=== PATIENT | female | born 1960 | race Caucasian/White ===

== ENCOUNTER → 2022-02-14 13:27 | Outpatient (BNVA) | payer MEDICARE, SELFPAY | PROVIDERS: Family Provider Family Medicine; PCP Family Medicine; Visit Provider Obstetrics & Gynecology | DX: R32 Unspecified urinary incontinence (principal); R10.2 Pelvic and perineal pain | CPT/HCPCS: 81000 ==

== ENCOUNTER 2022-03-07 10:48 | Outpatient (CLI) | payer MEDICARE, SELFPAY ==
--- NOTE | 2022-03-07 11:00 | US_ITS ---
WS: [id number] TRANSABDOMINAL PELVIC AND TRANSVAGINAL PELVIC ULTRASOUND HISTORY: R10.2 - Pelvic and perineal pain COMPARISON: None available. Status post hysterectomy. Uterus is not identified. No midline mass. Right ovary: 2.1 cm x 2.4 cm x 1.1 cm. Small caliber ovary. No solid mass. Normal appearance of the o vary and normal vascularity. Left ovary: Not identified. No adnexal mass. No free fluid. US/US pelvic with transvaginal IMPRESSION: 1. No abnormality identified. 2. Status post hysterectomy. 3. LEFT ovary is not identified.
== END 2022-03-07 10:49 | disposition home or self-care (01) ==
LOC: RAD 10:49
PROVIDERS: Family Provider Family Medicine; PCP Family Medicine; Visit Provider Obstetrics & Gynecology
DX: R10.2 Pelvic and perineal pain (principal); Z90.710 Acquired absence of both cervix and uterus
CPT/HCPCS: 76830; 76856

== ENCOUNTER 2022-06-09 12:49 | Outpatient (CLI) | payer MEDICARE, SELFPAY ==
--- NOTE | 2022-06-09 13:01 | MM_ITS ---
WS: [id number] BILATERAL 3D TOMOSYNTHESIS DIGITAL SCREENING MAMMOGRAPHY WITH CAD CLINICAL INFORMATION: SCREENING HISTORY: Screening mammogram. No current complaints. COMPARISON: May 14, 2020 TECHNIQUE: Bilateral CC and MLO views. FINDINGS: The breasts are composed of heterogeneous fibroglandular density tissue, which can limit the detectio n of small underlying mass lesions. No suspicious mass, asymmetry, calcifications, or architectural d istortion. No evidence of malignancy. A few incidental lucent centered and punctate calcifications. V ascular calcification. MM/[place] [id number] IMPRESSION: BI-RADS: 2-Benign FOLLOW UP: 1 Year Follow-up Recommend return to annual screening mammography.
== END 2022-06-09 12:50 | disposition home or self-care (01) ==
LOC: RAD 12:50
PROVIDERS: PCP Nurse Practitioner Family; Visit Provider Nurse Practitioner Family
DX: Z12.31 Encounter for screening mammogram for malignant neoplasm of breast (principal)
CPT/HCPCS: 77063; 77067

== ENCOUNTER 2023-01-24 14:36 | Oncology outpatient (recurring) (ONCR) | payer MEDICARE, SELFPAY ==
[2023-01-24 16:23] LABS: Basophils % 0.7 %; Eosinophils # 0.1 10^3/uL (0.0-0.8); Eosinophils % 1.7 %; Hematocrit 37.6 % (37.0-47.0); Hemoglobin 12.4 g/dL (11.5-15.3); Lymphocytes # 1.5 10^3/uL (0.8-4.8); Lymphocytes % 27.7 %; Mean Corpuscular Hemoglobin 31.7 pg (28.0-34.0); Mean Corpuscular Volume 96.2 fl (81-99); Mean Platelet Volume 10.9 fL (7.4-10.4); Monocytes # 0.4 10^3/uL (0.2-0.9); Monocytes % 7.9 %; Neutrophils # 3.31 10^3/uL (1.8-7.7); Neutrophils % 61.8 %; Nucleated Red Blood Cells % 0 %; Platelet Count 222 10^3/cmm (130-400); Red Blood Count 3.91 10^6/uL (4.1-5.3); Red Cell Distribution Width 12.6 % (12.1-15.1); White Blood Count 5.4 10^3/uL (4.0-10.0)
[2023-01-24 16:55] LABS: HIV 1 & 2 Antibody Non-Reactive (Non-Reactiv); HIV 1 & 2 Antigen Non-Reactive (Non-Reactiv)
[2023-01-24 17:04] LABS: Hepatitis A Antibody IgM Non-Reactive (Nonreactive); Hepatitis B Core AB, Total Non-Reactive (Nonreactive); Hepatitis B Surface AB 3.5 (11.5-1000); Hepatitis B Surface Antigen Non-Reactive (Nonreactive); Hepatitis C Virus Antibody Non-Reactive (Nonreactive)
[2023-01-25 13:25] LABS: EBV Early Antigen AB IGG <9.00 U/mL; EBV IGM TEST <36.00 U/mL; EBV Nuclear AG <18.00 U/mL
== END 2023-02-02 23:59 | disposition home or self-care (01) ==
PROVIDERS: PCP Nurse Practitioner Family; Visit Provider Internal Medicine Medical Oncology
DX: D69.6 Thrombocytopenia, unspecified (principal); D70.9 Neutropenia, unspecified
CPT/HCPCS: 36415; 85025; 86663; 86664; 86665; 86705; 86706; 86709; 86803; 87340; 87806; 99204

== ENCOUNTER 2023-03-08 12:03 | Oncology outpatient (recurring) (ONCR) | payer MEDICARE, SELFPAY ==
[2023-03-08 12:45] VITALS: BP 131/88; PULSE 97; TEMP 37.3; O2SAT 96
[2023-03-08 13:14] LABS: Basophils % 0.8 %; Eosinophils # 0.1 10^3/uL (0.0-0.8); Eosinophils % 2.8 %; Hematocrit 38.4 % (37.0-47.0); Hemoglobin 12.6 g/dL (11.5-15.3); Lymphocytes # 1.4 10^3/uL (0.8-4.8); Lymphocytes % 55.8 %; Mean Corpuscular HGB Conc 32.8 g/dL (30.0-36.0); Mean Corpuscular Hemoglobin 32.5 pg (28.0-34.0); Mean Platelet Volume 10.4 fL (7.4-10.4); Monocytes # 0.4 10^3/uL (0.2-0.9); Monocytes % 14.9 %; Neutrophils % 25.3 %; Nucleated Red Blood Cells % 0 %; Platelet Count 185 10^3/cmm (130-400); Red Blood Count 3.88 10^6/uL (4.1-5.3); Red Cell Distribution Width 12.8 % (12.1-15.1); White Blood Count 2.5 10^3/uL (4.0-10.0)
[2023-03-08 13:16] LABS: Neutrophils # 0.63 10^3/uL (1.8-7.7)
== END 2023-04-05 23:59 | disposition home or self-care (01) ==
LOC: ONCMED 12:05
PROVIDERS: PCP Nurse Practitioner Family; Visit Provider Internal Medicine Medical Oncology
DX: D70.9 Neutropenia, unspecified (principal); B27.90 Infectious mononucleosis, unspecified without complication; M79.7 Fibromyalgia
CPT/HCPCS: 36415; 85025; 99213

== ENCOUNTER 2023-10-02 17:57 | Inpatient (IN) | payer MEDICARE, SELFPAY ==
--- NOTE | 2023-10-02 18:03 | XRR_ITS ---
PROCEDURE INFORMATION: Exam: XR Chest Exam date and time: 10/02/2023 6:20 PM Age: 63 years old Clinical indication: Other: Weakness TECHNIQUE: Imaging protocol: Radiologic exam of the chest. Views: 1 view. COMPARISON: No relevant prior studies available. FINDINGS: Lungs: Unremarkable. No consolidation or mass. Pleural spaces: Unremarkable. No pleural effusion. No pneumothorax. Heart/Mediastinum: Moderate cardiomegaly is noted. Bones/joints: Unremarkable. XR/XR chest 1V portable [id number] IMPRESSION: Stable cardiomegaly
--- NOTE | 2023-10-02 18:04 | ECG_ITS ---
[facility] Test Date: 2023-10-02 Pat Name: Shirley Gilmore Department: Room: Gender: Female Nurse Discharge: : 1960 Requested By: Jim Boles Order Number: [id number] Corinne MD: Onel Carbone M.D. Measurements Intervals [place] Rate: 49 P: 46 IA: 153 QRS: 1 QRSD: 99 T: -19 QT: 515 QTc: 469 Interpretive Statements SINUS BRADYCARDIA VOLTAGE CRITERIA FOR LVH [MEETS CRITERIA IN ONE OF: R(aVL), S(V1), R(V5), R(V5/V6)+S(V1)] ST DEVIATION AND MODERATE T-WAVE ABNORMALITY, CONSIDER ANTERIOR ISCHEMIA [-0.1+ mV T-WAVE IN V3/V4] Compared to ECG 09/29/2016 01:01:39 Left ventricular hypertrophy now present Possible ischemia now present T-wave abnormality still present Electronically Signed On 10-03-2023 9:13:36 FITNESS SPECIALIST by Onel Carbone M.D. [email or web address]
[2023-10-02 18:05] VITALS: BP 168/85; PULSE 47; RESP 16; TEMP 36.9; O2SAT 96; BMI 33.0
[2023-10-02 18:19] LABS: Glucose Point of Care 109 mg/dL (70-110)
--- NOTE | 2023-10-02 18:26 | CTR_ITS ---
PROCEDURE INFORMATION: Exam: CT Head Without Contrast Exam date and time: 10/02/2023 7:06 PM Age: 63 years old Clinical indication: Altered mental status/memory loss; Additional info: AMS TECHNIQUE: Imaging protocol: Computed tomography of the head without contrast. Radiation optimization: All CT scans at this facility use at least one of these dose optimization techniques: automated exposure control; mA and/or kV adjustment per patient size (includes targeted exams where dose is matched to clinical indication); or iterative reconstruction. COMPARISON: No relevant prior studies available. RADIATION DOSE METRICS: Total DLP (mGy-cm): 1081 FINDINGS: Brain: Normal. No hemorrhage. Unremarkable white matter. No mass effect or acute infarct. Cerebral ventricles: No ventriculomegaly. No midline shift. Paranasal sinuses: Visualized sinuses are unremarkable. No fluid levels. Mastoid air cells: Visualized mastoid air cells are well aerated. Bones/joints: Unremarkable. No acute fracture. Soft tissues: Unremarkable. CT/CT head wo con* [id number] IMPRESSION: No acute intracranial abnormality.
[2023-10-02 18:32] LABS: Basophils % 0.1 %; Eosinophils % 0.1 %; Hematocrit 38.2 % (36-47); Lymphocytes # 1.1 10^3/uL (0.8-4.8); Lymphocytes % 13.9 %; Mean Corpuscular Hemoglobin 31.5 pg (27-33); Mean Corpuscular Volume 95.5 fl (85-98); Mean Platelet Volume 12.2 fL (7.4-10.4); Monocytes # 0.6 10^3/uL (0.2-0.9); Monocytes % 7.1 %; Neutrophils # 6.41 10^3/uL (1.8-7.7); Neutrophils % 78.1 %; Nucleated Red Blood Cells % 0 %; Platelet Count 165 10^3/cmm (157-399); Red Cell Distribution Width 13.6 % (12.1-15.1); White Blood Count 8.21 10^3/uL (3.29-11.43)
--- NOTE | 2023-10-02 18:38 | ED_ITS ---
HPI - Weakness 2 General: Chief complaint: Weakness Stated complaint: npo since sunday larry with ams? Time Seen by Provider: 10/02/23 18:20 Source: EMS Mode of arrival: EMS Limitations: altered mental status History of Present Illness: 63-year-old female here with family stat es that starting Sunday patient has been having increasing weakness. He states that she is not really able able to walk she has not been speaking either she has had diarrhea. No fever. Here patient is following my commands but she is not speaking to me or answering any my questions family states this happened a month ago and it resolved on its own but states that she is continue to worsen with this episode the last 2 days Review of Systems 2 General: Reports: ROS unobtainable due to mental status PFSH ED 2 PFSH: Medical History Epilepsy HTN (hypertension) Recurrent herpes labialis Surgical History H/O tubal ligation H/O rotator cuff surgery left H/O section x1 S/P tonsillectomy H/O: hysterectomy H/O left wrist surgery H/O carpal tunnel repair right hand H/O breast surgery left breast cysts removed Previous back surgery x2 Family History Family/Other Diabetes maternal and paternal aunt and uncle Hyperlipidemia maternal aunt and uncle Hypertension maternal and paternal side Stroke paternal aunt Denies family history of Colon cancer Ovarian cancer Clotting disorder Heart disease Breast cancer Anesthesia complication Bleeding disorder Uterine cancer Thyroid disease Social History Smoking and tobacco/nicotine status: former use of tobacco/nicotine Quit status (tobacco/nicotine): has quit using Former quit date comment: quit in 2012, smoked x 30 years Physical Exam 2 Const: COMMON NORMALS: negative for patient oriented x3 EXAM LIMITATIONS: a ltered mental status HENMT: COMMON NORMALS: normocephalic and atraumatic HEAD & SCALP: n ormocephalic and atraumatic Eye: COMMON NORMALS: Equal, round and reactive pupils present and EOMs intact bilaterally PUPIL: Yes Equal, round and reactive pupils present Neck/C-Spine: COMMON NORMALS: full ROM and supple Chest: COMMONS NORMALS: normal inspection of the chest and normal palpation of entire chest wall Resp: COMMON NORMALS: normal respiratory effort, No retractions, No use of accessory muscles and clear to auscultation bilaterally AUSCULTATION: clear to auscultation bilaterally Cardio: COMMON NORMALS: regular rate, regular rhythm and No murmurs present (Cardio) RATE: regular rate RHYTHM: regular rhythm GI: COMMON NORMALS: Normal to inspection, nondistended, normoactive bowel sounds present, Soft to palpation, non-tender and no masses PALPATION: Yes Soft to palpation Extremity: COMMON NORMALS: normal to inspection and full ROM Neuro: COMMON NORMALS: negative for patient oriented x3 OTHER: Patient does not speak or answer any questions she will follow commands she will lift her arms and legs but is extremely weak in all extremities did have her smile she has no facial droop she able to close her eyes with no difference. Psych: COMMON NORMALS: mental status grossly normal, Normal thought process present and cooperative THOUGHT PROCESS: Normal thought process present Skin: COMMON NORMALS: no rashes or lesions noted and no wounds GENERAL SKIN EXAM: no rashes or lesions noted Course 2 Vital Signs: Vital signs: Vital Signs Temperature 98.5 F 10/02/23 18:05 Pulse Rate 59 L 10/02/23 20:30 Respiratory Rate 14 10/02/23 20:30 Blood Pressure 173/73 10/02/23 20:30 Pulse Oximetry 92 10/02/23 20:30 Oxygen Delivery Me thod Room Air 10/02/23 19:00 MDM - Weakness Medical Decision Making Patient presents with ultimately status going on for [address] here is normal blood work here is normal she does have a urinary tract infection this could be causing her symptoms will start on IV antibiotics and admit at this time. Medical Records I reviewed the patient's medical records. Lab Data I reviewed the patient's lab results. 10/02/23 18:24 10/02/23 18:24 Radiology Impressions Chest X-Ray 10/02/23 18:03 IMPRESSION: Stable cardiomegaly Head CT 10/02/23 18:26 IMPRESSION: No acute intracranial abnormality. Laboratory Results WBC 8.21 10^3/uL (3.29-11.43) 10/02/23 18: RBC 4.00 10^6/uL (3.85-5.65) 10/02/23 18: Hgb 12.60 g/dL (11.27-16.99) 10/02/23 18: Hct 38.2 % (36-47) 10/02/23 18: MCV 95.5 fl (85-98) 10/02/23 18: MCH 31.5 pg (27-33) 10/02/23 18: MCHC 33.0 g/dL (30-55) 10/02/23 18: RDW 13.6 % (12.1-15.1) 10/02/23: Plt Count 165 10^3/cmm (157-399) 10/02/23: MPV 12.2 fL (7.4-10.4) H 10/02/23 18: Neut % (Auto) 78.1 % 10/02/23 18: Lymph % (Auto) 13.9 % 10/02/23 18: [place] % (Auto) 7.1 % 10/02/23 18: Eos % (Auto) 0.1 % 10/02/23 18: Baso % (Auto) 0.1 % 10/02/23: Neut # (Auto) 6.41 10^3/uL (1.8-7.7) 10/02/23: Lymph # (Auto) 1.1 10^3/uL (0.8-4.8) 10/02/23: [place] # (Auto) 0.6 10^3/uL (0.2-0.9) 10/02/23 18: Eos # (Auto) 0.0 10^3/uL (0.0-0.8) 10/02/23: Baso # (Auto) 0.0 10^3/uL (0.0-0.1) 10/02/23: Nucleated RBC % (auto) 0 % 10/02/23: Nucleated RBCs # 0.0 /100WBC 10/02/23 18: PT 14.00 SECONDS (12.1-14.9) 10/02/23 18: INR 1.05 (0.8-1.2) 10/02/23 18:24 Sodium 145 mmol/L (136-145) 10/02/23 18:24 Potassium 3.4 mmol/L (3.5-5.1) L 10/02/23 18:24 Chloride 111 mmol/L (98-107) H 10/02/23 18:24 Carbon Dioxide 20 mmol/L (22-29) L 10/02/23 18:24 Anion Gap 17.4 (5-19) 10/02/23 18:24 BUN 27 mg/dL (8-23) H 10/02/23 18:24 Creatinine 0.6 mg/dL (0.5-0.9) 10/02/23 18:24 GFR Calculation 101.6 mL/min (90-130) 10/02/23 18:24 Glucose 102 mg/dL (65-115) 10/02/23 18:24 POC Glucose 109 mg/dL (70-110) 10/02/23 18:15 Calculated Osmolality 305 mOsm/kg (285-295) H 10/02/23 18:24 Calcium 9.8 mg/dL (8.5-10.5) 10/02/23 18:24 Total Bilirubin 0.7 mg/dL (0.15-1.2) 10/02/23 18:24 AST 33 U/L (0-32) H 10/02/23 18:24 ALT 39 U/L (0-33) H 10/02/23 18:24 Alkaline Phosphatase 111 U/L (35-105) H 10/02/23 18:24 Ammonia 25 umol/L (11-51) 10/02/23 18:24 Troponin T Baseline 19 ng/L (0-10) H 10/02/23 18:24 Troponin T 120 Minute 19.09 ng/L (0-10) H 10/02/23 20:28 Delta Troponin T 0.09 ABS# (0-10) 10/02/23 20:28 Total Protein 7.2 g/dL (6.6-8.7) 10/02/23 18:24 Albumin 4.5 g/dL (3.5-5.2) 10/02/23 18:24 Globulin 2.7 g/dL (1.3-4.6) 10/02/23 18:24 Lipase 37 U/L (13-60) 10/02/23 18:24 Urine Color Yellow (Yellow) 10/02/23 19:56 Urine Appearance Sl hazy (CLEAR) A 10/02/23 19:56 Urine pH 5 (5-7) 10/02/23 19:56 Ur Specific [place] 1.020 (1.005-1.030) 10/02/23 19:56 Urine Protein 1+ (Negative) H 10/02/23 19:56 Urine Glucose (UA) Norm (Normal) 10/02/23 19:56 Urine Ketones 1+ (Negative) H 10/02/23 19:56 Urine Blood Neg (Negative) 10/02/23 19:56 Urine Nitrate Positive (Negative) H 10/02/23 19:56 Urine Bilirubin Neg (Negative) 10/02/23 19:56 Urine Urobilinogen Norm mg/dL (Negative) 10/02/23 19:56 Ur Leukocyte Esterase 1+ (Negative) H 10/02/23 19:56 Urine RBC 0-4 /hpf (0-2) H 10/02/23 19:56 Urine WBC 40-55 /hpf (0-5) H 10/02/23 19:56 Ur Squamous Epith Cells 0-4 /hpf (0-5) H 10/02/23 19:56 Amorphous Sediment Not Reportable 10/02/23 19:56 Urine Bacteria 2+ /hpf (NONE) H 10/02/23 19:56 Urine Mucus 2+ /hpf 10/02/23 19:56 Urine Opiates Screen Negative ng/mL (Negative) 10/02/23 19:56 Ur Barbiturates Screen Negative ng/mL (Negative) 10/02/23 19:56 Valproic Acid 2.8 ug/mL (50-100) L 10/02/23 18:24 Ur Phencyclidine Scrn Negative ng/mL (Negative) 10/02/23 19:56 Ur Amphetamines Screen Negative ng/mL (Negative) 10/02/23 19:56 U Benzodiazepines Scrn Negative ng/mL (Negative) 10/02/23 19:56 Urine Cocaine Screen Negative ng/mL (Negative) 10/02/23 19:56 U Marijuana (THC) Screen Positive ng/mL (Negative) H 10/02/23 19:56 Ethyl Alcohol < 10 mg/dL (0-10) 10/02/23 18:24 All radiology interpretation(s) finalized by discharge EKG Data EKG 1: I personally reviewed and interpreted this EKG as follows: EKG interpretation date: 10/02/23 EKG interpretation time: 18:28 Interpretation: sinus yodit hr [address] elevation qrs 99 qtc 486 Discharge Plan Discharge Patient Disposition: Admitted As Inpatient Clinical Impression: UTI (urinary tract infection), Altered mental status Condition: Stable Prescriptions: No Action divalproex [Depakote ER] 500 mg tablet extended release 24 hr 500 mg PO BID pregabalin [Lyrica] 200 mg capsule 200 mg PO TID acetaminophen [Tylenol] 325 mg tablet 325 mg PO QID PRN multivitamin Tablet 1 tab PO DAILY biotin 5 mg capsule 5 mg PO DAILY lysine 1,000 mg tablet 1,000 mg PO DAILY magnesium 200 mg tablet 200 mg PO DAILY cholecalciferol (vitamin D3) [Vitamin D3] 10 mcg (400 unit) capsule 10 mcg PO DAILY Referrals: Sia Aguilar [Primary Care Provider] - Coding Level of Care Code ED [employer] 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
[2023-10-02] MEDS: sodium chloride 0.9% 1,000 ML 999 ML IV (18:44)
[2023-10-02 18:47] LABS: INR 1.05 (0.8-1.2)
[2023-10-02 18:55] LABS: Ammonia 25 umol/L (11-51)
[2023-10-02 18:57] LABS: Alanine Aminotransferase 39 U/L (0-33); Albumin Level 4.5 g/dL (3.5-5.2); Alcohol Level < 10 mg/dL (0-10); Alkaline Phosphatase 111 U/L (35-105); Anion Gap 17.4 (5-19); Aspartate Amino Transferase 33 U/L (0-32); Blood Urea Nitrogen 27 mg/dL (8-23); Calcium 9.8 mg/dL (8.5-10.5); Carbon Dioxide 20 mmol/L (22-29); Chloride 111 mmol/L (98-107); Creatinine Clr Calc Pharmacy 93.9348; Globulin 2.7 g/dL (1.3-4.6); Glomerular Filtration Rate 101.6 mL/min (90-130); Glucose 102 mg/dL (65-115); Lipase 37 U/L (13-60); Osmolality Calculated 305 mOsm/kg (285-295); Potassium 3.4 mmol/L (3.5-5.1); Sodium 145 mmol/L (136-145); Total Bilirubin 0.7 mg/dL (0.15-1.2); Total Protein 7.2 g/dL (6.6-8.7)
[2023-10-02 19:00] VITALS: BP 151/80; PULSE 52; O2SAT 97
[2023-10-02 19:44] VITALS: BP 147/80; PULSE 52; RESP 20; O2SAT 93
[2023-10-02 19:57] LABS: Troponin(5th) Baseline 19 ng/L (0-10)
[2023-10-02 20:10] LABS: Glucose Urine UA Norm (Normal); Protein Urine 1+ (Negative); Urine Appearance SL Hazy (CLEAR); Urine Color Yellow (Yellow); pH Urine 5 (5-7)
[2023-10-02 20:11] LABS: Add Urine Microscopic? YES; Amphetamines Screen Urine Negative (Negative); Barbiturates Screen Urine Negative (Negative); Benzodiazepines Screen Urine Negative (Negative); Bilirubin Urine Neg (Negative); Blood Urine Neg (Negative); Cocaine Screen Urine Negative (Negative); Ketones Urine 1+ (Negative); Leukocyte Esterase Urine 1+ (Negative); Nitrate Urine Positive (Negative); Opiate Screen Urine Negative (Negative); PCP Screen Urine Negative (Negative); THC Screen Urine Positive (Negative); Urobilinogen Urine Norm (Negative)
[2023-10-02 20:15] LABS: Add Urine Culture? Yes; Bacteria Urine 2+ /hpf; Mucus Urine 2+ /hpf; RBC Urine 0-4 /hpf (0-2); Squamous Epithelial Cell Urine 0-4 /hpf (0-5); WBC Urine 40-55 /hpf (0-5)
[2023-10-02 20:30] VITALS: BP 173/73; PULSE 59; RESP 14; O2SAT 92
[2023-10-02] MEDS: cefTRIAXone 1,000 MG in sodium chloride 0.9% (plus) 50 ML 100 MG IV (20:34)
[2023-10-02 20:52] LABS: Valproic Acid Level 2.8 ug/mL (50-100)
--- NOTE | 2023-10-02 21:00 | P.HP_ITS ---
Providers/Chief Complaint 2 Primary Care Provider: Sia Aguilar Chief Complaint: npo since sunday diareah with ams? History of Present Illness 63-year-old lady without history of dementia with history of epilepsy, recurrent herpes labialis reportedly on chronic suppression with antiviral, hypertension, has been feeling unwell since Sunday, has had nausea, vomiting, generally weak, blood pressure was low at 1 point at home in the 90s. Poor oral intake, had possibly asked for water at 1 time. Has been communicating less and in the last day or 2 has may be set up reports and otherwise has not been speaking. In ER she does open her eyes, makes eye contact, seems to nod/hum no when asked if she is in pain or discomfort, but does not answer any other questions, with RIS and conversational COVID-19. Family notes she has been feeling cold. She did not have any fever, headache, shortness of breath or cough. He did not notice any rashes apart from moisture damage/irritation to her buttocks from diarrhea. She reportedly had a similar episode a few weeks back but at that time it lasted shorter time, symptoms resolved spontaneously much quicker. She has not missed her medications, has been taking valproic acid for seizures up until Sunday, but with her acute illness has not been able to take any of her medications since then. Her seizures were tonic-clonic, family have not noticed any seizure-like activity. Review of Systems 2 General: Reports: ROS unobtainable due to mental status (Basic ROS obtained from family) Const: Reports: other (Feeling cold. ); Denies: fever(s) ENMT: Denies: throat pain Card: Denies: chest pain or edema (In the past, but not currently. ) Resp: Denies: dyspnea, productive cough or non-productive cough GI: Reports: nausea, vomiting and diarrhea; Denies: abdominal pain, hematemesis, coffee ground emesis, hematochezia or melena Skin/Breast: Denies: rash (Apart from moisture damage on butocks. ) Neuro: Reports: confusion, behavioral changes and difficulty communicating thoughts; Denies: headache(s), numbness in extremities, weakness in extremities or involuntary movements Medications/Allergies Home Medications Medication Instructions Recorded Confirmed Last Taken Type acetaminophen 325 mg tablet 325 mg PO QID PRN 02/14/22 03/08/23 Unknown History (Tylenol) biotin 5 mg capsule 5 mg PO DAILY 02/14/22 03/08/23 Unknown History divalproex 500 mg tablet,extended 500 mg PO BID 02/14/22 03/08/23 Unknown History release 24 hr (Depakote ER) lysine 1,000 mg tablet 1,000 mg PO DAILY 02/14/22 03/08/23 Unknown History multivitamin 1 tab PO DAILY 02/14/22 03/08/23 Unknown History pregabalin 200 mg capsule (Lyrica) 200 mg PO TID 02/14/22 03/08/23 Unknown History cholecalciferol (vitamin D3) 10 10 mcg PO DAILY 01/24/23 03/08/23 Unknown History mcg (400 unit) capsule (Vitamin D3) magnesium 200 mg tablet 200 mg PO DAILY 01/24/23 03/08/23 Unknown History Allergies Allergy/AdvReac Type Severity Reaction Status Date / Time No Known Allergies Allergy Verified 03/08/23 13:26 PFSH Acute 2 PFSH: Medical History Epilepsy HTN (hypertension) Recurrent herpes labialis Surgical History H/O tubal ligation H/O rotator cuff surgery left H/O section x1 S/P tonsillectomy H/O: hysterectomy H/O left wrist surgery H/O carpal tunnel repair right hand H/O breast surgery left breast cysts removed Previous back surgery x2 Family History Family/Other Diabetes maternal and paternal aunt and uncle Hyperlipidemia maternal aunt and uncle Hypertension maternal and paternal side Stroke paternal aunt Denies family history of Colon cancer Ovarian cancer Clotting disorder Heart disease Breast cancer Anesthesia complication Bleeding disorder Uterine cancer Thyroid disease Social History Smoking and tobacco/nicotine status: former use of tobacco/nicotine Quit status (tobacco/nicotine): has quit using Former quit date comment: quit in 2012, smoked x 30 years Vitals/I&O/Wt Last Vital Signs Temp 98.5 F 10/02/23 18:05 Pulse 59 L 10/02/23 20:30 Resp 14 10/02/23 20:30 BP 173/73 10/02/23 20:30 Pulse Ox 92 10/02/23 20:30 O2 Del Method Room Air 10/02/23 19:00 Weight last 48 hrs Weight 79.379 kg Physical Exam 2 Narrative: Accompanied by her and her sister. Const: COMMON NORMALS: negative for patient oriented x3 GENERAL APPEARANCE: not cooperative ORIENTATION/CONSCIOUSNESS: not awake (Wakes up to voice, makes eye contact, hums yes/no answers to 1-2 questions) HENMT: COMMON NORMALS: oropharynx normal Neck/C-Spine: COMMON NORMALS: no JVD Resp: COMMON NORMALS: normal respiratory effort and clear to auscultation bilaterally AUSCULTATION: clear to auscultation bilaterally Cardio: COMMON NORMALS: no JVD, regular rhythm, S1 normal heart sound present, S2 normal heart sound present and No murmurs present (Cardio) RHYTHM: regular rhythm HEART SOUNDS: S1 normal heart sound present and S2 normal heart sound present GI: COMMON NORMALS: Normal to inspection, nondistended, normoactive bowel sounds present, Soft to palpation and non-tender PALPATION: Yes Soft to palpation Extremity: COMMON NORMALS: no joint enlargement and no pedal edema Neuro: COMMON NORMALS: moves all extremities; negative for patient oriented x3 SENSORIUM/ORIENTATION: Yes alert OTHER: He is currently able to track although does not overly follow directions. I do not appreciate facial droop. She does not speak, difficulty finding any dysarthria, appears to have possibly aphasia. Does harm yes or no answers to monitor questions been insistent on going back to sleep, covers herself up with a blanket. Does appear to move all extremities. Skin: COMMON NORMALS: no rashes or lesions noted GENERAL SKIN EXAM: no rashes or lesions noted Data 10/02/23 18:24 10/02/23 18:24 A&P Assessment and plan (1) Acute encephalopathy: History had to be obtained from her family as she is unable to provide. Progressive encephalopathy since Sunday, initial symptoms were nausea vomiting and diarrhea, poor oral intake, generally weak. Etiology not clear. Reviewed vitals, CBC, INR, baseline anterior troponin, lipase, UA, urine drug screen, CT head, chest x-ray, ER note, discussed with ER physician. She does have at least UTI, started on treatment with ceftriaxone. Continue treatment. Urine drug screen positive for only marijuana. No seizure activity. Will check valproic acid level for possible encephalopathy related to medication toxicity. She had a similar episode several weeks back also with nausea vomiting and diarrhea as well as confusion, but seems to have resolved back to them. Discussed with family CVA could not be ruled out at this time but seems less likely. She otherwise does not appear to show focal abnormality apart from possible aphasia, symptoms appear to be more global. Possible acute metabolic encephalopathy secondary to UTI, acute illness with gastroenteritis and dehydration. Does have recurrent herpes labialis and reportedly is post to be on chronic suppression with an antiviral. Discussed consideration of herpes encephalitis. Cannot rule out at current time. Discussed treating with acyclovir empirically for now. Discussed requesting lumbar puncture for tomorrow. Cannot easily obtain MRI with her due to confusion and reports she is quite claustrophobic. In case of rapid improvement tomorrow, consider de-escalation of acyclovir. Monitor for risk of decreased blood counts, acute kidney injury. Additional assessment for gastroenteritis requested with stool studies. Poor oral intake, with nausea and vomiting, clear liquid diet as tolerating for now, otherwise will keep with IV hydration. She also has been feeling quite cold recently, will check TSH. Incidentally noted bradycardia but I do not think it is contributing to her current condition, although will want subsequent follow-up. (2) UTI (urinary tract infection): Ceftriaxone. Follow-up urine culture. (3) Altered mental status: Plan Bradycardia: Incidentally noted bradycardia but I do not think it is contributing to her current condition, although will want subsequent follow-up. Epilepsy: Check valproic acid level. Requesting to confirm home medications. No seizure-like activity. Resume valproic acid once toxicity excluded. Hypokalemia: Requested replacement potassium. Gastroenteritis, possibly viral with noted acute transaminitis, mild alk phos abnormality. Check respiratory viral panel. Will check hepatitis panel. Transaminitis: Possibly related to acute viral gastroenteritis. Hepatitis panel. Valproic acid level. Recurrent herpes labialis: Reportedly he is supposed to be on chronic antibiotic suppression. Requested to confirm home medications, please review and reconcile once available. Attestations 2 Medical Necessity Statement*: Placed in observation for additional assessment management of acute encephalopathy Diagnoses Acute encephalopathy G93.40 UTI (urinary tract infection) N39.0 Altered mental status R41.82
[2023-10-02 21:05] LABS: Troponin 5 2HR 19.09 ng/L (0-10); Troponin 5 2HR Delta 0.09 ABS# (0-10)
[2023-10-02 22:21] VITALS: BP 142/73; PULSE 62; RESP 16; TEMP 37; O2SAT 95
--- NOTE | 2023-10-02 22:21 | PC.NURSE ---
Patient received to floor at 2200 Patient only able to respond with ok or mmmhmmm . Patient cleaned and brief changed due to incontinence. Thick application of barrier cream applied due to redness to groin and elvin area. Noted some blisters and induration to gluteal fold. Patient withdraws from pain. When asked about pain she indicated hurts to skin all over. Unable to ask admission questions at this time. Will continue to monitor.
[2023-10-02 22:42] LABS: Hepatitis B Core IgM Non-Reactive (Nonreactive); Hepatitis B Surface Antigen Non-Reactive (Nonreactive); Hepatitis C Virus Antibody Non-Reactive (Nonreactive)
[2023-10-02] MEDS: lactated ringers 1,000 ML 100 ML IV (22:55)
[2023-10-02] MEDS: heparin 5,000 unit/mL INJ 1 mL 5000 UNIT SUBCUT (22:56)
[2023-10-02] MEDS: lidocaine 1% 5 ML in potassium chloride premix 100 ML 52.5 ML IV (22:56)
[2023-10-02 23:06] LABS: Thyroid Stimulating Hormone 1.82 uIU/mL (0.27-4.20)
[2023-10-02 23:26] LABS: Valproic Acid Level 2.8 ug/mL (50-100)
[2023-10-02 23:29] LABS: Hepatitis A Antibody IgM Non-Reactive (Nonreactive)
[2023-10-03] VITALS: BP 143/63; PULSE 62; RESP 17; TEMP 36.9; O2SAT 94
[2023-10-03 00:44] LABS: Basophils % 0.1 %; Eosinophils % 0.1 %; Hematocrit 32.7 % (36-47); Lymphocytes # 1.2 10^3/uL (0.8-4.8); Lymphocytes % 17.8 %; Mean Corpuscular HGB Conc 34.3 g/dL (30-55); Mean Corpuscular Hemoglobin 32.3 pg (27-33); Mean Corpuscular Volume 94.2 fl (85-98); Mean Platelet Volume 12.2 fL (7.4-10.4); Monocytes # 0.6 10^3/uL (0.2-0.9); Monocytes % 8.9 %; Neutrophils # 4.91 10^3/uL (1.8-7.7); Neutrophils % 72.7 %; Nucleated Red Blood Cells % 0 %; Platelet Count 142 10^3/cmm (157-399); Red Blood Count 3.47 10^6/uL (3.85-5.65); Red Cell Distribution Width 13.6 % (12.1-15.1); White Blood Count 6.76 10^3/uL (3.29-11.43)
[2023-10-03 01:01] LABS: Alanine Aminotransferase 33 U/L (0-33); Albumin Level 4.1 g/dL (3.5-5.2); Alkaline Phosphatase 97 U/L (35-105); Anion Gap 17.3 (5-19); Aspartate Amino Transferase 27 U/L (0-32); Blood Urea Nitrogen 25 mg/dL (8-23); Carbon Dioxide 19 mmol/L (22-29); Chloride 112 mmol/L (98-107); Creatinine Clr Calc Pharmacy 115.1242; Globulin 2.3 g/dL (1.3-4.6); Glomerular Filtration Rate 125.4 mL/min (90-130); Glucose 105 mg/dL (65-115); Osmolality Calculated 305 mOsm/kg (285-295); Potassium 3.3 mmol/L (3.5-5.1); Sodium 145 mmol/L (136-145); Total Bilirubin 0.5 mg/dL (0.15-1.2); Total Protein 6.4 g/dL (6.6-8.7)
[2023-10-03 01:06] LABS: Troponin 5 6HR 23.82 ng/L (0-10); Troponin 5 6HR Delta 4.82 ng/L (0-12)
[2023-10-03 01:08] LABS: Adenovirus Not Detected (NOT DETECT); Chlamydia Pneumoniae Not Detected (NOT DETECT); Coronavirus 229E,HKU1,NL63,OC4 Not Detected (NOT DETECT); Human Metapneumovirus Not Detected (NOT DETECT); Human Rhinovirus/Enterovirus Not Detected (NOT DETECT); Influenza A Not Detected (NOT DETECT); Influenza A H1 Not Detected (NOT DETECT); Influenza A H1-2009 Not Detected (NOT DETECT); Influenza A H3 Not Detected (NOT DETECT); Influenza B Not Detected (NOT DETECT); Mycoplasma Pneumoniae Not Detected (NOT DETECT); Parainfluenza Virus Type 1 Not Detected (NOT DETECT); Parainfluenza Virus Type 2 Not Detected (NOT DETECT); Parainfluenza Virus Type 3 Not Detected (NOT DETECT); Parainfluenza Virus Type 4 Not Detected (NOT DETECT); Respiratory Syncytial Virus A Not Detected (NOT DETECT); Respiratory Syncytial Virus B Not Detected (NOT DETECT); SARS-COV-2 Not Detected (NOT DETECT)
[2023-10-03 01:28] LABS: Calcium 8.8 mg/dL (8.5-10.5)
--- NOTE | 2023-10-03 02:24 | USCV_ITS ---
Shirley Gilmore Age: 63 Gender: F : 1960 Exam Date: 10/03/2023 21:14 Ordering Phys: Lan Ring MD Technologist: INGRIS Exam Location: [facility] [place] Indication: aphasia. Patient is still unable to verbalize much, confusion, disoriented. Risk Factors: aphasia. Patient is still unable to verbalize much, confusion, disoriented. Previous Vascular Surgery: unknown Right Brachial BP: 167 / 92 Left Brachial BP: / Right Left Velocity (cm/s) Spectral Plaque Velocity (cm/s) Spectral Plaque Syst/Diast Broadening Syst/Diast Broadening 55.20/ 8.80 Min None Prox CCA 72.20 / 12.30 Min None 66.20/ 15.40 None None Mid CCA 61.40 / 17.90 None None 64.50/ 16.30 Min None Distal CCA 58.30 / 14.00 Min None 46.60/ 13.20 Min Homo Prox ICA 42.70 / 11.20 Min Homo 41.90/ 11.70 Min Homo Mid ICA 53.90 / 19.20 Min Hetro 38.10/ 12.40 Min Homo Distal ICA 47.20 / 19.30 Min Homo 89.30 Min Homo ECA 75.40 None Homo 0.70 ICA/CCA 0.75 Antegrade Vertebral Antegrade 28.70/ 7.80 cm/s 46.60/ 16.30 cm/s Tri Subclavian Tri 55.20 75.40 FINDINGS Comparison: none available. No significant elevation of systolic or diastolic velocities. Waveforms are normal. No significant amount of calcified plaque or intimal thickening identified. CONCLUSIONS Normal carotid doppler ultrasound. Dr. Marilee Yu DO (Electronically Signed) Final Date: 04 October 2023 07:41 S
[2023-10-03 04:00] VITALS: BP 149/80; PULSE 54; RESP 17; TEMP 36.6; O2SAT 95
[2023-10-03] MEDS: acyclovir 800 MG in sodium chloride 0.9% (100 ml) 100 ML 110 MG IV (06:31)
--- NOTE | 2023-10-03 06:49 | PC.NURSE ---
patient continues to have persistent watery, loose stool. Patient elvin area if red and excoriated. patient does not like to be cleaned due to severe pain to elvin region.
[2023-10-03 07:43] VITALS: BP 152/65; PULSE 64; RESP 16; O2SAT 93
--- NOTE | 2023-10-03 08:02 | PC.PHAR ---
PT UNABLE TO VERIFY MEDS- MEDICATIONS VERIFIED USING EXTERNAL MED LIST LAST FILLED AND CALLED [facility]- REMOVED DIVALPROEX 500MG LAST FILLED JANUARY 2023 30DS
[2023-10-03] MEDS: lactated ringers 1,000 ML 100 ML IV ×2 (08:23→19:49)
[2023-10-03 09:09] LABS: Magnesium 1.9 mg/dL (1.7-2.3)
[2023-10-03] MEDS: LORazepam 2 mg/mL INJ 10 mL MDV 1 MG IVP ×2 (09:48→16:39)
--- NOTE | 2023-10-03 09:50 | P.PN_ITS ---
Subjective 2 Subjective: History and physical was reviewed. Patient interviewed. She does not give me any verbal responses but can follow some simple directions. Exam responses are inconsistent at times with her being able to do some things, but not others. Medications: Reviewed: Yes Vitals/I&O/Wt Last Vital Signs Temp 97.8 F 10/03/23 04:00 Pulse 64 10/03/23 07:43 Resp 16 10/03/23 07:43 BP 152/65 10/03/23 07:43 Pulse Ox 93 10/03/23 07:43 O2 Del Method Room Air 10/03/23 04:00 10/02/23 10/03/23 10/03/23 22:59 06:59 14:59 Intake Total 50 / 50 1105 / 1155 1182.667 / 1182.667 Balance 50 / 50 1105 / 1155 1182.667 / 1182.667 Weight last 48 hrs Weight 82.214 kg Weight 82.599 kg Weight 79.379 kg Physical Exam 2 Narrative: General exam no distress, moves all extremities Neck supple Cardiovascular regular rate and rhythm Lungs clear Abdomen soft Extremities no cyanosis clubbing or edema Data 10/03/23 00:41 10/03/23 00:41 Micro: Microbiology 10/02/23 23:36 Stool Lactoferrin - Final Stool Occult Blood (FIT) - Final A&P Assessment and plan (1) Acute encephalopathy: Cannot obtain significant history from patient Could be consistent with acute infectious encephalopathy from UTI Was initiated on acyclovir for possibility of herpes encephalitis, and an LP has been ordered. This is probably of lower likelihood There is also a possibility of functional disorder. Her responses are variable. Urine drug screen is positive for marijuana Family indicates she may not have been taking any of her medication lately. They also relate that she had a similar episode of this lasting 3 days of which she stayed in bed, and this spontaneously resolved. This happened about a month ago. They relate she has some stress, but no more than usual. Medicine list has been reconciled. Family believes she is on Depakote, but this is not on her medicine list currently. Will have to look at this again, and consider restarting medication that is appropriate when she is able to take p.o. Secondary to concern of functional disorder for her encephalopathy will give 1 mg of Ativan IV Continue hydration Close follow-up with clinical exams. At this time not a good candidate for MRI, CT admitting physicians commentary. Hold heparin dose today to facilitate LP (2) UTI (urinary tract infection): Continue ceftriaxone, await culture (3) Altered mental status: See above Plan Bradycardia, stable Questionable history of seizure disorder. No evidence of seizure-like activity here Hypokalemia, replete potassium. Check magnesium. Possible gastroenteritis. 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 No antiviral is on home medicine list. Attestations 2 Medical Necessity Statement*: Needs continued hospital stay secondary to persistent encephalopathy. Changed to regular admission. Diagnoses Acute encephalopathy G93.40 UTI (urinary tract infection) N39.0 Altered mental status R41.82 Time Spent (min) 24
--- NOTE | 2023-10-03 10:25 | PC.NURSE ---
ok to hold liquid potassium until pt is more alert, per Dr. Martines
[2023-10-03] MEDS: acetaminophen 325 mg Tablet 650 MG PO (11:29)
[2023-10-03 12:00] VITALS: BP 156/61; PULSE 57; RESP 17; TEMP 36.7; O2SAT 93
[2023-10-03 16:00] VITALS: BP 149/65; PULSE 62; RESP 17; TEMP 36.9; O2SAT 92
[2023-10-03] MEDS: valproic acid inj 500 MG in sodium chloride 0.9% 50 ML 55 MG IV (16:29)
[2023-10-03 20:00] VITALS: BP 167/92; PULSE 54; RESP 26; TEMP 36.9; O2SAT 94
--- NOTE | 2023-10-03 20:51 | PC.NURSE ---
This nurse mentioned Pregabalin was to be administered tonight and the pt stated she already took it right before this nurse arrived on shift. The and other visitor at bedside agreed for this to be factual. During change of shift report dayshift nurse stated she finally took it for her not long before this nurses arrival. The time of administration is thought to be between [address] Jones was notified and orders were to hold the dose tonight and re time it for 0900 tomorrow morning.
[2023-10-03] MEDS: cefTRIAXone 1,000 MG in sodium chloride 0.9% (plus) 50 ML 100 MG IV (21:28)
[2023-10-04 00:40] VITALS: BP 157/78; PULSE 48; RESP 15; TEMP 37; O2SAT 97
[2023-10-04] MEDS: heparin 5,000 unit/mL INJ 1 mL 5000 UNIT SUBCUT (03:09)
[2023-10-04 04:00] VITALS: BP 159/89; PULSE 50; RESP 18; TEMP 36.8; O2SAT 94
--- NOTE | 2023-10-04 04:31 | PC.NURSE ---
Everytime the pt has a bowel movement, urine is voided in with the potential specimen. This nurse called lab if the urine would allow the ordered c-diff test to still be ran. Lab let this nurse know that nay urine contaminates the specimen not allowing it to be ran. C-diff test is still pending at this due to this reason.
[2023-10-04 04:53] VITALS: BMI 33.8
[2023-10-04 05:16] LABS: Basophils % 0.5 %; Eosinophils % 0.7 %; Hematocrit 36.4 % (36-47); Lymphocytes # 1.4 10^3/uL (0.8-4.8); Mean Corpuscular HGB Conc 33.2 g/dL (30-55); Mean Corpuscular Hemoglobin 31.4 pg (27-33); Mean Corpuscular Volume 94.5 fl (85-98); Mean Platelet Volume 12.1 fL (7.4-10.4); Monocytes # 0.5 10^3/uL (0.2-0.9); Monocytes % 8.3 %; Neutrophils # 3.72 10^3/uL (1.8-7.7); Neutrophils % 64.5 %; Nucleated Red Blood Cells % 0 %; Platelet Count 154 10^3/cmm (157-399); Red Blood Count 3.85 10^6/uL (3.85-5.65); White Blood Count 5.77 10^3/uL (3.29-11.43)
[2023-10-04 05:52] LABS: Alanine Aminotransferase 47 U/L (0-33); Albumin Level 4.1 g/dL (3.5-5.2); Alkaline Phosphatase 104 U/L (35-105); Anion Gap 17.1 (5-19); Aspartate Amino Transferase 47 U/L (0-32); Blood Urea Nitrogen 17 mg/dL (8-23); Carbon Dioxide 20 mmol/L (22-29); Chloride 112 mmol/L (98-107); Creatinine Clr Calc Pharmacy 114.1177; Globulin 2.5 g/dL (1.3-4.6); Glomerular Filtration Rate 125.4 mL/min (90-130); Glucose 86 mg/dL (65-115); Osmolality Calculated 303 mOsm/kg (285-295); Potassium 3.1 mmol/L (3.5-5.1); Sodium 146 mmol/L (136-145); Total Bilirubin 0.5 mg/dL (0.15-1.2); Total Protein 6.6 g/dL (6.6-8.7)
[2023-10-04 06:00] VITALS: BMI 34.7
[2023-10-04] MEDS: lactated ringers 1,000 ML 100 ML IV (07:08)
[2023-10-04] MEDS: potassium chloride ER 20 mEq Tablet 40 MEQ PO (07:10)
[2023-10-04 08:00] VITALS: BP 165/89; PULSE 53; RESP 18; TEMP 36.7; O2SAT 94
--- NOTE | 2023-10-04 08:10 | P.PN_ITS ---
Subjective 2 Subjective: Patient resting in bed this morning on room air eating breakfast. Patient is noted to be alert and oriented x 4 but cannot recall yesterday's events. Mrs. Gilmore denies shortness of breath, chest pain, and states that she feels overall back to her self. Medications: Reviewed: Yes Vitals/I&O/Wt Last Vital Signs Temp 98.3 F 10/04/23 04:00 Pulse 50 L 10/04/23 04:00 Resp 18 10/04/23 04:00 BP 159/89 10/04/23 04:00 Pulse Ox 94 10/04/23 04:00 O2 Del Method Room Air 10/04/23 04:00 10/03/23 10/04/23 10/04/23 22:59 06:59 14:59 Intake Total 1400 / 2632.667 911.667 / 911.667 Output Total 400 / 400 Balance 1400 / 2632.667 -400 / 2232.667 911.667 / 911.667 Weight last 48 hrs Weight 179 lb 2 oz Weight 181 lb 4 oz Weight 182 lb 1.6 oz Weight 175 lb Physical Exam 2 Narrative: General exam no distress, moves all extremities Neck supple Cardiovascular regular rate and rhythm Lungs clear throughout Abdomen soft, nontender. Extremities no cyanosis clubbing or edema Data 10/04/23 04:45 10/04/23 04:45 Coding Level of Care Code Acute Code for Chg Fwd
[2023-10-04] MEDS: pregabalin 50 mg Capsule 100 MG PO (09:30)
[2023-10-04] MEDS: divalproex ER 500 mg Tablet (24H) PO (09:30)
--- NOTE | 2023-10-04 10:12 | P.DS_ITS ---
Discharge Providers Date of Admission: 10/03/23 09:59 Date of Discharge: October 04, 2023 Attending Provider at Admission: Lan Ring Attending Provider at Discharge: Guy Martines MD Primary Care Provider: Sia Aguilar Diagnoses at Discharge Discharge Diagnosis (1) Acute encephalopathy: Status: Acute (2) UTI (urinary tract infection): Status: Acute (3) Altered mental status: Status: Acute Reason for Visit Reason for Visit: npo since sunday larry with ams? Hospital Course Hospital Course Shirley is a 63-year-old white female with history of possible seizure disorder who presented with some nausea and vomiting, loose stool, and not responding normally. There was some concern whether she was able to take her medicines during her illness. She had stopped responding, and stop giving verbal, and wanting to lay around in bed. This has happened to her 1 month prior, lasting 3 days and then spontaneously resolving. Differential was understandably quite broad on admission. Depakote levels were obtained which were not elevated. CT demonstrated no obvious abnormality, and exam was not consistent with CVA. A UTI was noted so metabolic encephalopathy from this could not be completely ruled out. There were plans for lumbar puncture, and there were even possible concerns about herpetic encephalitis. When I evaluated the patient after admission her exam findings were inconsistent at times. I suspected she might have a functional/conversion disorder. I gave her Ativan 1 mg IV and very quickly she became more conversational, had no focal deficits, and steadily improved. The following day she was back to her baseline, ambulating and talking normally. Lumbar puncture, acyclovir has been discontinued/stopped the day before. I did also give her a infusion of Depacon the day prior to discharge, following the Ativan, as she had not had this for several days and may have been used to treat underlying seizure disorder and/or mental health difficulties. On day of discharge she was quite conversational, had no deficits, and wanted to go home. I discussed with her the possibility of neurologic conditions such as seizure disorder, as well as the potential for conversion disorder. She acknowledged she has been under quite a bit of stress lately as well. She was willing to follow-up with neurology as well as behavioral health. She is to continue her Depakote 500 mg twice daily which she reports she was taking prior to coming to the hospital. I did lower her dose of Lyrica slightly, done secondary to lethargy on admission. She was given opportunity ask questions, and agreed with the plan. She will follow-up with her primary as well. Physical Exam Narrative: General exam no distress Neck is supple Cardiovascular regular rate and rhythm without murmur Lungs clear Abdomen is soft Extremities no cyanosis clubbing edema Neuro no focal deficits Discharge Data Studies Completed and Pending Completed Studies During Hospitalization Category Date Time Status CT head wo con* [id number] Stat Cat Scan 10/02/23 18:26 Completed XR chest 1V portable [id number] Stat Exams 10/02/23 18:03 Completed CV carotid duplex BI* [id number] Routine Ultrasound 10/03/23 02:24 Completed Pending at discharge Category Date Time Status C.Diff PCR (Lab) Routine Lab 10/02/23 18:33 Ordered Complete Blood Count w/Auto AM LABS Lab 10/05/23 04:00 Ordered Comprehensive Metabolic Panel AM LABS Lab 10/05/23 04:00 Ordered Cyto Order Verification Routine Lab 10/02/23 22:21 Ordered OVA and Parasites, Conc and PE Routine Lab 10/02/23 18:33 Ordered Salmonella / Shigella / Campy Routine Lab 10/02/23 18:33 Ordered Urine Culture Stat Lab 10/02/23 19:56 Results Radiology Impressions Chest X-Ray 10/02/23 18:03 IMPRESSION: Stable cardiomegaly Head CT 10/02/23 18:26 IMPRESSION: No acute intracranial abnormality. Laboratory Results WBC 5.77 10^3/uL (3.29-11.43) 10/04/23 04:45 RBC 3.85 10^6/uL (3.85-5.65) 10/04/23 04:45 Hgb 12.10 g/dL (11.27-16.99) 10/04/23 04:45 Hct 36.4 % (36-47) 10/04/23 04:45 MCV 94.5 fl (85-98) 10/04/23 04:45 MCH 31.4 pg (27-33) 10/04/23 04:45 MCHC 33.2 g/dL (30-55) 10/04/23 04:45 RDW 13.0 % (12.1-15.1) 10/04/23 04:45 Plt Count 154 10^3/cmm (157-399) L 10/04/23 04:45 MPV 12.1 fL (7.4-10.4) H 10/04/23 04:45 Neut % (Auto) 64.5 % 10/04/23 04:45 Lymph % (Auto) 25.0 % 10/04/23 04:45 [place] % (Auto) 8.3 % 10/04/23 04:45 Eos % (Auto) 0.7 % 10/04/23 04:45 Baso % (Auto) 0.5 % 10/04/23 04:45 Neut # (Auto) 3.72 10^3/uL (1.8-7.7) 10/04/23 04:45 Lymph # (Auto) 1.4 10^3/uL (0.8-4.8) 10/04/23 04:45 [place] # (Auto) 0.5 10^3/uL (0.2-0.9) 10/04/23 04:45 Eos # (Auto) 0.0 10^3/uL (0.0-0.8) 10/04/23 04:45 Baso # (Auto) 0.0 10^3/uL (0.0-0.1) 10/04/23 04:45 Nucleated RBC % (auto) 0 % 10/04/23 04:45 Nucleated RBCs # 0.0 /100WBC 10/04/23 04:45 PT 14.00 SECONDS (12.1-14.9) 10/02/23 18:24 INR 1.05 (0.8-1.2) 10/02/23 18:24 Sodium 146 mmol/L (136-145) H 10/04/23 04:45 Potassium 3.1 mmol/L (3.5-5.1) L 10/04/23 04:45 Chloride 112 mmol/L (98-107) H 10/04/23 04:45 Carbon Dioxide 20 mmol/L (22-29) L 10/04/23 04:45 Anion Gap 17.1 (5-19) 10/04/23 04:45 BUN 17 mg/dL (8-23) 10/04/23 04:45 Creatinine 0.5 mg/dL (0.5-0.9) 10/04/23 04:45 GFR Calculation 125.4 mL/min (90-130) 10/04/23 04:45 Glucose 86 mg/dL (65-115) 10/04/23 04:45 POC Glucose 109 mg/dL (70-110) 10/02/23 18:15 Calculated Osmolality 303 mOsm/kg (285-295) H 10/04/23 04:45 Calcium 9.0 mg/dL (8.5-10.5) 10/04/23 04:45 Magnesium 1.9 mg/dL (1.7-2.3) 10/03/23 00:44 Total Bilirubin 0.5 mg/dL (0.15-1.2) 10/04/23 04:45 AST 47 U/L (0-32) H 10/04/23 04:45 ALT 47 U/L (0-33) H 10/04/23 04:45 Alkaline Phosphatase 104 U/L (35-105) 10/04/23 04:45 Ammonia 25 umol/L (11-51) 10/02/23 18:24 Troponin T Baseline 19 ng/L (0-10) H 10/02/23 18:24 Troponin T 120 Minute 19.09 ng/L (0-10) H 10/02/23 20:28 Delta Troponin T 0.09 ABS# (0-10) 10/02/23 20:28 Troponin T Hi Sens 6Hr 23.82 ng/L (0-10) H 10/03/23 00:41 Troponin T Hi Sens 6Hr Delta 4.82 ng/L (0-12) 10/03/23 00:41 Total Protein 6.6 g/dL (6.6-8.7) 10/04/23 04:45 Albumin 4.1 g/dL (3.5-5.2) 10/04/23 04:45 Globulin 2.5 g/dL (1.3-4.6) 10/04/23 04:45 Lipase 37 U/L (13-60) 10/02/23 18:24 TSH 1.82 uIU/mL (0.27-4.20) 10/02/23 21:52 Urine Color Yellow (Yellow) 10/02/23 19:56 Urine Appearance Sl hazy (CLEAR) A 10/02/23 19:56 Urine pH 5 (5-7) 10/02/23 19:56 Ur Specific [place] 1.020 (1.005-1.030) 10/02/23 19:56 Urine Protein 1+ (Negative) H 10/02/23 19:56 Urine Glucose (UA) Norm (Normal) 10/02/23 19:56 Urine Ketones 1+ (Negative) H 10/02/23 19:56 Urine Blood Neg (Negative) 10/02/23 19:56 Urine Nitrate Positive (Negative) H 10/02/23 19:56 Urine Bilirubin Neg (Negative) 10/02/23 19:56 Urine Urobilinogen Norm mg/dL (Negative) 10/02/23 19:56 Ur Leukocyte Esterase 1+ (Negative) H 10/02/23 19:56 Urine RBC 0-4 /hpf (0-2) H 10/02/23 19:56 Urine WBC 40-55 /hpf (0-5) H 10/02/23 19:56 Ur Squamous Epith Cells 0-4 /hpf (0-5) H 10/02/23 19:56 Amorphous Sediment Not Reportable 10/02/23 19:56 Urine Bacteria 2+ /hpf (NONE) H 10/02/23 19:56 Urine Mucus 2+ /hpf 10/02/23 19:56 Urine Opiates Screen Negative ng/mL (Negative) 10/02/23 19:56 Ur Barbiturates Screen Negative ng/mL (Negative) 10/02/23 19:56 Valproic Acid 2.8 ug/mL (50-100) L 10/02/23 22:58 Ur Phencyclidine Scrn Negative ng/mL (Negative) 10/02/23 19:56 Ur Amphetamines Screen Negative ng/mL (Negative) 10/02/23 19:56 U Benzodiazepines Scrn Negative ng/mL (Negative) 10/02/23 19:56 Urine Cocaine Screen Negative ng/mL (Negative) 10/02/23 19:56 U Marijuana (THC) Screen Positive ng/mL (Negative) H 10/02/23 19:56 Ethyl Alcohol < 10 mg/dL (0-10) 10/02/23 18:24 Adenovirus (PCR) Not detected (NOT DETECT) 10/02/23 23:20 C. pneumoniae DNA (PCR) Not detected (NOT DETECT) 10/02/23 23:20 Coronavirus 229E (PCR) Not detected (NOT DETECT) 10/02/23 23:20 Hepatitis A IgM Ab Non-reactive (Nonreactive) 10/02/23 21:52 Hep Bs Antigen Non-reactive (Nonreactive) 10/02/23 21:52 Hep B Core IgM Ab Non-reactive (Nonreactive) 10/02/23 21:52 Hepatitis C Antibody Non-reactive (Nonreactive) 10/02/23 21:52 Human Metapneumovir PCR Not detected (NOT DETECT) 10/02/23 23:20 Influenza A (H1) PCR Not detected (NOT DETECT) 10/02/23 23:20 Influ A (H1/09) PCR Not detected (NOT DETECT) 10/02/23 23:20 Influenza A (H3) PCR Not detected (NOT DETECT) 10/02/23 23:20 Influenza Type A (PCR) Not detected (NOT DETECT) 10/02/23 23:20 Influenza Type B (PCR) Not detected (NOT DETECT) 10/02/23 23:20 M. pneumoniae (PCR) Not detected (NOT DETECT) 10/02/23 23:20 Parainfluenza 1 (PCR) Not detected (NOT DETECT) 10/02/23 23:20 Parainfluenza 2 (PCR) Not detected (NOT DETECT) 10/02/23 23:20 Parainfluenza 3 (PCR) Not detected (NOT DETECT) 10/02/23 23:20 Parainfluenza 4 (PCR) Not detected (NOT DETECT) 10/02/23 23:20 RSV Type A (PCR) Not detected (NOT DETECT) 10/02/23 23:20 RSV Type B (PCR) Not detected (NOT DETECT) 10/02/23 23:20 Entero/Rhino (PCR) Not detected (NOT DETECT) 10/02/23 23:20 SARS-CoV-2 (PCR) Not detected (NOT DETECT) 10/02/23 23:20 Vitals Last Vital Signs Temp 98.1 F 10/04/23 08:00 Pulse 53 L 10/04/23 08:00 Resp 18 10/04/23 08:00 BP 165/89 10/04/23 08:00 Pulse Ox 94 10/04/23 08:00 O2 Del Method Room Air 10/04/23 04:00 Discharge Plan Discharge Patient Disposition: Home Condition: Stable Prescriptions: New Lyrica 50 mg Capsule 100 mg PO TID Qty: 180 0RF divalproex 500 mg Tablet Extended Release 24 Hr 500 mg PO BID Qty: 60 0RF cefdinir 300 mg capsule 300 mg PO BID 7 Days Qty: 14 0RF Continued acetaminophen [Tylenol] 325 mg tablet 325 mg PO QID PRN (Reason: Pain) multivitamin Tablet 1 tab PO DAILY biotin 5 mg capsule 5 mg PO DAILY lysine 1,000 mg tablet 1,000 mg PO DAILY magnesium 200 mg tablet 200 mg PO DAILY cholecalciferol (vitamin D3) [Vitamin D3] 10 mcg (400 unit) capsule 10 mcg PO DAILY Discontinued pregabalin [Lyrica] 200 mg capsule 200 mg PO TID Discharge Orders: Discharge Order (Routine); Ordered 10/04/23 Ordered By: Guy Martines Referrals: [facility] (Behavioral Health) [Other] (In order to get an appointment with a counselor, YOU will need to call and set up appointment.) Daniel Barnes MD [Physician] - 2 weeks (History of seizure disorder) Sia Aguilar [Primary Care Provider] - 4-7 days Discharge Diet: Regular Discharge Activity: Increase activity as tolerated Patient Instructions: Opioid Safety Activity Restrictions/Additional Instructions: Take all medicine as prescribed Referral to behavioral health Will go ahead and refer to neurology as well secondary to past history of seizure disorder. Take all medicine as prescribed Return for any concerns Discharge Attestations Time Spent in Discharge Care*: greater than 30 min Quality Metrics Clinical Quality Measures [ No reported AMI, CVA or VTE this stay] Coding Level of Care Code 60915 Total time (in minutes) for Discharge: 35 Diagnoses Acute encephalopathy G93.40 UTI (urinary tract infection) N39.0 Altered mental status R41.82
[2023-10-04 12:00] VITALS: BP 129/63; PULSE 79; RESP 16; TEMP 36.8; O2SAT 92
[2023-10-04 13:10] VITALS: BP 129/63; PULSE 79; RESP 16; TEMP 36.8; O2SAT 92
== END 2023-10-04 13:00 | disposition home or self-care (01) | DRG 689 ==
LOC: ER 21:12 → MEDSURG 22:37
PROVIDERS: Admitting Provider Internal Medicine; Emergency Provider Emergency Medicine; PCP Nurse Practitioner Family; Visit Provider Internal Medicine
DX: N39.0 Urinary tract infection, site not specified (principal); G93.41 Metabolic encephalopathy; R00.1 Bradycardia, unspecified; E87.6 Hypokalemia; A08.4 Viral intestinal infection, unspecified; F44.89 Other dissociative and conversion disorders; F12.90 Cannabis use, unspecified, uncomplicated; I10 Essential (primary) hypertension; Z87.891 Personal history of nicotine dependence; G40.909 Epilepsy, unspecified, not intractable, without status epilepticus; B00.1 Herpesviral vesicular dermatitis; Z79.2 Long term (current) use of antibiotics
CPT/HCPCS: 36415; 36416; 70450; 71045; 80053; 80074; 80164; 80306; 80307; 81001; 82140; 82274; 82962; 83630; 83690; 83735; 84443; 84484; 85025; 85610; 87077; 87086; 87186; 87486; 87581; 87633; 93005; 93880; 96365; 96372; 97116; 97161; 99285; G0378; J0133; J0696; J1644; J2060; J3480; J3490; J7030; J7120

== ENCOUNTER → 2023-11-06 13:03 | Outpatient (BNVA) | payer MEDICARE, SELFPAY | PROVIDERS: PCP Nurse Practitioner Family; Visit Provider Orthopaedic Surgery | DX: M54.9 Dorsalgia, unspecified (principal); M43.16 Spondylolisthesis, lumbar region | CPT/HCPCS: 72110; 99204 ==

== ENCOUNTER 2023-12-16 10:29 | Emergency (ER) | payer MEDICARE, SELFPAY ==
[2023-12-16 10:52] VITALS: BP 132/97; PULSE 101; TEMP 36.7; O2SAT 96; BMI 30.2
--- NOTE | 2023-12-16 11:06 | ED_ITS ---
HPI - Back Pain/Injury General: Chief Complaint: Back Pain/Injury Stated Complaint: back pain Time Seen by Provider: 12/16/23 11:01 Source: patient Mode of arrival: ambulatory Limitations: no limitations History of Present Illness: 63-year-old female has a history of home companion abdirahman back pain she had 2 back surgeries in the past she states in 2007 2010. States she has been having increasing pain for months she states she is following with Dr. Rae currently she states she is post to get MRIs she was scheduled for 1 but had a panic attack they rescheduled it. States she had some increasing pain midline that radiates down both her legs she is ambulatory here no bowel or bladder incontinence rates her pain a 6 out of 10 Associated symptoms: Deny abdominal pain, chills, fever(s), nausea or vomiting Review of Systems Const: Denies: fever(s), chills, body aches or change in appetite ENMT: Denies: throat pain or dental pain Card: Denies: chest pain Resp: Denies: dyspnea GI: Denies: abdominal pain, nausea, vomiting or diarrhea Musc: Reports: back pain; Denies: neck pain Skin/Breast: Denies: rash Neuro: Denies: headache(s) PFSH ED PFSH: Medical History Epilepsy HTN (hypertension) Recurrent herpes labialis Surgical History H/O tubal ligation H/O rotator cuff surgery left H/O section x1 S/P tonsillectomy H/O: hysterectomy H/O left wrist surgery H/O carpal tunnel repair right hand H/O breast surgery left breast cysts removed Previous back surgery x2 Family History Family/Other Diabetes maternal and paternal aunt and uncle Hyperlipidemia maternal aunt and uncle Hypertension maternal and paternal side Stroke paternal aunt Denies family history of Colon cancer Ovarian cancer Clotting disorder Heart disease Breast cancer Anesthesia complication Bleeding disorder Uterine cancer Thyroid disease Social History Smoking and tobacco/nicotine status: former use of tobacco/nicotine Quit status (tobacco/nicotine): has quit using Former quit date comment: quit in 2012, smoked x 30 years Physical Exam Const: COMMON NORMALS: no acute distress, patient oriented x3 and healthy appearing HENMT: COMMON NORMALS: normocephalic and atraumatic HEAD & SCALP: normocephalic and atraumatic Eye: COMMON NORMALS: conjunctivae normal CONJUNCTIVA: Yes conjunctivae normal Neck/C-Spine: COMMON NORMALS: supple Chest: COMMONS NORMALS: normal inspection of the chest Resp: COMMON NORMALS: normal respiratory effort Cardio: COMMON NORMALS: regular rate RATE: regular rate Back/Pelvis: OTHER: Slight tenderness over the lower back no saddle anesthesia patient is ambulatory in the room Extremity: COMMON NORMALS: normal to inspection and full ROM Neuro: COMMON NORMALS: patient oriented x3, moves all extremities and no focal motor deficits Psych: COMMON NORMALS: mental status grossly normal, Normal thought process present and cooperative THOUGHT PROCESS: Normal thought process present Skin: COMMON NORMALS: no rashes or lesions noted and no wounds GENERAL SKIN EXAM: no rashes or lesions noted Course Vital Signs: Vital signs: Vital Signs Temperature 98.1 F 12/16/23 10:52 Pulse Rate 101 H 12/16/23 10:52 Blood Pressure 132/97 12/16/23 10:52 Pulse Oximetry 96 12/16/23 10:52 Oxygen Delivery Me thod Room Air 12/16/23 10:52 MDM - Back Pain/Injury Medical Decision Making Patient presents with back pain is chronic in nature did give her Decadron here along with Robaxin and Toradol we will prescribe her Naprosyn Robaxin and prednisone she is to follow-up with Dr. Rae she is return if worsening she understands agrees to plan Medical Records I reviewed the patient's medical records. All radiology interpretation(s) finalized by discharge Discharge Plan Discharge Patient Disposition: Home Clinical Impression: Low back pain Qualifiers: Chronicity: chronic Back pain laterality: bilateral Condition: Stable Prescriptions: New methocarbamol 750 mg tablet 750 mg PO Q6H PRN (Reason: spasms) Qty: 20 0RF prednisone 50 mg tablet 50 mg PO DAILY Qty: 5 0RF Naprosyn 500 mg tablet 500 mg PO BID PRN (Reason: pain) Qty: 20 0RF No Action acetaminophen [Tylenol] 325 mg tablet 325 mg PO QID PRN (Reason: Pain) multivitamin Tablet 1 tab PO DAILY biotin 5 mg capsule 5 mg PO DAILY lysine 1,000 mg tablet 1,000 mg PO DAILY magnesium 200 mg tablet 200 mg PO DAILY cholecalciferol (vitamin D3) [Vitamin D3] 10 mcg (400 unit) capsule 10 mcg PO DAILY diazepam [Valium] 5 mg tablet 5 mg PO BID PRN (Reason: anxiety) Qty: 2 0RF Rx Instructions: 1 tab one hour before procedure, one tab at time of procedure. For anxiety during MRI divalproex 500 mg Tablet Extended Release 24 Hr 500 mg PO BID Qty: 60 0RF Lyrica 50 mg Capsule 100 mg PO TID Qty: 180 0RF Discharge Orders: Discharge ED (Routine); Ordered 12/16/23 Ordered By: Jim Boles Referrals: Sia Aguilar [Primary Care Provider] - Discharge Diet: Advance as tolerated Discharge Activity: Resume usual activity Patient Instructions: Acute Low Back Pain (ED), Back Pain (ED) Coding Level of Care Code ED Esthetician/Skin Therapist for Lobo Michel
[2023-12-16] MEDS: HYDROcodone-acetaminophen 5-325 mg Tablet 1 TAB PO (11:15)
[2023-12-16] MEDS: methocarbamol 750 mg Tablet 1500 MG PO (11:15)
[2023-12-16] MEDS: ketorolac 30 mg/mL INJ IM (11:16)
[2023-12-16] MEDS: dexamethasone 10 mg/mL INJ IM (11:16)
[2023-12-16 11:22] VITALS: BP 134/95; PULSE 98; RESP 16; TEMP 36.7; O2SAT 97
== END 2023-12-16 11:23 | disposition home or self-care (01) ==
PROVIDERS: Emergency Provider Emergency Medicine; PCP Nurse Practitioner Family
DX: G89.29 Other chronic pain (principal); M54.50 Low back pain, unspecified; Z87.891 Personal history of nicotine dependence; I10 Essential (primary) hypertension
CPT/HCPCS: 96372; 99284; J1100; J1885

== ENCOUNTER 2023-12-22 19:41 | Emergency (ER) | payer MEDICARE, SELFPAY ==
[2023-12-22 20:23] VITALS: BP 144/78; PULSE 106; RESP 16; TEMP 36.6; O2SAT 97; BMI 31.1
--- NOTE | 2023-12-22 20:37 | ED_ITS ---
HPI - Dental/Oral General: Chief complaint: Dental/Oral Stated complaint: dental pain Time Seen by Provider: 12/22/23 20:28 History of Present Illness: Patient had a tooth pulled a few days back. She has had worsening pain and swelling. She is concerned she might have dry socket. She has not been in contact with her dentist today. No fevers. Review of Systems Narrative: Constitutional symptoms: Negative except as documented in HPI. Skin symptoms: Negative except as documented in HPI. Eye symptoms: Negative except as documented in HPI. ENMT symptoms: Negative except as documented in HPI. Respiratory symptoms: Negative except as documented in HPI. Cardiovascular symptoms: Negative except as documented in HPI. Gastrointestinal symptoms: Negative except as documented in HPI. Genitourinary symptoms: Negative except as documented in HPI. Musculoskeletal symptoms: Negative except as documented in HPI. Neurologic symptoms: Negative except as documented in HPI. Psychiatric symptoms: Negative except as documented in HPI. Endocrine symptoms: Negative except as documented in HPI. [facility] ED PFSH: Medical History Epilepsy HTN (hypertension) Recurrent herpes labialis Surgical History H/O tubal ligation H/O rotator cuff surgery left H/O section x1 S/P tonsillectomy H/O: hysterectomy H/O left wrist surgery H/O carpal tunnel repair right hand H/O breast surgery left breast cysts removed Previous back surgery x2 Family History Family/Other Diabetes maternal and paternal aunt and uncle Hyperlipidemia maternal aunt and uncle Hypertension maternal and paternal side Stroke paternal aunt Denies family history of Colon cancer Ovarian cancer Clotting disorder Heart disease Breast cancer Anesthesia complication Bleeding disorder Uterine cancer Thyroid disease Social History Smoking and tobacco/nicotine status: former use of tobacco/nicotine Quit status (tobacco/nicotine): has quit using Former quit date comment: quit in 2012, smoked x 30 years Physical Exam Narrative: EXAM NARRATIVE: General: Alert, no acute distress. Skin: warm and dry Head: Normocephalic Neck: Trachea midline Eye: Extraocular movements are intact. Ears, nose, mouth and throat: Oral mucosa moist Respiratory: Respirations are non-labored Musculoskeletal: Normal ROM Neurological: Alert and oriented, No focal neurological deficit observed. Psychiatric: Cooperative, appropriate mood & affect. Course Vital Signs: Vital signs: Vital Signs Temperature 97.9 F 12/22/23 20:23 Pulse Rate 106 H 12/22/23 20:23 Respiratory Rate 16 12/22/23 20:23 Blood Pressure 144/78 12/22/23 20:23 Pulse Oximetry 97 12/22/23 20:23 Oxygen Delivery Me thod Room Air 12/22/23 20:23 MDM - Dental/Oral Medical Decision Making Covering patient with antibiotics and some pain medicine. These were called in. Gave her first dose here. Assessment and plan: Dental infection versus dry socket. - Discharged home - Discussed plan with patient. Answered any questions. - Evaluation and treatment of this problem were appropriate in the emergency setting. No radiology studies performed this visit Discharge Plan Discharge Patient Disposition: Home Clinical Impression: Dental infection, Pain, dental Condition: Stable Prescriptions: New hydrocodone-acetaminophen 5-325 mg tablet 1 tab PO Q6H PRN (Reason: pain) Qty: 20 0RF Miralax 17 gram/dose powder 17 g PO DAILY Qty: 510 0RF Rx Instructions: Take 1 scoop daily while taking pain medications. amoxicillin-pot clavulanate 875-125 mg tablet 1 tab PO BID 10 Days Qty: 20 0RF No Action acetaminophen [Tylenol] 325 mg tablet 325 mg PO QID PRN (Reason: Pain) multivitamin Tablet 1 tab PO DAILY biotin 5 mg capsule 5 mg PO DAILY lysine 1,000 mg tablet 1,000 mg PO DAILY magnesium 200 mg tablet 200 mg PO DAILY cholecalciferol (vitamin D3) [Vitamin D3] 10 mcg (400 unit) capsule 10 mcg PO DAILY diazepam [Valium] 5 mg tablet 5 mg PO BID PRN (Reason: anxiety) Qty: 2 0RF Rx Instructions: 1 tab one hour before procedure, one tab at time of procedure. For anxiety during MRI methocarbamol 750 mg tablet 750 mg PO Q6H PRN (Reason: spasms) Qty: 20 0RF prednisone 50 mg tablet 50 mg PO DAILY Qty: 5 0RF Naprosyn 500 mg tablet 500 mg PO BID PRN (Reason: pain) Qty: 20 0RF divalproex 500 mg Tablet Extended Release 24 Hr 500 mg PO BID Qty: 60 0RF Lyrica 50 mg Capsule 100 mg PO TID Qty: 180 0RF Discharge Orders: Discharge ED (Routine); Ordered 12/22/23 Ordered By: Marah Thomson Referrals: Sia Aguilar [Primary Care Provider] - 4-7 days Discharge Diet: Advance as tolerated Patient Instructions: Dental Abscess (ED), Dry Socket (ED), Pain Management Activity Restrictions/Additional Instructions: Please follow-up with your dentist as soon as possible. Thank you for choosing [facility] for your healthcare needs today. Please realize this is an emergency room and that we are providing you with a medical screening exam and this may not be complete and all inclusive of all the testing and or work up that you may need to determine your ailment or severity of your illness. You have been screened and evaluated and felt safe for discharge. Health conditions do change or evolve sometimes and as such it is important that you follow up with your Primary Doctor to be re checked, 3-5 days is a general good time frame for follow up. You are always welcome to return to the ED for re assessment if your symptoms are worsening or you have new concerns Coding Level of Care Code ED Applications Processor for Lobo Michel
[2023-12-22 20:46] VITALS: BP 138/79; PULSE 96; RESP 16; TEMP 36.6; O2SAT 98
[2023-12-22] MEDS: HYDROcodone-acetaminophen 10-325 mg Tablet 1 TAB PO (20:46)
[2023-12-22] MEDS: clindamycin 150 mg Capsule 600 MG PO (20:46)
== END 2023-12-22 20:47 | disposition home or self-care (01) ==
PROVIDERS: Emergency Provider Emergency Medicine; PCP Nurse Practitioner Family
DX: K08.89 Other specified disorders of teeth and supporting structures (principal); K04.7 Periapical abscess without sinus
CPT/HCPCS: 99283

== ENCOUNTER 2024-02-10 15:20 | Emergency (ER) | payer MEDICARE, SELFPAY ==
[2024-02-10 15:25] VITALS: BP 156/86; PULSE 71; RESP 16; TEMP 37.1; O2SAT 95; BMI 28.3
[2024-02-10 16:09] LABS: Basophils % 0.6 %; Hematocrit 45.7 % (36-47); Lymphocytes # 1.3 10^3/uL (0.8-4.8); Lymphocytes % 23.1 %; Mean Corpuscular HGB Conc 34.1 g/dL (30-55); Mean Corpuscular Volume 93.8 fl (85-98); Mean Platelet Volume 11.9 fL (7.4-10.4); Monocytes # 0.4 10^3/uL (0.2-0.9); Monocytes % 7.2 %; Neutrophils # 3.69 10^3/uL (1.8-7.7); Neutrophils % 68.4 %; Nucleated Red Blood Cells % 0 %; Platelet Count 192 10^3/cmm (157-399); Red Blood Count 4.87 10^6/uL (3.85-5.65); Red Cell Distribution Width 13.8 % (12.1-15.1)
[2024-02-10 16:30] LABS: Alanine Aminotransferase 23 U/L (0-33); Albumin Level 4.8 g/dL (3.5-5.2); Alkaline Phosphatase 122 U/L (35-105); Aspartate Amino Transferase 24 U/L (0-32); Blood Urea Nitrogen 41 mg/dL (8-23); Calcium 10.2 mg/dL (8.5-10.5); Carbon Dioxide 20 mmol/L (22-29); Chloride 106 mmol/L (98-107); Creatinine Clr Calc Pharmacy 104.2608; Globulin 3.3 g/dL (1.3-4.6); Glomerular Filtration Rate 125.4 mL/min (90-130); Glucose 99 mg/dL (65-115); Lipase 32 U/L (13-60); Osmolality Calculated 306 mOsm/kg (285-295); Sodium 143 mmol/L (136-145); Total Bilirubin 0.6 mg/dL (0.15-1.2); Total Protein 8.1 g/dL (6.6-8.7)
[2024-02-10 16:56] LABS: Anion Gap 20.3 (5-19); Potassium 3.3 mmol/L (3.5-5.1)
--- NOTE | 2024-02-10 17:23 | ED_ITS ---
Documented by User: Jim Boles MD 02/10/24 17:26 HPI - Nausea/Vomiting/Diarrhea 2 General: Chief complaint: Nausea/Vomiting/Diarrhea Stated complaint: loss of appetite, fever, diarrhea Time Seen by Provider: 02/10/24 17:17 Source: patient Mode of arrival: ambulatory Limitations: no limitations History of Present Illness: 63-year-old female who states that she h as had nausea vomiting over the last 3 days. Patient sudden changes had multiple episodes and feels like she may have been getting dehydrated. He states that when she gets ill especially has UTI she gets confused and has had some confusion over the last 2 days she is answering my questions she is able to tell me her name and answer some of my questions but is confused to the year. She has had some diffuse abdominal pain she states it is cramping in nature denies any headache denies any fever denies any chest pain Associated nausea: Yes Associated symtoms: Reports altered mental status and nausea; Denies chest pain or headache(s) Review of Systems 2 Const: Denies: fever(s), chills, body aches or change in appetite ENMT: Denies: throat pain or dental pain Card: Denies: chest pain Resp: Denies: dyspnea GI: Reports: abdominal pain, nausea, vomiting and diarrhea Musc: Denies: neck pain or back pain Skin/Breast: Denies: rash Neuro: Reports: confusion; Denies: headache(s) PFSH ED 2 PFSH: Medical History Epilepsy HTN (hypertension) Recurrent herpes labialis Surgical History H/O tubal ligation H/O rotator cuff surgery left H/O section x1 S/P tonsillectomy H/O: hysterectomy H/O left wrist surgery H/O carpal tunnel repair right hand H/O breast surgery left breast cysts removed Previous back surgery x2 Family History Family/Other Diabetes maternal and paternal aunt and uncle Hyperlipidemia maternal aunt and uncle Hypertension maternal and paternal side Stroke paternal aunt Denies family history of Colon cancer Ovarian cancer Clotting disorder Heart disease Breast cancer Anesthesia complication Bleeding disorder Uterine cancer Thyroid disease Social History Smoking and tobacco/nicotine status: former use of tobacco/nicotine Quit status (tobacco/nicotine): has quit using Former quit date comment: quit in 2012, smoked x 30 years Physical Exam 2 Const: COMMON NORMALS: alert; negative for patient oriented x3 EXAM LIMITATIONS: altered mental status O RIENTATION/CONSCIOUSNESS: Yes oriented to person and Yes oriented to place; not oriented to time HENMT: COMMON NORMALS: normocephalic and atraumatic HEAD & SCALP: n ormocephalic and atraumatic Eye: COMMON NORMALS: Equal, round and reactive pupils present and EOMs intact bilaterally PUPIL: Yes Equal, round and reactive pupils present Neck/C-Spine: COMMON NORMALS: full ROM and supple Chest: COMMONS NORMALS: normal inspection of the chest and normal palpation of entire chest wall Resp: COMMON NORMALS: normal respiratory effort, No retractions, No use of accessory muscles and clear to auscultation bilaterally AUSCULTATION: clear to auscultation bilaterally Cardio: COMMON NORMALS: regular rate, regular rhythm and No murmurs present (Cardio) RATE: regular rate RHYTHM: regular rhythm GI: COMMON NORMALS: Normal to inspection, nondistended, normoactive bowel sounds present, Soft to palpation, non-tender and no masses PALPATION: Yes Soft to palpation Extremity: COMMON NORMALS: normal to inspection and full ROM Neuro: COMMON NORMALS: moves all extremities and no focal motor deficits; negative for patient oriented x3 SENSORIUM/ORIENTATION: Yes alert, Yes oriented to person, Yes oriented to place and No oriented to time Psych: COMMON NORMALS: mental status grossly normal, Normal thought process present and cooperative THOUGHT PROCESS: Normal thought process present Skin: COMMON NORMALS: no rashes or lesions noted and no wounds GENERAL SKIN EXAM: no rashes or lesions noted Course 2 Vital Signs: Vital signs: Vital Signs Temperature 98.8 F 02/10/24 15:25 Pulse Rate 48 L 02/10/24 22:34 Respiratory Rate 16 02/10/24 22:34 Blood Pressure 168/80 02/10/24 22:34 Pulse Oximetry 98 02/10/24 22:34 Oxygen Delivery Me thod Room Air 02/10/24 17:31 MDM - Nausea/Vomiting/Diarrhea Lab Data 02/10/24 15:37 02/10/24 15:37 Radiology Impressions Abdomen/Pelvis CT 02/10/24 17:37 IMPRESSION: 1. Mucosal thickening of the descending and rectosigmoid colon consistent with nonspecific colitis. 2. Cardiomegaly. Head CT 02/10/24 17:37 IMPRESSION: 1. No acute intracranial abnormality. Laboratory Results WBC 5.40 10^3/uL (3.29-11.43) 02/10/24 15:37 RBC 4.87 10^6/uL (3.85-5.65) 02/10/24 15:37 Hgb 15.60 g/dL (11.27-16.99) 02/10/24 15:37 Hct 45.7 % (36-47) 02/10/24 15:37 MCV 93.8 fl (85-98) 02/10/24 15:37 MCH 32.0 pg (27-33) 02/10/24 15:37 MCHC 34.1 g/dL (30-55) 02/10/24 15:37 RDW 13.8 % (12.1-15.1) 02/10/24 15:37 Plt Count 192 10^3/cmm (157-399) 02/10/24 15:37 MPV 11.9 fL (7.4-10.4) H 02/10/24 15:37 Neut % (Auto) 68.4 % 02/10/24 15:37 Lymph % (Auto) 23.1 % 02/10/24 15:37 Lawrence % (Auto) 7.2 % 02/10/24 15:37 Eos % (Auto) 0.0 % 02/10/24 15:37 Baso % (Auto) 0.6 % 02/10/24 15:37 Neut # (Auto) 3.69 10^3/uL (1.8-7.7) 02/10/24 15:37 Lymph # (Auto) 1.3 10^3/uL (0.8-4.8) 02/10/24 15:37 Lawrence # (Auto) 0.4 10^3/uL (0.2-0.9) 02/10/24 15:37 Eos # (Auto) 0.0 10^3/uL (0.0-0.8) 02/10/24 15:37 Baso # (Auto) 0.0 10^3/uL (0.0-0.1) 02/10/24 15:37 Nucleated RBC % (auto) 0 % 02/10/24 15:37 Nucleated RBCs # 0.0 /100WBC 02/10/24 15:37 Sodium 143 mmol/L (136-145) 02/10/24 15:37 Potassium 3.3 mmol/L (3.5-5.1) L 02/10/24 15:37 Chloride 106 mmol/L (98-107) 02/10/24 15:37 Carbon Dioxide 20 mmol/L (22-29) L 02/10/24 15:37 Anion Gap 20.3 (5-19) H 02/10/24 15:37 BUN 41 mg/dL (8-23) H 02/10/24 15:37 Creatinine 0.5 mg/dL (0.5-0.9) 02/10/24 15:37 GFR Calculation 125.4 mL/min (90-130) 02/10/24 15:37 Glucose 99 mg/dL (65-115) 02/10/24 15:37 Calculated Osmolality 306 mOsm/kg (285-295) H 02/10/24 15:37 Calcium 10.2 mg/dL (8.5-10.5) 02/10/24 15:37 Total Bilirubin 0.6 mg/dL (0.15-1.2) 02/10/24 15:37 AST 24 U/L (0-32) 02/10/24 15:37 ALT 23 U/L (0-33) 02/10/24 15:37 Alkaline Phosphatase 122 U/L (35-105) H 02/10/24 15:37 Total Protein 8.1 g/dL (6.6-8.7) 02/10/24 15:37 Albumin 4.8 g/dL (3.5-5.2) 02/10/24 15:37 Globulin 3.3 g/dL (1.3-4.6) 02/10/24 15:37 Lipase 32 U/L (13-60) 02/10/24 15:37 Urine Color Yellow (Yellow) 02/10/24 20:44 Urine Appearance Cloudy (CLEAR) A 02/10/24 20:44 Urine pH 5 (5-7) 02/10/24 20:44 Ur Specific [place] 1.015 (1.005-1.030) 02/10/24 20:44 Urine Protein 1+ (Negative) H 02/10/24 20:44 Urine Glucose (UA) Norm (Normal) 02/10/24 20:44 Urine Ketones 1+ (Negative) H 02/10/24 20:44 Urine Blood 2+ (Negative) H 02/10/24 20:44 Urine Nitrate Positive (Negative) A 02/10/24 20:44 Urine Bilirubin 1+ (Negative) H 02/10/24 20:44 Urine Urobilinogen 1 mg/dL (Negative) H 02/10/24 20:44 Ur Leukocyte Esterase 2+ (Negative) H 02/10/24 20:44 Urine RBC 5-10 /hpf (0-2) H 02/10/24 20:44 Urine WBC 15-25 /hpf (0-5) H 02/10/24 20:44 Ur Squamous Epith Cells 0-4 /hpf (0-5) H 02/10/24 20:44 Amorphous Sediment Not Reportable 02/10/24 20:44 Urine Bacteria 3+ /hpf (NONE) H 02/10/24 20:44 Urine Mucus 1+ /hpf 02/10/24 20:44 Valproic Acid 4.9 ug/mL (50-100) L 02/10/24 15:37 Discharge Plan Discharge Patient Disposition: Home Clinical Impression: UTI (urinary tract infection) Condition: Stable Prescriptions: New cefdinir 300 mg capsule 300 mg PO BID Qty: 14 0RF No Action acetaminophen [Tylenol] 325 mg tablet 325 mg PO QID PRN (Reason: Pain) multivitamin Tablet 1 tab PO DAILY biotin 5 mg capsule 5 mg PO DAILY lysine 1,000 mg tablet 1,000 mg PO DAILY magnesium 200 mg tablet 200 mg PO DAILY cholecalciferol (vitamin D3) [Vitamin D3] 10 mcg (400 unit) capsule 10 mcg PO DAILY diazepam [Valium] 5 mg tablet 5 mg PO BID PRN (Reason: anxiety) Qty: 2 0RF Rx Instructions: 1 tab one hour before procedure, one tab at time of procedure. For anxiety during MRI methocarbamol 750 mg tablet 750 mg PO Q6H PRN (Reason: spasms) Qty: 20 0RF prednisone 50 mg tablet 50 mg PO DAILY Qty: 5 0RF Naprosyn 500 mg tablet 500 mg PO BID PRN (Reason: pain) Qty: 20 0RF hydrocodone-acetaminophen 5-325 mg tablet 1 tab PO Q6H PRN (Reason: pain) Qty: 20 0RF Miralax 17 gram/dose powder 17 g PO DAILY Qty: 510 0RF Rx Instructions: Take 1 scoop daily while taking pain medications. divalproex 500 mg Tablet Extended Release 24 Hr 500 mg PO BID Qty: 60 0RF Lyrica 50 mg Capsule 100 mg PO TID Qty: 180 0RF Discharge Orders: Discharge ED (Routine); Ordered 02/10/24 Ordered By: Jimi Patel Referrals: Sia Aguilar [Primary Care Provider] - 1-3 days Patient Instructions: Urinary Tract Infection in Older Adults (ED), Opioid Safety, Pain Management Activity Restrictions/Additional Instructions: Make sure you are staying hydrated with plenty of clear liquids. Antibiotics as directed. Return for fever despite 2-3 more doses of antibiotics, worsening mental status, weakness, other concerning symptoms. Coding Level of Care Code ED Ice Scraper for Chg Fwd Documented by User: Jimi Patel, 02/11/24 00:22 HPI - Nausea/Vomiting/Diarrhea 2 General: Chief complaint: Nausea/Vomiting/Diarrhea Stated complaint: loss of appetite, fever, diarrhea Time Seen by Provider: 02/10/24 17:17 [facility] ED 2 PFSH: Medical History Epilepsy HTN (hypertension) Recurrent herpes labialis Surgical History H/O tubal ligation H/O rotator cuff surgery left H/O section x1 S/P tonsillectomy H/O: hysterectomy H/O left wrist surgery H/O carpal tunnel repair right hand H/O breast surgery left breast cysts removed Previous back surgery x2 Family History Family/Other Diabetes maternal and paternal aunt and uncle Hyperlipidemia maternal aunt and uncle Hypertension maternal and paternal side Stroke paternal aunt Denies family history of Colon cancer Ovarian cancer Clotting disorder Heart disease Breast cancer Anesthesia complication Bleeding disorder Uterine cancer Thyroid disease Social History Smoking and tobacco/nicotine status: former use of tobacco/nicotine Quit status (tobacco/nicotine): has quit using Former quit date comment: quit in 2012, smoked x 30 years Course 2 Vital Signs: Vital signs: Vital Signs Temperature 98.8 F 02/10/24 15:25 Pulse Rate 48 L 02/10/24 22:34 Respiratory Rate 16 02/10/24 22:34 Blood Pressure 168/80 02/10/24 22:34 Pulse Oximetry 98 02/10/24 22:34 Oxygen Delivery Me thod Room Air 02/10/24 17:31 MDM - Nausea/Vomiting/Diarrhea Medical Decision Making 63-year-old female checked out at shift change. She has some mental status changes. She answers some questions appropriately. Actually, following 2 L fluid bolus, she is much more alert, and answers appropriately. She walks without significant assistance in the emergency department now. CBC is normal. BUN is 41, likely representing prerenal azotemia. She has a urinary tract infection. She is given Rocephin for this. CT shows some mild mucosal thickening of the descending colon. notes that she had some diarrhea couple of days ago but none since. She will be placed on cefdinir. With improvement in her symptoms, and laboratory findings above, she will be allowed home on cefdinir. To return for any worsening symptoms. Lab Data 02/10/24 15:37 02/10/24 15:37 Radiology Impressions Abdomen/Pelvis CT 02/10/24 17:37 IMPRESSION: 1. Mucosal thickening of the descending and rectosigmoid colon consistent with nonspecific colitis. 2. Cardiomegaly. Head CT 02/10/24 17:37 IMPRESSION: 1. No acute intracranial abnormality. Laboratory Results WBC 5.40 10^3/uL (3.29-11.43) 02/10/24 15:37 RBC 4.87 10^6/uL (3.85-5.65) 02/10/24 15:37 Hgb 15.60 g/dL (11.27-16.99) 02/10/24 15:37 Hct 45.7 % (36-47) 02/10/24 15:37 MCV 93.8 fl (85-98) 02/10/24 15:37 MCH 32.0 pg (27-33) 02/10/24 15:37 MCHC 34.1 g/dL (30-55) 02/10/24 15:37 RDW 13.8 % (12.1-15.1) 02/10/24 15:37 Plt Count 192 10^3/cmm (157-399) 02/10/24 15:37 MPV 11.9 fL (7.4-10.4) H 02/10/24 15:37 Neut % (Auto) 68.4 % 02/10/24 15:37 Lymph % (Auto) 23.1 % 02/10/24 15:37 [place] % (Auto) 7.2 % 02/10/24 15:37 Eos % (Auto) 0.0 % 02/10/24 15:37 Baso % (Auto) 0.6 % 02/10/24 15:37 Neut # (Auto) 3.69 10^3/uL (1.8-7.7) 02/10/24 15:37 Lymph # (Auto) 1.3 10^3/uL (0.8-4.8) 02/10/24 15:37 Lawrence # (Auto) 0.4 10^3/uL (0.2-0.9) 02/10/24 15:37 Eos # (Auto) 0.0 10^3/uL (0.0-0.8) 02/10/24 15:37 Baso # (Auto) 0.0 10^3/uL (0.0-0.1) 02/10/24 15:37 Nucleated RBC % (auto) 0 % 02/10/24 15:37 Nucleated RBCs # 0.0 /100WBC 02/10/24 15:37 Sodium 143 mmol/L (136-145) 02/10/24 15:37 Potassium 3.3 mmol/L (3.5-5.1) L 02/10/24 15:37 Chloride 106 mmol/L (98-107) 02/10/24 15:37 Carbon Dioxide 20 mmol/L (22-29) L 02/10/24 15:37 Anion Gap 20.3 (5-19) H 02/10/24 15:37 BUN 41 mg/dL (8-23) H 02/10/24 15:37 Creatinine 0.5 mg/dL (0.5-0.9) 02/10/24 15:37 GFR Calculation 125.4 mL/min (90-130) 02/10/24 15:37 Glucose 99 mg/dL (65-115) 02/10/24 15:37 Calculated Osmolality 306 mOsm/kg (285-295) H 02/10/24 15:37 Calcium 10.2 mg/dL (8.5-10.5) 02/10/24 15:37 Total Bilirubin 0.6 mg/dL (0.15-1.2) 02/10/24 15:37 AST 24 U/L (0-32) 02/10/24 15:37 ALT 23 U/L (0-33) 02/10/24 15:37 Alkaline Phosphatase 122 U/L (35-105) H 02/10/24 15:37 Total Protein 8.1 g/dL (6.6-8.7) 02/10/24 15:37 Albumin 4.8 g/dL (3.5-5.2) 02/10/24 15:37 Globulin 3.3 g/dL (1.3-4.6) 02/10/24 15:37 Lipase 32 U/L (13-60) 02/10/24 15:37 Urine Color Yellow (Yellow) 02/10/24 20:44 Urine Appearance Cloudy (CLEAR) A 02/10/24 20:44 Urine pH 5 (5-7) 02/10/24 20:44 Ur Specific [place] 1.015 (1.005-1.030) 02/10/24 20:44 Urine Protein 1+ (Negative) H 02/10/24 20:44 Urine Glucose (UA) Norm (Normal) 02/10/24 20:44 Urine Ketones 1+ (Negative) H 02/10/24 20:44 Urine Blood 2+ (Negative) H 02/10/24 20:44 Urine Nitrate Positive (Negative) A 07/07/24 20:44 Urine Bilirubin 1+ (Negative) H 02/10/24 20:44 Urine Urobilinogen 1 mg/dL (Negative) H 02/10/24 20:44 Ur Leukocyte Esterase 2+ (Negative) H 02/10/24 20:44 Urine RBC 5-10 /hpf (0-2) H 02/10/24 20:44 Urine WBC 15-25 /hpf (0-5) H 02/10/24 20:44 Ur Squamous Epith Cells 0-4 /hpf (0-5) H 02/10/24 20:44 Amorphous Sediment Not Reportable 02/10/24 20:44 Urine Bacteria 3+ /hpf (NONE) H 02/10/24 20:44 Urine Mucus 1+ /hpf 02/10/24 20:44 Valproic Acid 4.9 ug/mL (50-100) L 02/10/24 15:37 All radiology interpretation(s) finalized by discharge Discharge Plan Discharge Patient Disposition: Home Clinical Impression: UTI (urinary tract infection) Condition: Stable Prescriptions: New cefdinir 300 mg capsule 300 mg PO BID Qty: 14 0RF No Action acetaminophen [Tylenol] 325 mg tablet 325 mg PO QID PRN (Reason: Pain) multivitamin Tablet 1 tab PO DAILY biotin 5 mg capsule 5 mg PO DAILY lysine 1,000 mg tablet 1,000 mg PO DAILY magnesium 200 mg tablet 200 mg PO DAILY cholecalciferol (vitamin D3) [Vitamin D3] 10 mcg (400 unit) capsule 10 mcg PO DAILY diazepam [Valium] 5 mg tablet 5 mg PO BID PRN (Reason: anxiety) Qty: 2 0RF Rx Instructions: 1 tab one hour before procedure, one tab at time of procedure. For anxiety during MRI methocarbamol 750 mg tablet 750 mg PO Q6H PRN (Reason: spasms) Qty: 20 0RF prednisone 50 mg tablet 50 mg PO DAILY Qty: 5 0RF Naprosyn 500 mg tablet 500 mg PO BID PRN (Reason: pain) Qty: 20 0RF hydrocodone-acetaminophen 5-325 mg tablet 1 tab PO Q6H PRN (Reason: pain) Qty: 20 0RF Miralax 17 gram/dose powder 17 g PO DAILY Qty: 510 0RF Rx Instructions: Take 1 scoop daily while taking pain medications. divalproex 500 mg Tablet Extended Release 24 Hr 500 mg PO BID Qty: 60 0RF Lyrica 50 mg Capsule 100 mg PO TID Qty: 180 0RF Discharge Orders: Discharge ED (Routine); Ordered 02/10/24 Ordered By: Jimi Patel Referrals: Sia Aguilar [Primary Care Provider] - 1-3 days Patient Instructions: Urinary Tract Infection in Older Adults (ED), Opioid Safety, Pain Management Activity Restrictions/Additional Instructions: Make sure you are staying hydrated with plenty of clear liquids. Antibiotics as directed. Return for fever despite 2-3 more doses of antibiotics, worsening mental status, weakness, other concerning symptoms. Coding Level of Care Code ED Ice Scraper for Lobo Michel
[2024-02-10 17:31] VITALS: BP 177/92; PULSE 57; O2SAT 94
--- NOTE | 2024-02-10 17:37 | CTR_ITS ---
PROCEDURE INFORMATION: Exam: CT Abdomen And Pelvis With Contrast Exam date and time: 02/10/2024 6:17 PM Age: 63 years old Clinical indication: Fever and nausea and vomiting; Prior surgery; Surgery date: 6+ months; Surgery type: Hysterectomy. Lumbar fusion. Csection. Patient HX: N/v/d with fever TECHNIQUE: Imaging protocol: Computed tomography of the abdomen and pelvis with contrast. Radiation optimization: All CT scans at this facility use at least one of these dose optimization techniques: automated exposure control; mA and/or kV adjustment per patient size (includes targeted exams where dose is matched to clinical indication); or iterative reconstruction. Contrast material: OMNI 350; Contrast volume: 100 ml; Contrast route: INTRAVENOUS (IV); COMPARISON: US pelv w/transvag [id number] 03/07/2022 11:03 AM RADIATION DOSE METRICS: Total DLP (mGy-cm): 559.29 FINDINGS: Heart: Cardiomegaly. Liver: Normal. No mass. Gallbladder and biliary ducts: Normal. No calcified stones. No ductal dilation. Pancreas: Normal. No ductal dilation. Spleen: Normal. No splenomegaly. Adrenal glands: Normal. No mass. Kidneys and ureters: There are cysts with benign features in the kidneys the larger of which measures 11 mm in the right kidney. Follow-up is not necessary. Stomach and bowel: There is mucosal thickening of the descending and rectosigmoid colon. Multiple scattered large bowel diverticula with no gross evidence for diverticulitis. Appendix: No evidence of appendicitis. Intraperitoneal space: Unremarkable. No free air. No significant fluid collection. Vasculature: Unremarkable. No abdominal aortic aneurysm. Lymph nodes: Unremarkable. No enlarged lymph nodes. Urinary bladder: Unremarkable as visualized. Reproductive: The uterus is not visualized, consistent with hysterectomy. The uterus is not visualized, consistent with hysterectomy. Bones/joints: There are degenerative and postoperative changes in the lumbar spine. Grade 1 degenerative anterolisthesis of L4 on L5. Soft tissues: There are benign-appearing soft tissue calcifications. Other findings: Motion artifact does moderately limit the sensitivity of this examination. CT/CT abdomen pelvis w con* [id number] IMPRESSION: 1. Mucosal thickening of the descending and rectosigmoid colon consistent with nonspecific colitis. 2. Cardiomegaly.
--- NOTE | 2024-02-10 17:37 | ECG_ITS ---
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 Measurements Intervals [place] Rate: 78 P: 51 CA: 159 QRS: -24 QRSD: 101 T: -26 QT: 377 QTc: 431 Interpretive Statements SINUS RHYTHM WITH MARKED SINUS ARRHYTHMIA BORDERLINE LEFT AXIS DEVIATION [QRS AXIS < -20] LEFT VENTRICULAR HYPERTROPHY AND ST-T CHANGE [VOLTAGE CRITERIA PLUS ST/T ABNORMALITY] Compared to ECG 10/02/2023 18:28:17 ST (T wave) deviation now present Sinus bradycardia no longer present T-wave abnormality no longer present Possible ischemia no longer present Electronically Signed On 02-10-2024 19:18:40 CDT by Onel Carbone M.D. [id number]
--- NOTE | 2024-02-10 17:37 | CTR_ITS ---
PROCEDURE INFORMATION: Exam: CT Head Without Contrast Exam date and time: 02/10/2024 6:13 PM Age: 63 years old Clinical indication: Altered mental status/memory loss; Patient HX: Confusion with lethargy; Additional info: AMS TECHNIQUE: Imaging protocol: Computed tomography of the head without contrast. Radiation optimization: All CT scans at this facility use at least one of these dose optimization techniques: automated exposure control; mA and/or kV adjustment per patient size (includes targeted exams where dose is matched to clinical indication); or iterative reconstruction. COMPARISON: CT head wo con* [id number] 10/02/2023 7:06 PM RADIATION DOSE METRICS: Total DLP (mGy-cm): 1047.03 FINDINGS: Brain: No evidence of intra-axial or extra-axial hemorrhage. No mass effect or midline shift. Morales-white differentiation is maintained. Basilar cisterns are patent. Cerebral ventricles: No hydrocephalus. Paranasal sinuses: The visualized paranasal sinuses are well aerated. Mastoid air cells: The visualized mastoids and middle ears are clear. Bones: Calvarium is intact. No evidence of acute fracture. Soft tissues: No gross soft tissue abnormality. CT/CT head wo con* [id number] IMPRESSION: 1. No acute intracranial abnormality.
[2024-02-10 17:43] LABS: Valproic Acid Level 4.9 ug/mL (50-100)
[2024-02-10] MEDS: ondansetron 2 mg/ML SDV 2 mL 4 MG IVP (18:05)
[2024-02-10] MEDS: sodium chloride 0.9% 1,000 ML 999 ML IV ×2 (18:05→19:08)
[2024-02-10] MEDS: iohexol 350 mg/mL 500 mL Btl (per mL) IV (18:17)
[2024-02-10 20:57] LABS: Specific Gravity, Urine 1.015 (1.005-1.030); Urine Appearance Cloudy (CLEAR); Urine Color Yellow (Yellow); pH Urine 5 (5-7)
[2024-02-10 20:58] LABS: Add Urine Culture? Yes; Add Urine Microscopic? YES; Bacteria Urine 3+ /hpf; Bilirubin Urine 1+ (Negative); Blood Urine 2+ (Negative); Glucose Urine UA Norm (Normal); Ketones Urine 1+ (Negative); Leukocyte Esterase Urine 2+ (Negative); Mucus Urine 1+ /hpf; Nitrate Urine Positive (Negative); Protein Urine 1+ (Negative); Squamous Epithelial Cell Urine 0-4 /hpf (0-5); Urobilinogen Urine 1 mg/dL (Negative); WBC Urine 15-25 /hpf (0-5)
[2024-02-10] MEDS: cefTRIAXone 1,000 mg SDV 1000 MG IVP (21:30)
[2024-02-10 22:34] VITALS: BP 168/80; PULSE 48; RESP 16; O2SAT 98
== END 2024-02-10 22:27 | disposition home or self-care (01) ==
PROVIDERS: Emergency Medicine; Emergency Provider Emergency Medicine; PCP Nurse Practitioner Family
DX: N39.0 Urinary tract infection, site not specified (principal); Z87.891 Personal history of nicotine dependence; I10 Essential (primary) hypertension
CPT/HCPCS: 36415; 70450; 74177; 80053; 80164; 81001; 83690; 85025; 87077; 87086; 87186; 93005; 96361; 96374; 96375; 99285; J0696; J2405; J7030; Q9967

== ENCOUNTER → 2024-04-08 13:25 | Outpatient (BNVA) | payer MEDICARE, SELFPAY | PROVIDERS: PCP Nurse Practitioner Family; Visit Provider Physician Assistant | DX: G56.02 Carpal tunnel syndrome, left upper limb | CPT/HCPCS: 73110; 99214 ==

== ENCOUNTER 2024-05-01 11:55 | Outpatient (CLI) | payer MEDICARE, SELFPAY ==
--- NOTE | 2024-05-01 12:00 | MM_ITS ---
WS: [id number] Bilateral screening 3D tomosynthesis digital mammogram, 05/01/2024 12:00 PM Clinical Data: SCREENING Comparison: 06/09/2022, 05/14/2020, 03/06/2018, 07/24/2014, 05/15/2013. Findings: No spiculated masses or clustered calcifications are seen. There are no secondary signs of carcinoma . The breasts show heterogeneous density. MM/MM scr BI tomosynthesis [id number] Impression: Negative bilateral mammogram unchanged. Recommend annual screening mammograms. BIRADS: 1 - Negative FOLLOW UP: 1 Year Follow-up DENSITY: The breasts are heterogeneously dense, which may obscure small masses. The CAD spot checker was used
== END 2024-05-01 11:56 | disposition home or self-care (01) ==
LOC: MOBLMAM 11:58
PROVIDERS: PCP Nurse Practitioner Family; Visit Provider Nurse Practitioner Family
DX: Z12.31 Encounter for screening mammogram for malignant neoplasm of breast (principal); R92.333 Mammographic heterogeneous density, bilateral breasts
CPT/HCPCS: 77063; 77067

== ENCOUNTER 2024-05-07 05:50 | Day surgery (SDC) | payer MEDICARE, SELFPAY ==
[2024-05-07] VITALS (7 sets, daily range): BP systolic 124–147; BP diastolic 80–96; PULSE 77–94; RESP 16–18; TEMP 36.2–36.7; O2SAT 95–99; BMI 31.1
--- NOTE | 2024-05-07 06:13 | P.ANESASSM_ITS ---
Pre-Anesthetic Assessment Height/Weight: Height 5 ft 1 in Preop Diagnosis: Carpal tunnel Operation Date: 05/07/24 07:00 Proposed Procedures p Carpal Tunnel Release(Left) - Bob Beltrán, Was Beta Zee taken within 24 hours: N/A Was Clonidine taken within 24 hours: N/A Social No alcohol and No tobacco Exam alert, oriented x 3, clear to auscultation bilaterally and regular rate & rhythm Airway Submandibular: within normal limits Cervical ROM: within normal limits Mallampati: Class III Comments: Comments: Edentulous Anesthetic Plan ASA status: 3 Anesthesia: MAC Other: No prior issues with anesthesia NPO since midnight On pregabalin for nerve pain Patient does have a history of seizures, most recent seizure 2 years ago. On da raul AEDs Labs reviewed from February. Patient does have chronic hypokalemia. Previous potassium 3.3 EKG sinus rhythm with a left axis deviation METS greater than 4 Plan for MAC anesthetic with local via surgeon Medications/Allergies Home Medications Medication Instructions Recorded Confirmed Last Taken Type acetaminophen 325 mg tablet 325 mg PO QID PRN Pain 02/14/22 05/06/24 05/05/24 History (Tylenol) biotin 5 mg capsule 5 mg PO DAILY 02/14/22 05/06/24 04/22/24 History multivitamin 1 tab PO DAILY 02/14/22 05/06/24 05/06/24 History cholecalciferol (vitamin D3) 10 10 mcg PO DAILY 01/24/23 05/06/24 Unknown History mcg (400 unit) capsule (Vitamin D3) magnesium 200 mg tablet 200 mg PO DAILY 01/24/23 05/06/24 04/22/24 History divalproex 500 mg tablet,extended 500 mg PO BID #60 tabs 10/04/23 05/06/24 05/07/24 03:00 Rx release 24 hr pregabalin 50 mg capsule (Lyrica) 200 mg PO TID 04/08/24 05/06/24 05/06/24 History cyclobenzaprine 5 mg tablet 5 mg PO DAILY 05/06/24 05/06/24 05/04/24 History Allergies Allergy/AdvReac Type Severity Reaction Status Date / Time No Known Allergies Allergy Verified 04/08/24 13:34 [facility] Anesthesia Medical History Epilepsy HTN (hypertension) Recurrent herpes labialis Surgical History H/O tubal ligation H/O rotator cuff surgery left H/O section x1 S/P tonsillectomy H/O: hysterectomy H/O left wrist surgery H/O carpal tunnel repair right hand H/O breast surgery left breast cysts removed Previous back surgery x2 Family History Family/Other Diabetes maternal and paternal aunt and uncle Hyperlipidemia maternal aunt and uncle Hypertension maternal and paternal side Stroke paternal aunt Denies family history of Colon cancer Ovarian cancer Clotting disorder Heart disease Breast cancer Anesthesia complication Bleeding disorder Uterine cancer Thyroid disease Social History Smoking and tobacco/nicotine status: never used tobacco/nicotine Quit status (tobacco/nicotine): has quit using Former quit date comment: quit in 2012, smoked x 30 years Data Anesthesia Cardiac Studies: No Data to Display
[2024-05-07] MEDS: scopolamine 1.5 Patch 1 PATCH TRANSDERMA (06:29)
[2024-05-07] MEDS: ketorolac 30 mg/mL INJ IVP (06:29)
[2024-05-07] MEDS: sodium chloride 0.9% 1,000 ML 30 ML IV (06:30)
[2024-05-07] MEDS: acetaminophen 1,000 MG/100 ML PIGGYBACK 400 MG IV (06:38)
--- NOTE | 2024-05-07 06:58 | W.PM.OPSUD ---
Surgery/Procedure H&P Update DATE OF PROCEDURE: May 07, 2024 DATE H&P PERFORMED: 04/08/24 H&P UPDATE INFORMATION: I have reviewed H&P completed within last 30 days, I have examined patient prior to procedure and No changes to prior documentation PREOP DIAGNOSIS: Left carpal tunnel syndrome PRIMARY INDICATION FOR PROCEDURE: Left carpal tunnel syndrome PLANNED PROCEDURE: Operation Date: 05/07/24 07:00 Proposed Procedures p Carpal Tunnel Release(Left) - Bob Beltrán DO
[2024-05-07] MEDS: ceFAZolin 2,000 MG in sodium chloride 0.9% (plus) 50 ML 100 MG IV (06:59)
[2024-05-07] MEDS: lidocaine-epi 1% 20 mL INJ 5 ML INJECTION (07:23)
[2024-05-07] MEDS: ROPivacaine 0.5% SDV 30 mL 25 MG INJECTION (07:23)
--- NOTE | 2024-05-07 07:32 | W.PM.BPON ---
Date of Procedure: [May 07, 2024] Surgeon: [Dr. Beltrán DO] Pulmonologist(s): [N/A] Procedure(s) performed: [Left carpal tunnel release] Findings of the procedure(s): [Left carpal tunnel syndrome] Estimated blood loss: [3 mL] Specimen(s) removed: [N/A] Post-operative diagnosis: [Left carpal tunnel syndrome]
--- NOTE | 2024-05-07 07:36 | P.OP_ITS ---
Operative Report Date of procedure: May 07, 2024 Surgeon: Bob Beltrán DO Procedure: Preop Diagnosis: Left Carpal Tunnel Syndrome Post-op diagnosis: Same Procedure done: 1. Left carpal tunnel release Surgeon: Bob Beltrán DO Anesthesia: MAC (Local) Estimated blood loss: 3 mL Tourniquet time 7 minutes IV fluids: See anesthesia record Complications: None Findings: See operative report narrative Condition: stable Disposition: same day Brief History: Patient is a pleasant 63 year-old female with left carpal tunnel syndrome. Patient has been worked up in the outpatient setting findings and physical examination consistent with this. Patient nerve conduction studies consistent with carpal tunnel syndrome. We detailed out patient's risk benefits complication alternatives with surgical and nonsurgical treatment options. Through shared decision making, patient agrees to proceed with surgical intervention of the left carpal tunnel release . Patient understands and agrees with current plan. All questions answered. Patient elects to proceed with surgical intervention. Procedure: Patient seen and evaluated in the preoperative holding area. Consent was reviewed and signed with patient. Correct extremity was marked. Patient was seen evaluated by the anesthesia department once cleared for surgery was brought back to the operative suite. Patient was kept on [facility] in supine position all bony prominences were well-padded patient properly secured to the bed. Left upper extremity was then placed onto an armboard. A nonsterile tourniquet was applied to the left upper arm. Patient underwent anesthesia per the anesthesia department. Patient's left upper extremity was then prepped and draped in standard orthopedic fashion. Final timeout performed. Patient received appropriate preoperative antibiotics. Under sterile aseptic technique patient received local anesthesia over the preplanned carpal tunnel incision site. Esmarch was used to exsanguinate the left upper extremity and tourniquet was insufflated to 250 mmHg. A standard mini open left carpal tunnel incision was made. Starting distally at Frederick's cardinal line in line with the fourth ray extending proximally distal to the wrist crease centered over the carpal tunnel. Sharp scalpel incision was made through skin and subcutaneous tissue. Self-retaining retractor was placed and the palmar fascia was identified. This was then split longitudinally and direct visualization of the transverse carpal ligament was then made. I then utilizing scalpel feathered through the transverse carpal ligament until I entered the floor of the transverse carpal tunnel ligament into the carpal tunnel. Next I switched to dissection scissors and completed my release of the transverse carpal ligament distally with care to protect the recurrent motor branch. I completely released into the palmar fat and until no entrapment was noted distally. Care was made to protect the superficial palmar arch during my distal dissection. Next, nasal speculum placed proximally for retraction of soft tissue on top of the Transverse carpal ligament. Next the contents of the carpal tunnel where protected and and subsequently utilizing dissection scissors under loupe magnification completely released the transverse carpal ligament proximally into the antebrachial fascia. Care was made to protect the palmar cutaneous branch by keeping my scissors curved ulnarly. Once completely released, I then placed my [place] and had appropriate decompression of the carpal tunnel proximally as well as distally. I then inspected the contents of the carpal tunnel which showed an hourglass shape of the median nerve showing its compression. No masses were noted. Tendons appeared healthy. Wound was then thoroughly irrigated. Tourniquet deflated. Hemostasis satisfactory with bipolar electrocautery. I then closed the incision with interrupted nylon stitches. Xeroform 4 x 4's and a bulky soft dressing was applied to the left upper extremity. Patient was then awakened from anesthesia and taken to PACU in stable condition. Patient tolerated procedure without complications. Disposition: Patient taken to PACU in stable condition recovering well. Dressing clean dry and intact. Patient will receive appropriate discharge instructions as well as pain medication postoperatively. Patient to follow-up with me in the office in 2 weeks. They understand they may be weightbearing as tolerated to the left hand. Patient should keep incision clean dry and intact. Patient understands if any questions or concerns may contact the office.
--- NOTE | 2024-05-07 07:47 | P.PCN_ITS ---
PACU note Narrative: Patient is a 63-year-old female who just underwent a left carpal tunnel release. Patient transferred to PACU in stable condition. Pain is well controlled. Dressing on hand is dry and in place. Patient's fingers are warm and well- perfused. Patient can wiggle fingers. normal cap refill under 2 seconds. Patient has normal elbow range of motion. Sensation to hand intact. Exam: awake Disposition: discharged
--- NOTE | 2024-05-07 08:29 | ANE.PACU2 ---
Inpatient post-anesthesia follow up: Airway intact: Yes Vital signs: Temperature 97.1 F Pulse Rate 84 Respiratory Rate 18 Blood Pressure 129/96 Pulse Oximetry 97 Oxygen Delivery Me thod Room Air Oxygen Flow Rate Fraction of Inspir ed Oxygen Hydration adequate: Yes Nausea and vomiting: No Pain level: 1 Mental status: Baseline
== END 2024-05-07 08:29 | disposition home or self-care (01) ==
PROVIDERS: PCP Nurse Practitioner Family; Visit Provider Student in an Organized Health Care Education/Training Program
PROC: (CPT 64721; principal; 2024-05-07 07:00)
DX: G56.02 Carpal tunnel syndrome, left upper limb (principal); I10 Essential (primary) hypertension
CPT/HCPCS: 64721; J0131; J0690; J1100; J1885; J2250; J2405; J2704; J2795; J7030

== ENCOUNTER → 2024-05-22 10:00 | Outpatient (BNVA) | payer MEDICARE, SELFPAY | PROVIDERS: PCP Nurse Practitioner Family; Visit Provider Physician Assistant | DX: R03.0 Elevated blood-pressure reading, without diagnosis of hypertension (principal); Z98.890 Other specified postprocedural states | CPT/HCPCS: 99024 ==

== ENCOUNTER 2025-01-03 12:54 | Inpatient (IN) | payer MEDICARE, SELFPAY ==
[2025-01-03] VITALS (9 sets, daily range): BP systolic 134–164; BP diastolic 76–89; PULSE 52–71; RESP 14–18; TEMP 36.6–36.8; O2SAT 92–99; BMI 32.4
--- NOTE | 2025-01-03 13:04 | XRR_ITS ---
PROCEDURE INFORMATION: Exam: XR Chest Exam date and time: 01/03/2025 1:39 PM Age: 64 years old Clinical indication: Other: AMS weakness TECHNIQUE: Imaging protocol: Radiologic exam of the chest. Views: 1 view. COMPARISON: CR XR chest 1V portable [id number] 10/02/2023 6:20 PM FINDINGS: Lungs: Unremarkable. No consolidation or mass. Pleural spaces: Unremarkable. No pleural effusion. No pneumothorax. Heart/Mediastinum: Mild cardiomegaly is noted. Bones/joints: Unremarkable. XR/XR chest 1V portable [id number] IMPRESSION: Stable cardiomegaly
--- NOTE | 2025-01-03 13:04 | CTR_ITS ---
PROCEDURE INFORMATION: Exam: CT Head Without Contrast Exam date and time: 01/03/2025 1:47 PM Age: 64 years old Clinical indication: Altered mental status/memory loss; Additional info: AMS TECHNIQUE: Imaging protocol: Computed tomography of the head without contrast. Radiation optimization: All CT scans at this facility use at least one of these dose optimization techniques: automated exposure control; mA and/or kV adjustment per patient size (includes targeted exams where dose is matched to clinical indication); or iterative reconstruction. COMPARISON: CT head wo con* [id number] 02/10/2024 6:13 PM RADIATION DOSE METRICS: Total DLP (mGy-cm): 1073.34 FINDINGS: Brain: Normal. No hemorrhage. Unremarkable white matter. No mass effect or acute infarct. Cerebral ventricles: No ventriculomegaly. No midline shift. Paranasal sinuses: Visualized sinuses are unremarkable. No fluid levels. Mastoid air cells: Visualized mastoid air cells are well aerated. Bones: Unremarkable. No acute fracture. Soft tissues: Unremarkable. CT/CT head wo con* [id number] IMPRESSION: No acute intracranial abnormality.
--- NOTE | 2025-01-03 13:05 | ECG_ITS ---
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1960 Requested By: Justin Alba Order Number: [id number] Reading MD: GIANCARLO CASEY Measurements Intervals [place] Rate: 65 P: 46 MD: 157 QRS: -22 QRSD: 107 T: -11 QT: 404 QTc: 422 Interpretive Statements SINUS RHYTHM WITH SINUS ARRHYTHMIA BORDERLINE LEFT AXIS DEVIATION [QRS AXIS < -20] LEFT VENTRICULAR HYPERTROPHY AND ST-T CHANGE [VOLTAGE CRITERIA PLUS ST/T ABNORMALITY] Compared to ECG 02/10/2024 17:43:23 No significant changes Electronically Signed On 01-07-2025 23:01:15 CDT by GIANCARLO CASEY [id number]
--- NOTE | 2025-01-03 13:07 | W.ED.WEAKNES ---
HPI - Weakness General: Chief complaint: Weakness Stated complaint: WEAKNESS Time Seen by Provider: 01/03/25 12:56 History of Present Illness: History is obtained from the patient and from EMS. Limited history from the patient due to her mental status. According EMS the patient's has been in the hospital for 4 days and the patient has not gotten out of bed for the last 4 days. Family had called EMS yesterday and apparently patient had refused transportation but today she had soiled on herself and they felt that she did not have clear orientation sufficient to refuse transportation. The patient states she feels fine. She denies any pain. She denies fall or injury. [facility] PFSH: Medical History Epilepsy HTN (hypertension) Recurrent herpes labialis Surgical History H/O tubal ligation H/O rotator cuff surgery left H/O section x1 S/P tonsillectomy H/O: hysterectomy H/O left wrist surgery H/O carpal tunnel repair right hand H/O breast surgery left breast cysts removed Previous back surgery x2 Family History Family/Other Diabetes maternal and paternal aunt and uncle Hyperlipidemia maternal aunt and uncle Hypertension maternal and paternal side Stroke paternal aunt Denies family history of Colon cancer Ovarian cancer Clotting disorder Heart disease Breast cancer Anesthesia complication Bleeding disorder Uterine cancer Thyroid disease Social History Smoking and tobacco/nicotine status: never used tobacco/nicotine Quit status (tobacco/nicotine): has quit using Former quit date comment: quit in 2012, smoked x 30 years Physical Exam Narrative: EXAM NARRATIVE: Patient is sitting up in bed alert. She is oriented to person and place but not to time. No signs of trauma to her head. She has some older appearing abrasions on her left upper back. No other signs of trauma noted on exam. No vertebral tenderness over her neck or back and her neck is supple. No icterus. Pupils briskly reactive. Full range ocular motion. No evident visual field deficit. Heart regular rhythm. Lung sounds are clear. Abdomen soft nontender with no guarding or rebound. Normal external female genitalia. Extremities warm well-perfused with no calf tenderness or pitting edema. No rash in exposed areas. She moves her arms and legs freely. No drift in her arms or legs. She has grossly intact sensation. Her speech is clear. Course Vital Signs: Vital signs: Vital Signs Temperature 97.8 F 01/03/25 12:55 Pulse Rate 71 01/03/25 16:00 Respiratory Rate 16 01/03/25 16:00 Blood Pressure 153/85 01/03/25 16:00 Pulse Oximetry 99 01/03/25 16:00 Oxygen Delivery Me thod Room Air 01/03/25 16:00 MDM - Weakness Medical Decision Making Patient with findings and history consistent with dementia. She cannot tell me the year or the month. She can answer some questions well but clearly has poor short-term memory. Reportedly her went into the hospital 4 days ago and she has not gotten out of bed in the last 4 days is what family told EMS. Patient denies any known or suspected toxin exposure. History is limited by her mental status however. She denies any pain. She is alert and does not appear in any distress. She does not appear malnourished. She has clear speech and no evident focal motor deficits on exam. Differential is very broad and would include toxin or medication adverse effect, infectious process, stroke, baseline dementia now with her not at home not doing well, among many others. Will send for CT of her head and obtain CBC CMP urinalysis CK and chest x-ray and EKG. I ordered 1 L normal saline IV fluid bolus in case of dehydration with reportedly not getting out of bed for 4 days although the patient does not appear significantly dehydrated and does not appear malnourished or poorly cared for. Patient EKG to my interpretation shows sinus rhythm with rate of [address] segment changes. CT of the head and chest x-ray showed no acute disease process per radiology to explain patient's symptoms. Patient labs show mildly low potassium which will replete with oral potassium. Patient's white count is normal. Urinalysis not convincing for infection. Patient denies any carbon monoxide exposure. The patient's ynjqga-as-rjz is now here. She states the patient takes Depakote for history of seizures. This is not listed on her medication list available currently. The zltzxx-ct-zeg does not think she has been taking her medications. It is possible the patient has had seizures and had some postictal phase. Patient here however does not appear postictal she is not sedate. She is very confused still however and the blvieq-ea-iev states this is not normal for her and she normally drives her to his appointments and takes care of the and does not have dementia or memory problems normally. Patient still cannot tell me what year it is or what month it is. Toxidrome, occult stroke, or other cause still considered. Will order Depakote level. Patient clearly unable to care for herself at home. I consulted with hospitalist for admission and they will admit and continue patient's evaluation and care. Lab Data 01/03/25 13:22 01/03/25 13:22 Radiology Impressions Chest X-Ray 01/03/25 13:04 IMPRESSION: Stable cardiomegaly Head CT 01/03/25 13:04 IMPRESSION: No acute intracranial abnormality. Laboratory Results WBC 5.34 10^3/uL (3.29-11.43) 01/03/25 13:22 RBC 4.63 10^6/uL (3.85-5.65) 01/03/25 13:22 Hgb 14.80 g/dL (11.27-16.99) 01/03/25 13:22 Hct 44.2 % (36-47) 01/03/25 13:22 MCV 95.5 fl (85-98) 01/03/25 13:22 MCH 32.0 pg (27-33) 01/03/25 13:22 MCHC 33.5 g/dL (30-55) 01/03/25 13:22 RDW 13.2 % (12.1-15.1) 01/03/25 13:22 Plt Count 213 10^3/cmm (157-399) 01/03/25 13:22 MPV 11.5 fL (7.4-10.4) H 01/03/25 13:22 Neut % (Auto) 78.0 % 01/03/25 13:22 Lymph % (Auto) 15.4 % 01/03/25 13:22 [place] % (Auto) 5.8 % 01/03/25 13:22 Eos % (Auto) 0.0 % 01/03/25 13:22 Baso % (Auto) 0.4 % 01/03/25 13:22 Neut # (Auto) 4.17 10^3/uL (1.8-7.7) 01/03/25 13:22 Lymph # (Auto) 0.8 10^3/uL (0.8-4.8) 01/03/25 13:22 [place] # (Auto) 0.3 10^3/uL (0.2-0.9) 01/03/25 13:22 Eos # (Auto) 0.0 10^3/uL (0.0-0.8) 01/03/25 13:22 Baso # (Auto) 0.0 10^3/uL (0.0-0.1) 01/03/25 13:22 Nucleated RBC % (auto) 0 % 01/03/25 13:22 Nucleated RBCs # 0.0 /100WBC 01/03/25 13:22 Sodium 144 mmol/L (136-145) 01/03/25 13:22 Potassium 3.1 mmol/L (3.5-5.1) L 01/03/25 13:22 Chloride 107 mmol/L (98-107) 01/03/25 13:22 Carbon Dioxide 19 mmol/L (22-29) L 01/03/25 13:22 Anion Gap 21.1 (5-19) H 01/03/25 13:22 BUN 38 mg/dL (8-23) H 01/03/25 13:22 Creatinine 0.6 mg/dL (0.5-0.9) 01/03/25 13:22 GFR Calculation 101.3 mL/min (90-130) 01/03/25 13:22 Glucose 91 mg/dL (65-115) 01/03/25 13:22 Calculated Osmolality 307 mOsm/kg (285-295) H 01/03/25 13:22 Calcium 10.1 mg/dL (8.5-10.5) 01/03/25 13:22 Total Bilirubin 0.5 mg/dL (0.15-1.2) 01/03/25 13:22 AST 21 U/L (0-32) 01/03/25 13:22 ALT 26 U/L (0-33) 01/03/25 13:22 Alkaline Phosphatase 138 U/L (35-105) H 01/03/25 13:22 Total Protein 8.1 g/dL (6.6-8.7) 01/03/25 13:22 Albumin 4.6 g/dL (3.5-5.2) 01/03/25 13:22 Globulin 3.5 g/dL (1.3-4.6) 01/03/25 13:22 TSH 0.45 uIU/mL (0.27-4.20) 01/03/25 13:22 Urine Color Yellow (Yellow) 01/03/25 14:59 Urine Appearance Clear (CLEAR) 01/03/25 14:59 Urine pH TNP 01/03/25 14:59 Ur Specific [place] Not Reportable 01/03/25 14:59 Urine Protein Not Reportable 01/03/25 14:59 Urine Glucose (UA) Not Reportable 01/03/25 14:59 Urine Ketones Not Reportable 01/03/25 14:59 Urine Blood Not Reportable 01/03/25 14:59 Urine Nitrate Not Reportable 01/03/25 14:59 Urine Bilirubin Not Reportable 01/03/25 14:59 Urine Urobilinogen Not Reportable 01/03/25 14:59 Ur Leukocyte Esterase Not Reportable 01/03/25 14:59 Urine RBC 0-4 /hpf (0-2) H 01/03/25 14:59 Urine WBC 5-10 /hpf (0-5) H 01/03/25 14:59 Ur Squamous Epith Cells 0-4 /hpf (0-5) H 01/03/25 14:59 Amorphous Sediment Not Reportable 01/03/25 14:59 Urine Bacteria Trace /hpf (NONE) 01/03/25 14:59 All radiology interpretation(s) finalized by discharge Discharge Plan Discharge Patient Disposition: Placed in Observation Clinical Impression: Acute alteration in mental status Coding Level of Care Code ED Payroll Processor for Chg Fwd Related Data Home Medications ?Medication ?Instructions ?Recorded ?Confirmed acetaminophen 325 mg tablet 650 mg PO QID PRN Pain 02/14/22 01/03/25 (Tylenol) biotin 5 mg capsule 5 mg PO DAILY 02/14/22 01/03/25 multivitamin 1 tab PO DAILY 02/14/22 01/03/25 cholecalciferol (vitamin D3) 10 10 mcg PO DAILY 01/24/23 01/03/25 mcg (400 unit) capsule (Vitamin D3) magnesium 200 mg tablet 200 mg PO DAILY 01/24/23 01/03/25 cyclobenzaprine 5 mg tablet 5 mg PO DAILY 05/06/24 01/03/25 pregabalin 200 mg capsule 200 mg PO TID 01/03/25 01/03/25 Allergies Allergy/AdvReac Type Severity Reaction Status Date / Time tramadol Allergy Severe seizures Uncoded 05/22/24 10:09
[2025-01-03 13:30] LABS: Basophils % 0.4 %; Hematocrit 44.2 % (36-47); Lymphocytes # 0.8 10^3/uL (0.8-4.8); Lymphocytes % 15.4 %; Mean Corpuscular HGB Conc 33.5 g/dL (30-55); Mean Corpuscular Volume 95.5 fl (85-98); Mean Platelet Volume 11.5 fL (7.4-10.4); Monocytes # 0.3 10^3/uL (0.2-0.9); Monocytes % 5.8 %; Neutrophils # 4.17 10^3/uL (1.8-7.7); Nucleated Red Blood Cells % 0 %; Platelet Count 213 10^3/cmm (157-399); Red Blood Count 4.63 10^6/uL (3.85-5.65); Red Cell Distribution Width 13.2 % (12.1-15.1); White Blood Count 5.34 10^3/uL (3.29-11.43)
[2025-01-03 13:54] LABS: Alanine Aminotransferase 26 U/L (0-33); Albumin Level 4.6 g/dL (3.5-5.2); Alkaline Phosphatase 138 U/L (35-105); Anion Gap 21.1 (5-19); Aspartate Amino Transferase 21 U/L (0-32); Blood Urea Nitrogen 38 mg/dL (8-23); Calcium 10.1 mg/dL (8.5-10.5); Carbon Dioxide 19 mmol/L (22-29); Chloride 107 mmol/L (98-107); Globulin 3.5 g/dL (1.3-4.6); Glomerular Filtration Rate 101.3 mL/min (90-130); Glucose 91 mg/dL (65-115); Osmolality Calculated 307 mOsm/kg (285-295); Potassium 3.1 mmol/L (3.5-5.1); Sodium 144 mmol/L (136-145); Thyroid Stimulating Hormone 0.45 uIU/mL (0.27-4.20); Total Bilirubin 0.5 mg/dL (0.15-1.2); Total Protein 8.1 g/dL (6.6-8.7)
[2025-01-03] MEDS: sodium chloride 0.9% 1,000 ML 999 ML IV (13:59)
[2025-01-03 15:02] LABS: Add Urine Microscopic? NO
[2025-01-03 15:11] LABS: Bacteria Urine TRACE /hpf; Charge for UA Resulting for Rev; RBC Urine 0-4 /hpf (0-2); Squamous Epithelial Cell Urine 0-4 /hpf (0-5); UA Manual Slide Review YES; Urine Appearance Clear (CLEAR); Urine Color Yellow (Yellow)
[2025-01-03] MEDS: potassium chloride oral liq 20 mEq/15 mL UDC 40 MEQ PO (15:29)
[2025-01-03 16:43] LABS: Valproic Acid Level 23.1 ug/mL (50-100)
[2025-01-03 17:14] LABS: Ammonia 25 umol/L (11-51)
[2025-01-03 17:21] LABS: Alcohol Level < 10 mg/dL (0-10)
[2025-01-03 18:04] LABS: Lactic Sepsis W/Reflex 1.1 mmol/L (0.5-2.2)
[2025-01-03] MEDS: ondansetron 2 mg/ML SDV 2 mL 4 MG IVP (18:06)
[2025-01-03 18:10] LABS: Procalcitonin 0.04 ng/mL (0-0.5)
--- NOTE | 2025-01-03 18:32 | ECG_ITS ---
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1960 Requested By: Justin Alba Order Number: [id number] Reading MD: GIANCARLO CASEY Measurements Intervals [place] Rate: 48 P: 23 CA: 158 QRS: -24 QRSD: 105 T: -33 QT: 473 QTc: 426 Interpretive Statements SINUS BRADYCARDIA BORDERLINE LEFT AXIS DEVIATION [QRS AXIS < -20] LEFT VENTRICULAR HYPERTROPHY AND ST-T CHANGE [VOLTAGE CRITERIA PLUS ST/T ABNORMALITY] Compared to ECG 01/03/2025 13:05:52 Sinus rhythm no longer present Sinus arrhythmia no longer present ST (T wave) deviation still present Electronically Signed On 01-07-2025 23:01:32 CDT by GIANCARLO CASEY [email or web address]
--- NOTE | 2025-01-03 18:35 | PM.HP ---
Providers/Chief Complaint Admitting Physician: Rossy Holguin MD Primary Care Provider: Sia Aguilar Chief Complaint: WEAKNESS History of Present Illness Shirley Gilmore is a 64 year old female with past medical history of seizure disorder on Depakote, fibromyalgia on high-dose Lyrica who is a primary caregiver of her . Patient's was admitted to the hospital and is being treated at outside hospital for ureteric stent. Patient has been living at her house by herself for last 4 days. Was brought into the ER today by her [id number] because of altered mental status, lethargy, somnolence. As per [id number] patient has not moved out of her bed for the last 4 days and was very tired appearing and confused hence she brought her to the ER. In the ER she was received IV fluid bolus after which patient is more awake and alert. On examination patient is awake and alert x 3, not sure why she is in the hospital, tired appearing, lethargic. She denies any discomfort, difficulty in breathing, chest pain, dysuria, diarrhea, fever, sick contacts. She complains of nausea and vomiting. States she has not had around 2 or 3 episodes in the last 3 days with last vomiting in the ER when she was given oral potassium. She is not sure if she has been taking her medications regularly. She denies having any seizure. Denies any breakthrough seizures in the past. States she only uses Lyrica for her pain for fibromyalgia and does not use any other opiates or [id number] medications. She is not able to tell the dose of her medications. States she takes Lyrica twice daily. Review of Systems General: Reports: 10 or more systems reviewed and unremarkable except in HPI and below Const: Denies: fever(s), chills, body aches, change in appetite, change in weight, malaise, night sweats, diaphoresis, change in sleep pattern, daytime sleepiness or snoring Eyes: Denies: change in vision, blurry vision, photophobia, eye discomfort or eye discharge ENMT: Denies: throat pain, enlarged tonsils, hoarseness, mouth pain, oral sores, dry mouth, tinnitus, nasal congestion or post nasal drip Card: Denies: chest pain, palpitations, irregular heart rhythm, edema, swelling of feet/ankles, lightheadedness, syncope, pre-syncope, dyspnea on exertion, orthopnea, leg pain with exertion or acrocyanosis Resp: Denies: dyspnea, productive cough, non-productive cough, wheezing, stridor, pain on inspiration, change in phlegm color, hemoptysis or chest congestion GI: Denies: abdominal pain, nausea, vomiting, hematemesis, coffee ground emesis, dysphagia, heartburn, diarrhea, constipation, bloating, GI cramping, change in bowel habits, pain on defecation, hematochezia or melena : Denies: flank pain, dysuria, urinary frequency, urinary urgency, urinary hesitancy, nocturia or hematuria Musc: Denies: neck pain, back pain, extremity pain, joint pain, joint swelling, joint redness, joint stiffness or limited range of motion Neuro: Denies: headache(s), numbness in extremities, weakness in extremities, sensory changes, lack of coordination, difficulty walking, frequent falls, dizziness, vertigo, confusion, Slurred speech present, difficulty communicating thoughts or seizure-like activity Psych: Denies: anxiety, depression, mood swings, panic attacks, hopelessness or irritability Endo: Denies: polyuria, polydipsia, tired all the time, cold intolerance, excessive sweating, flushing or heat intolerance Thuan/Lymph: Denies: easy bruising or easy bleeding All/Imm: Denies: tongue swelling, facial swelling or acute wheezing Medications/Allergies Home Medications ?Medication ?Instructions ?Recorded ?Confirmed ?Last Taken ?Type acetaminophen 325 mg tablet 650 mg PO QID PRN Pain 02/14/22 01/03/25 05/05/24 History (Tylenol) biotin 5 mg capsule 5 mg PO DAILY 02/14/22 01/03/25 04/22/24 History multivitamin 1 tab PO DAILY 02/14/22 01/03/25 05/06/24 History cholecalciferol (vitamin D3) 10 10 mcg PO DAILY 01/24/23 01/03/25 Unknown History mcg (400 unit) capsule (Vitamin D3) magnesium 200 mg tablet 200 mg PO DAILY 01/24/23 01/03/25 04/22/24 History cyclobenzaprine 5 mg tablet 5 mg PO DAILY 05/06/24 01/03/25 05/04/24 History pregabalin 200 mg capsule 200 mg PO TID 01/03/25 01/03/25 Unknown History Allergies Allergy/AdvReac Type Severity Reaction Status Date / Time tramadol Allergy Severe seizures Uncoded 05/22/24 10:09 PFSH Acute PFSH: Medical History (Updated 01/03/25 @ 19:58 by Cuco Goodwin MD) Epilepsy HTN (hypertension) Recurrent herpes labialis Surgical History (Updated 05/22/24 @ 10:49 by CAROL Allen) H/O tubal ligation H/O rotator cuff surgery left H/O section x1 S/P tonsillectomy H/O: hysterectomy H/O left wrist surgery H/O carpal tunnel repair right hand H/O breast surgery left breast cysts removed Previous back surgery x2 Family History Family/Other Diabetes maternal and paternal aunt and uncle Hyperlipidemia maternal aunt and uncle Hypertension maternal and paternal side Stroke paternal aunt Denies family history of Colon cancer Ovarian cancer Clotting disorder Heart disease Breast cancer Anesthesia complication Bleeding disorder Uterine cancer Thyroid disease Social History Smoking and tobacco/nicotine status: never used tobacco/nicotine Quit status (tobacco/nicotine): has quit using Former quit date comment: quit in 2012, smoked x 30 years Vitals/I&O/Wt Last Vital Signs Temp 97.8 F 01/03/25 12:55 Pulse 52 L 01/03/25 17:35 Resp 16 01/03/25 17:35 BP 153/76 01/03/25 17:35 Pulse Ox 96 01/03/25 17:35 O2 Del Method Room Air 01/03/25 17:35 01/03/25 01/03/25 01/03/25 06:59 14:59 22:59 Intake Total 1000 / 1000 Balance 1000 / 1000 Physical Exam Narrative: General: No acute distress, alert oriented to time, self, being in the hospital, date of but not sure why she is in the hospital, tired appearing, lethargic HEENT: PERRLA, pupils bilaterally equal and reactive Chest: Normal vesicular breath sounds, no added sounds, equal good air entry bilaterally CVS: S1-S2 regular, no murmurs, no tachycardia, no gallops, no rubs Abdomen: Soft, nontender, no organomegaly, bowel sounds present Neuro: No focal deficits, no facial deformity, AO x3, power 5/5 in all limbs Data 01/03/25 13:22 01/03/25 13:22 A&P Assessment and plan (1) Acute alteration in mental status: Unknown etiology. Infectious cause less likely as patient does not have any symptom, no leukocytosis, UA negative for UTI, on room air. Chest x-ray negative for consolidation. CT head negative for stroke. Cannot rule out breakthrough seizures. Valproic acid levels low. Check prolactin, load with Depakote 500 mg IV one-time. Have requested patient's family to bring home medications so that she can be on home dose. Check urine drug screen. Cannot rule out in setting of polypharmacy as seems patient is on high-dose Lyrica. For now start on 50 mg twice daily. Seizure precaution, fall precaution, aspiration precaution. Check A1c, lipid panel. Check ammonia level, CPK. LFTs within normal limits. Check respiratory viral panel. Start on IV hydration with D5 NS at 75 cc/h. (2) Epilepsy: Seizure precaution. Depakote 5 mg one-time. Requested family to bring home dose so can be started on home dose medication. (3) Hypokalemia: Potassium 3.1. Most likely in setting of vomiting. 80 mg of oral potassium. Repeat level in AM. Plan Full code Cardiac diet Protonix for PUD prophylaxis Heparin for DVT prophylaxis PDMP PDMP Reviewed: Not Reviewed Attestations Medical Necessity Statement*: Admit under observation for further evaluation and management of altered mental status with concerns for breakthrough seizures, polypharmacy Diagnoses Acute alteration in mental status R41.82 Epilepsy G40.909 Hypokalemia E87.6
[2025-01-03 19:04] LABS: Creatine Phosphokinase 101 U/L (26-192)
[2025-01-03 19:06] LABS: Prolactin 11.89 ng/mL (4.8-23.3)
[2025-01-03] MEDS: dextrose 5%-sod chloride 0.9% 1,000 ML 75 ML IV (20:45)
[2025-01-03] MEDS: valproic acid inj 500 MG in sodium chloride 0.9% 50 ML 55 MG IV (20:51)
[2025-01-03] MEDS: heparin 5,000 unit/mL INJ 1 mL 5000 UNIT SUBCUT (20:55)
[2025-01-03] MEDS: pantoprazole 40 mg SDV IVP (20:55)
[2025-01-03] MEDS: lidocaine 1% 5 ML in potassium chloride premix 100 ML 26.25 ML IV (21:53)
[2025-01-03 22:03] LABS: Iron 59 ug/dL (37-145); Percent Saturation 15.5 % (20-50); Thyroid Stimulating Hormone 0.45 uIU/mL (0.27-4.20); Total Iron Binding Capacity 379 mcg/dl; Unsaturated Iron Binding 320 ug/dL (112-347); Vitamin B12 421 pg/mL (232-1245)
[2025-01-04] VITALS (8 sets, daily range): BP systolic 138–156; BP diastolic 76–92; PULSE 50–89; RESP 16–18; TEMP 36.6–37; O2SAT 93–99; BMI 35.1
[2025-01-04 01:06] LABS: Adenovirus Not Detected (NOT DETECT); Chlamydia Pneumoniae Not Detected (NOT DETECT); Coronavirus 229E,HKU1,NL63,OC4 Not Detected (NOT DETECT); Human Metapneumovirus Not Detected (NOT DETECT); Human Rhinovirus/Enterovirus Not Detected (NOT DETECT); Influenza A Not Detected (NOT DETECT); Influenza A H1 Not Detected (NOT DETECT); Influenza A H1-2009 Not Detected (NOT DETECT); Influenza A H3 Not Detected (NOT DETECT); Influenza B Not Detected (NOT DETECT); Mycoplasma Pneumoniae Not Detected (NOT DETECT); Parainfluenza Virus Type 1 Not Detected (NOT DETECT); Parainfluenza Virus Type 2 Not Detected (NOT DETECT); Parainfluenza Virus Type 3 Not Detected (NOT DETECT); Parainfluenza Virus Type 4 Not Detected (NOT DETECT); Respiratory Syncytial Virus A Not Detected (NOT DETECT); Respiratory Syncytial Virus B Not Detected (NOT DETECT); SARS-COV-2 Not Detected (NOT DETECT)
[2025-01-04] MEDS: lidocaine 1% 5 ML in potassium chloride premix 100 ML 26.25 ML IV (01:44)
[2025-01-04 03:15] LABS: Basophils % 0.5 %; Eosinophils % 0.2 %; Hematocrit 40.7 % (36-47); Lymphocytes # 1.3 10^3/uL (0.8-4.8); Mean Corpuscular HGB Conc 33.9 g/dL (30-55); Mean Corpuscular Hemoglobin 32.1 pg (27-33); Mean Corpuscular Volume 94.7 fl (85-98); Mean Platelet Volume 11.7 fL (7.4-10.4); Monocytes # 0.7 10^3/uL (0.2-0.9); Monocytes % 12.7 %; Neutrophils # 3.52 10^3/uL (1.8-7.7); Neutrophils % 63.2 %; Nucleated Red Blood Cells % 0 %; Platelet Count 216 10^3/cmm (157-399); Red Cell Distribution Width 13.2 % (12.1-15.1); White Blood Count 5.57 10^3/uL (3.29-11.43)
[2025-01-04 04:20] LABS: Estmated Average Glucose 111; Hemoglobin A1C 5.5 % (4.0-6.0)
[2025-01-04 04:32] LABS: Procalcitonin 0.03 ng/mL (0-0.5)
[2025-01-04 04:36] LABS: Alanine Aminotransferase 19 U/L (0-33); Albumin Level 4.2 g/dL (3.5-5.2); Alkaline Phosphatase 110 U/L (35-105); Aspartate Amino Transferase 15 U/L (0-32); Blood Urea Nitrogen 31 mg/dL (8-23); Calcium 9.3 mg/dL (8.5-10.5); Carbon Dioxide 18 mmol/L (22-29); Creatinine Clr Calc Pharmacy 110.2591; Globulin 2.7 g/dL (1.3-4.6); Glucose 101 mg/dL (65-115); Magnesium 1.9 mg/dL (1.7-2.3); Phosphorus 1.8 mg/dL (2.5-4.5); Total Bilirubin 0.4 mg/dL (0.15-1.2); Total Protein 6.9 g/dL (6.6-8.7)
[2025-01-04 04:38] LABS: Chol HDL Ratio 5.35 mg/dL (0.0-4.40); Cholesterol 198 mg/dL (0-200); HDL Cholesterol 37 mg/dL (60-100); LDL Cholesterol Calculated 142 mg/dL (50-129); LDL HDL Ratio 3.84 RATIO (0.00-3.22); Triglycerides 93 mg/dL (0-150)
[2025-01-04 05:53] LABS: Anion Gap 18.8 (5-19); Chloride 113 mmol/L (98-107); Osmolality Calculated 309 mOsm/kg (285-295); Potassium 3.8 mmol/L (3.5-5.1); Sodium 146 mmol/L (136-145)
[2025-01-04 08:54] LABS: Folate Level 14.7 ng/mL (4.8-37.3)
[2025-01-04] MEDS: docusate sodium 100 mg Capsule PO (08:54)
[2025-01-04] MEDS: pregabalin 50 mg Capsule PO ×2 (08:54→17:47)
[2025-01-04] MEDS: cyclobenzaprine 10 mg Tablet 5 MG PO (08:54)
[2025-01-04] MEDS: heparin 5,000 unit/mL INJ 1 mL 5000 UNIT SUBCUT ×2 (08:55→19:57)
[2025-01-04] MEDS: dextrose 5%-sod chloride 0.9% 1,000 ML 75 ML IV ×2 (11:01→19:58)
--- NOTE | 2025-01-04 14:51 | P.PN_ITS ---
Subjective 2 Subjective: H&P and chart reviewed. Patient appears to be awake alert and oriented today. Able to answer questions regarding her name, age, date of . She knows she is in the hospital, however her affect is extremely flat. She is not able to exactly tell me her home living situation but does state that typically she takes care of her . She was found yesterday at home by her family members being extremely lethargic and was found to have reportedly been incontinent. Her Depakote levels were low and she received extra doses yesterday. She tells me that she does not know if she was on Depakote at home or not. Medications: Reviewed: Yes Vitals/I&O/Wt Last Vital Signs Temp 98.6 F 01/04/25 11:52 Pulse 62 01/04/25 11:52 Resp 17 01/04/25 11:52 BP 147/91 01/04/25 11:52 Pulse Ox 94 01/04/25 11:52 O2 Del Method Room Air 01/04/25 11:52 01/03/25 01/04/25 01/04/25 22:59 06:59 14:59 Intake Total 1055 / 1055 206.063 / 7265.275 5381 / 1240 Balance 1055 / 1055 206.063 / 0030.066 0920 / 1240 Weight last 48 hrs Weight 84.368 kg Weight 77.973 kg Physical Exam 2 Narrative: General: No acute distress, AO x3 HEENT: PERRLA, pupils bilaterally equal and reactive, pallors not present Chest: Normal vesicular breath sounds, no added sounds, equal good air entry bilaterally CVS: S1-S2 regular, no murmurs, no tachycardia, no gallops, no rubs Abdomen: Soft, nontender, no organomegaly, bowel sounds present Neuro: No focal deficits, no facial deformity, AO x3, power 5/5 in all limbs Data 01/04/25 02:39 01/04/25 02:39 A&P Assessment and plan (1) Acute alteration in mental status: Unknown etiology. Infectious cause less likely as patient does not have any symptom, no leukocytosis, UA negative for UTI, on room air. Chest x-ray negative for consolidation. CT head negative for stroke. Cannot rule out breakthrough seizures. Valproic acid levels low. Check prolactin, load with Depakote 500 mg IV one-time. Have requested patient's family to bring home medications so that she can be on home dose. Check urine drug screen. Cannot rule out in setting of polypharmacy as seems patient is on high-dose Lyrica. For now start on 50 mg twice daily. Seizure precaution, fall precaution, aspiration precaution. Check A1c, lipid panel. Check ammonia level, CPK. LFTs within normal limits. Check respiratory viral panel. Start on IV hydration with D5 NS at 75 cc/h. (2) Epilepsy: Seizure precaution. Depakote 5 mg one-time. Requested family to bring home dose so can be started on home dose medication. (3) Hypokalemia: Potassium 3.1. Most likely in setting of vomiting. 80 mg of oral potassium. Repeat level in AM. Plan Full code Cardiac diet Protonix for PUD prophylaxis Heparin for DVT prophylaxis PDMP PDMP Reviewed: Not Reviewed Attestations 2 Medical Necessity Statement*: January 04, 2025 Patient is awake alert, able to answer basic questions.She remained afebrile and hemodynamically stable. Denies any specific complaints, however she has an extremely flat affect. I am uncertain if this is baseline or not. Will need to verify with family when they are at bedside. She received loading dose of valproic acid 500 mg IV yesterday.Will continue po depakote 500mg mg today. Possible that patient may have had a seizure at home given low levels of valproic acid. Check Depakote levels with a.m. labs. Family requested to bring him in Depakote for medication to verify dosing. Coding Level of Care Code Acute Code for Chg Fwd Moderate MDM includes number and complexity of problems actively addressed during encounter, amount and/or complexity of data reviewed/ordered and described risk of complication, morbidity or mortality of management as documented Diagnoses Acute alteration in mental status R41.82 Epilepsy G40.909 Hypokalemia E87.6
[2025-01-04] MEDS: pantoprazole 40 mg SDV IVP (19:57)
[2025-01-04] MEDS: divalproex ER 500 mg Tablet (24H) PO (19:57)
[2025-01-04 20:53] LABS: Amphetamines Screen Urine Negative (Negative); Barbiturates Screen Urine Negative (Negative); Benzodiazepines Screen Urine Negative (Negative); Cocaine Screen Urine Negative (Negative); Opiate Screen Urine Negative (Negative); PCP Screen Urine Negative (Negative); THC Screen Urine Positive (Negative)
[2025-01-05] VITALS (7 sets, daily range): BP systolic 145–167; BP diastolic 78–99; PULSE 57–90; RESP 16–18; TEMP 36.4–36.8; O2SAT 93–98
[2025-01-05 05:35] LABS: Basophils % 0.7 %; Eosinophils % 0.9 %; Lymphocytes # 1.7 10^3/uL (0.8-4.8); Lymphocytes % 37.7 %; Mean Corpuscular HGB Conc 33.4 g/dL (30-55); Mean Corpuscular Volume 95.8 fl (85-98); Mean Platelet Volume 11.8 fL (7.4-10.4); Monocytes # 0.4 10^3/uL (0.2-0.9); Monocytes % 7.8 %; Neutrophils # 2.34 10^3/uL (1.8-7.7); Neutrophils % 52.5 %; Nucleated Red Blood Cells % 0 %; Platelet Count 200 10^3/cmm (157-399); Red Blood Count 4.28 10^6/uL (3.85-5.65); Red Cell Distribution Width 13.1 % (12.1-15.1); White Blood Count 4.46 10^3/uL (3.29-11.43)
[2025-01-05 05:53] LABS: Valproic Acid Level 33.5 ug/mL (50-100)
[2025-01-05 05:58] LABS: Alanine Aminotransferase 16 U/L (0-33); Albumin Level 4.1 g/dL (3.5-5.2); Alkaline Phosphatase 108 U/L (35-105); Anion Gap 15.5 (5-19); Aspartate Amino Transferase 13 U/L (0-32); Blood Urea Nitrogen 18 mg/dL (8-23); Calcium 9.3 mg/dL (8.5-10.5); Carbon Dioxide 21 mmol/L (22-29); Chloride 114 mmol/L (98-107); Creatinine Clr Calc Pharmacy 114.9701; Globulin 2.2 g/dL (1.3-4.6); Glucose 95 mg/dL (65-115); Magnesium 1.8 mg/dL (1.7-2.3); Osmolality Calculated 306 mOsm/kg (285-295); Potassium 3.5 mmol/L (3.5-5.1); Sodium 147 mmol/L (136-145); Total Bilirubin 0.5 mg/dL (0.15-1.2); Total Protein 6.3 g/dL (6.6-8.7)
[2025-01-05] MEDS: pregabalin 50 mg Capsule PO ×2 (08:37→17:08)
[2025-01-05] MEDS: cyclobenzaprine 10 mg Tablet 5 MG PO (08:37)
[2025-01-05] MEDS: docusate sodium 100 mg Capsule PO (08:37)
[2025-01-05] MEDS: heparin 5,000 unit/mL INJ 1 mL 5000 UNIT SUBCUT ×2 (08:38→20:21)
--- NOTE | 2025-01-05 09:45 | PC.SOCIAL ---
IMM Update Pg. 2 of IMM updated and copy provided.
--- NOTE | 2025-01-05 09:52 | PC.CHAP ---
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 [] Patient/Family/Request visit [] Outpatient visit [] Follow-up visit [] Physician referral [] Code/Alert [x] Routine visit [] Staff referral [] Actively dying [] Patient sleeping [] Family support [] [] Out of room [] Palliative care [] [] Receiving care in room [] Pre-surgical visit [] Trauma [] Long length of stay [] ICU visit [] Other: Relational/Emotional Strength [] Patient feels connected with others/family/visitors/staff [] Distress [] Loneliness/isolation [] Abandonment Spirituality of Patient [x] Person of Jaquelin [] Attends Yazidi of their Jaquelin [x] Believes in Prayer [] Reads Bible or Muslim materials [] There are Spiritual issues to be addressed 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 Interventions [x] Prayer [x] Active listening [] Non-anxious presence [] Spiritual/emotional support [] Crisis/trauma care [] Spiritual counseling [] Bereavement support [] Provided bereavement packet [x] Provided Bible/devotional materials [] Provided toy/stuffed animal, coloring book to patient or family member [] Provided Communion [] Anointing/[place]ora [] Salvation [x] Completed spiritual assessment [] Other: Impact on Illness or Injury [] Angry [] Fearful [] Anxious [] Often cries [] Exhaustion [] Unable to work [] Unable to attend taoist [] Unable to walk/stand [] Unable to read [] Unable to drive [] Unable to eat/drink [] Unable to sleep [] Unable to be with family [] Patient intubated [] Other: Summary Time spent with patient 5 min
--- NOTE | 2025-01-05 12:01 | PC.NURSE ---
Patient stated Dr. Garg turned fluids off.
--- NOTE | 2025-01-05 14:22 | P.PN_ITS ---
Subjective 2 Subjective: seen today mental status seems to be at baseline no family at bedside pt appropriate to time place self person depakote level 33 says she takes depakote BID at home, does not know her dose Vitals/I&O/Wt Last Vital Signs Temp 97.9 F 01/05/25 11:54 Pulse 64 01/05/25 11:54 Resp 16 01/05/25 11:54 BP 167/90 01/05/25 11:54 Pulse Ox 98 01/05/25 11:54 O2 Del Method Room Air 01/05/25 11:54 01/04/25 01/05/25 01/05/25 22:59 06:59 14:59 Intake Total 971.25 / 2211.25 120 / 2331.25 600 / 600 Balance 971.25 / 2211.25 120 / 2331.25 600 / 600 Weight last 48 hrs Weight 84.368 kg Weight 84.368 kg Weight 77.973 kg Physical Exam 2 Narrative: General: No acute distress, AO x3 HEENT: PERRLA, pupils bilaterally equal and reactive, pallors not present Chest: Normal vesicular breath sounds, no added sounds, equal good air entry bilaterally CVS: S1-S2 regular, no murmurs, no tachycardia, no gallops, no rubs Abdomen: Soft, nontender, no organomegaly, bowel sounds present Neuro: No focal deficits, no facial deformity, AO x3 Data 01/05/25 04:56 01/05/25 04:56 A&P Assessment and plan (1) Acute alteration in mental status: Unknown etiology. Infectious cause less likely as patient does not have any symptom, no leukocytosis, UA negative for UTI, on room air. Chest x-ray negative for consolidation. CT head negative for stroke. Cannot rule out breakthrough seizures. Valproic acid levels low. Check prolactin, load with Depakote 500 mg IV one-time. Have requested patient's family to bring home medications so that she can be on home dose. Check urine drug screen. Cannot rule out in setting of polypharmacy as seems patient is on high-dose Lyrica. For now start on 50 mg twice daily. Seizure precaution, fall precaution, aspiration precaution. Check A1c, lipid panel. Check ammonia level, CPK. LFTs within normal limits. Check respiratory viral panel. Start on IV hydration with D5 NS at 75 cc/h. (2) Epilepsy: Seizure precaution. Depakote 5 mg one-time. Requested family to bring home dose so can be started on home dose medication. (3) Hypokalemia: Potassium 3.1. Most likely in setting of vomiting. 80 mg of oral potassium. Repeat level in AM. Plan Full code Cardiac diet Protonix for PUD prophylaxis Heparin for DVT prophylaxis 01/05/2025 continue depakote bid Says she used to see a neurologist in [place] however has not been seen in the last year. She states that it has been a while since she has had a follow- up. Her primary care doctor has been prescribing Depakote. Generally speaking states she has not had a seizure in the last 1 year however she is unsure of whether there was a seizure at time of admission or not. She does not feel confused any longer. She feels she is doing okay. Depakote level 33. Hyponatremic today. Sodium 147. Stop D5 normal saline and place on D5 water at 75 cc/h. Head CT negative on admission. Will refer to neurology at discharge. So far has remained seizure-free during hospitalization. UA negative. PDMP PDMP Reviewed: Not Reviewed Attestations 2 Medical Necessity Statement*: Continue to monitor overnight. If seizure-free by a.m. we will plan to discharge with neuro follow-up outpatient. Diagnoses Acute alteration in mental status R41.82 Epilepsy G40.909 Hypokalemia E87.6
[2025-01-05] MEDS: dextrose 5% 1,000 ML 75 ML IV (14:42)
--- NOTE | 2025-01-05 15:21 | PC.NURSE ---
this nurse placed a 20 gauge iv in patient left hand tolerated well. patient iv site in right hand occuluted and will not flush, iv discontinued with catheter intact upon removal.
--- NOTE | 2025-01-05 16:18 | PC.NURSE ---
Notified Dr. Garg at 1:17 of patients blood pressure 146/99 this am 167/[address] Garg acknowledged text no new orders.
[2025-01-05] MEDS: divalproex DR 500 mg Tablet PO (17:08)
[2025-01-05] MEDS: pantoprazole 40 mg SDV IVP (20:21)
[2025-01-06 00:07] VITALS: BP 148/89; PULSE 83; RESP 17; TEMP 36.6; O2SAT 94
[2025-01-06] MEDS: dextrose 5% 1,000 ML 75 ML IV (03:53)
[2025-01-06 04:24] VITALS: BP 146/82; PULSE 78; RESP 17; TEMP 36.5; O2SAT 94
[2025-01-06 06:00] VITALS: PULSE 63
[2025-01-06 06:07] LABS: Basophils % 0.8 %; Eosinophils # 0.1 10^3/uL (0.0-0.8); Eosinophils % 2.3 %; Hematocrit 41.9 % (36-47); Lymphocytes # 1.5 10^3/uL (0.8-4.8); Lymphocytes % 28.7 %; Mean Corpuscular HGB Conc 33.2 g/dL (30-55); Mean Corpuscular Volume 96.5 fl (85-98); Mean Platelet Volume 11.7 fL (7.4-10.4); Monocytes # 0.4 10^3/uL (0.2-0.9); Monocytes % 8.1 %; Neutrophils # 3.17 10^3/uL (1.8-7.7); Neutrophils % 59.7 %; Nucleated Red Blood Cells % 0 %; Platelet Count 189 10^3/cmm (157-399); Red Blood Count 4.34 10^6/uL (3.85-5.65); Red Cell Distribution Width 13.2 % (12.1-15.1)
[2025-01-06 06:25] LABS: Alanine Aminotransferase 15 U/L (0-33); Albumin Level 3.8 g/dL (3.5-5.2); Alkaline Phosphatase 106 U/L (35-105); Anion Gap 16.2 (5-19); Aspartate Amino Transferase 12 U/L (0-32); Blood Urea Nitrogen 12 mg/dL (8-23); Calcium 9.2 mg/dL (8.5-10.5); Carbon Dioxide 22 mmol/L (22-29); Chloride 110 mmol/L (98-107); Creatinine Clr Calc Pharmacy 114.9701; Globulin 2.6 g/dL (1.3-4.6); Glucose 95 mg/dL (65-115); Magnesium 1.7 mg/dL (1.7-2.3); Osmolality Calculated 300 mOsm/kg (285-295); Phosphorus 3.8 mg/dL (2.5-4.5); Potassium 3.2 mmol/L (3.5-5.1); Sodium 145 mmol/L (136-145); Total Bilirubin 0.4 mg/dL (0.15-1.2); Total Protein 6.4 g/dL (6.6-8.7)
[2025-01-06 07:50] VITALS: BP 143/86; PULSE 75; RESP 16; TEMP 37; O2SAT 99
[2025-01-06] MEDS: heparin 5,000 unit/mL INJ 1 mL 5000 UNIT SUBCUT (07:54)
[2025-01-06] MEDS: cyclobenzaprine 10 mg Tablet 5 MG PO (07:54)
[2025-01-06] MEDS: potassium chloride ER 20 mEq Tablet 40 MEQ PO (07:54)
[2025-01-06] MEDS: pregabalin 50 mg Capsule PO (07:54)
[2025-01-06] MEDS: divalproex DR 500 mg Tablet PO (07:54)
--- NOTE | 2025-01-06 08:12 | P.DS_ITS ---
Discharge Providers Date of Admission: 01/05/25 10:33 Date of Discharge: January 06, 2025 Attending Provider at Admission: Rossy Holguin MD Attending Provider at Discharge: Anabella Garg MD Primary Care Provider: Sia Aguilar Diagnoses at Discharge Discharge Diagnosis (1) Acute alteration in mental status: Status: Resolved (2) Epilepsy: Status: Acute (3) Hypokalemia: Status: Resolved Reason for Visit Reason for Visit: WEAKNESS Hospital Course Hospital Course Patient admitted to the hospital with altered mental status. She did have vomiting a few days prior. Unclear if patient was taking her seizure medication or not. Her sensorium did clear up as she was given a loading dose of Depakote in ER. Depakote level was checked as well. Patient mental status was not back to baseline. She was able to provide a history and was coherent and was alert oriented x 4. She has not seen a neurologist in a while therefore referral was placed for neurology follow-up outpatient at [facility]. CT head negative on admission. She was noted to be slightly hypernatremic with sodium 147. D5 water was given and sodium was corrected. Patient has remained seizure-free during hospital stay. Patient will be discharged home in stable condition at this time. All questions were answered. Lastly I did reduce her pregabalin dose to 50 twice daily. Previously she was on 200 mg daily. Patient agreeable to that. She will follow-up with her primary care doctor. I did discuss with her not to drive or operate heavy machinery secondary to her history of epilepsy. Patient agreeable. She demonstrates understanding. Seizure precaution guidelines were also given to her by nursing staff. Physical Exam Narrative: General: No acute distress, AO x3 HEENT: PERRLA, pupils bilaterally equal and reactive, pallors not present Chest: Normal vesicular breath sounds, no added sounds, equal good air entry bilaterally CVS: S1-S2 regular, no murmurs, no tachycardia, no gallops, no rubs Abdomen: Soft, nontender, no organomegaly, bowel sounds present Neuro: No focal deficits, no facial deformity, AO x3 Discharge Data Studies Completed and Pending Completed Studies During Hospitalization Category Date Time Status CT head wo con* [id number] Stat Cat Scan 01/03/25 13:04 Completed XR chest 1V portable [id number] Stat Exams 01/03/25 13:04 Completed Pending at discharge Category Date Time Status Creatine Kinase w/o Total Stat Lab 01/03/25 13:22 Received Radiology Impressions Chest X-Ray 01/03/25 13:04 IMPRESSION: Stable cardiomegaly Head CT 01/03/25 13:04 IMPRESSION: No acute intracranial abnormality. Laboratory Results WBC 5.30 10^3/uL (3.29-11.43) 01/06/25 05:04 RBC 4.34 10^6/uL (3.85-5.65) 01/06/25 05:04 Hgb 13.90 g/dL (11.27-16.99) 01/06/25 05:04 Hct 41.9 % (36-47) 01/06/25 05:04 MCV 96.5 fl (85-98) 01/06/25 05:04 MCH 32.0 pg (27-33) 01/06/25 05:04 MCHC 33.2 g/dL (30-55) 01/06/25 05:04 RDW 13.2 % (12.1-15.1) 01/06/25 05:04 Plt Count 189 10^3/cmm (157-399) 01/06/25 05:04 MPV 11.7 fL (7.4-10.4) H 01/06/25 05:04 Neut % (Auto) 59.7 % 01/06/25 05:04 Lymph % (Auto) 28.7 % 01/06/25 05:04 [place] % (Auto) 8.1 % 01/06/25 05:04 Eos % (Auto) 2.3 % 01/06/25 05:04 Baso % (Auto) 0.8 % 01/06/25 05:04 Neut # (Auto) 3.17 10^3/uL (1.8-7.7) 01/06/25 05:04 Lymph # (Auto) 1.5 10^3/uL (0.8-4.8) 01/06/25 05:04 [place] # (Auto) 0.4 10^3/uL (0.2-0.9) 01/06/25 05:04 Eos # (Auto) 0.1 10^3/uL (0.0-0.8) 01/06/25 05:04 Baso # (Auto) 0.0 10^3/uL (0.0-0.1) 01/06/25 05:04 Nucleated RBC % (auto) 0 % 01/06/25 05:04 Nucleated RBCs # 0.0 /100WBC 01/06/25 05:04 Sodium 145 mmol/L (136-145) 01/06/25 05:04 Potassium 3.2 mmol/L (3.5-5.1) L 01/06/25 05:04 Chloride 110 mmol/L (98-107) H 01/06/25 05:04 Carbon Dioxide 22 mmol/L (22-29) 01/06/25 05:04 Anion Gap 16.2 (5-19) 01/06/25 05:04 BUN 12 mg/dL (8-23) 01/06/25 05:04 Creatinine 0.5 mg/dL (0.5-0.9) 01/06/25 05:04 GFR Calculation 125.0 mL/min (90-130) 01/06/25 05:04 Glucose 95 mg/dL (65-115) 01/06/25 05:04 Estimat Average Glucose 111 01/03/25 13:22 Hemoglobin A1c 5.5 % (4.0-6.0) 01/03/25 13:22 Calculated Osmolality 300 mOsm/kg (285-295) H 01/06/25 05:04 Lactic Acid 1.1 mmol/L (0.5-2.2) 01/03/25 16:49 Calcium 9.2 mg/dL (8.5-10.5) 01/06/25 05:04 Phosphorus 3.8 mg/dL (2.5-4.5) 01/06/25 05:04 Magnesium 1.7 mg/dL (1.7-2.3) 01/06/25 05:04 Iron 59 ug/dL (37-145) 01/03/25 13:22 TIBC 379 mcg/dl 01/03/25 13:22 % Saturation 15.5 % (20-50) L 01/03/25 13:22 Unsat Iron Binding 320 ug/dL (112-347) 01/03/25 13:22 Total Bilirubin 0.4 mg/dL (0.15-1.2) 01/06/25 05:04 AST 12 U/L (0-32) 01/06/25 05:04 ALT 15 U/L (0-33) 01/06/25 05:04 Alkaline Phosphatase 106 U/L (35-105) H 01/06/25 05:04 Ammonia 25 umol/L (11-51) 01/03/25 16:49 Creatine Kinase 101 U/L (26-192) 01/03/25 13:22 Total Protein 6.4 g/dL (6.6-8.7) L 01/06/25 05:04 Albumin 3.8 g/dL (3.5-5.2) 01/06/25 05:04 Globulin 2.6 g/dL (1.3-4.6) 01/06/25 05:04 Triglycerides 93 mg/dL (0-150) 01/04/25 02:39 Cholesterol 198 mg/dL (0-200) 01/04/25 02:39 LDL Cholesterol, Calc 142 mg/dL (50-129) H 01/04/25 02:39 HDL Cholesterol 37 mg/dL (60-100) L 01/04/25 02:39 LDL/HDL Ratio 3.84 RATIO (0.00-3.22) H 01/04/25 02:39 Cholesterol/HDL Ratio 5.35 mg/dL (0.0-4.40) H 01/04/25 02:39 Vitamin B12 421 pg/mL (232-1245) 01/03/25 13:22 Folate 14.7 ng/mL (4.8-37.3) 01/04/25 02:39 Procalcitonin 0.03 ng/mL (0-0.5) 01/04/25 02:39 TSH 0.45 uIU/mL (0.27-4.20) 01/03/25 13:22 TSH 0.45 uIU/mL (0.27-4.20) 01/03/25 13:22 Prolactin 11.89 ng/mL (4.8-23.3) 01/03/25 16:49 Urine Color Yellow (Yellow) 01/03/25 14:59 Urine Appearance Clear (CLEAR) 01/03/25 14:59 Urine pH TNP 01/03/25 14:59 Ur Specific [place] Not Reportable 01/03/25 14:59 Urine Protein Not Reportable 01/03/25 14:59 Urine Glucose (UA) Not Reportable 01/03/25 14:59 Urine Ketones Not Reportable 01/03/25 14:59 Urine Blood Not Reportable 01/03/25 14:59 Urine Nitrate Not Reportable 01/03/25 14:59 Urine Bilirubin Not Reportable 01/03/25 14:59 Urine Urobilinogen Not Reportable 01/03/25 14:59 Ur Leukocyte Esterase Not Reportable 01/03/25 14:59 Urine RBC 0-4 /hpf (0-2) H 01/03/25 14:59 Urine WBC 5-10 /hpf (0-5) H 01/03/25 14:59 Ur Squamous Epith Cells 0-4 /hpf (0-5) H 01/03/25 14:59 Amorphous Sediment Not Reportable 01/03/25 14:59 Urine Bacteria Trace /hpf (NONE) 01/03/25 14:59 Urine Opiates Screen Negative ng/mL (Negative) 01/04/25 20:31 Ur Barbiturates Screen Negative ng/mL (Negative) 01/04/25 20:31 Valproic Acid 33.5 ug/mL (50-100) L 01/05/25 04:56 Ur Phencyclidine Scrn Negative ng/mL (Negative) 01/04/25 20:31 Ur Amphetamines Screen Negative ng/mL (Negative) 01/04/25 20:31 U Benzodiazepines Scrn Negative ng/mL (Negative) 01/04/25 20:31 Urine Cocaine Screen Negative ng/mL (Negative) 01/04/25 20:31 U Marijuana (THC) Screen Positive ng/mL (Negative) H 01/04/25 20:31 Ethyl Alcohol < 10 mg/dL (0-10) 01/03/25 16:49 Adenovirus (PCR) Not detected (NOT DETECT) 01/03/25 22:26 C. pneumoniae DNA (PCR) Not detected (NOT DETECT) 01/03/25 22:26 Coronavirus 229E (PCR) Not detected (NOT DETECT) 01/03/25 22: Human Metapneumovir PCR Not detected (NOT DETECT) 01/03/25 22:26 Influenza A (H1) PCR Not detected (NOT DETECT) 01/03/25 22:26 Influ A (H1/09) PCR Not detected (NOT DETECT) 01/03/25 22: Influenza A (H3) PCR Not detected (NOT DETECT) 01/03/25 22:26 Influenza Type A (PCR) Not detected (NOT DETECT) 01/03/25 22:26 Influenza Type B (PCR) Not detected (NOT DETECT) 01/03/25 22:26 M. pneumoniae (PCR) Not detected (NOT DETECT) 01/03/25 22:26 Parainfluenza 1 (PCR) Not detected (NOT DETECT) 01/03/25 22: Parainfluenza 2 (PCR) Not detected (NOT DETECT) 01/03/25 22: Parainfluenza 3 (PCR) Not detected (NOT DETECT) 01/03/25 22:26 Parainfluenza 4 (PCR) Not detected (NOT DETECT) 01/03/25 22:26 RSV Type A (PCR) Not detected (NOT DETECT) 01/03/25 22: RSV Type B (PCR) Not detected (NOT DETECT) 01/03/25 22: Entero/Rhino (PCR) Not detected (NOT DETECT) 01/03/25 22:26 SARS-CoV-2 (PCR) Not detected (NOT DETECT) 01/03/25 22:26 Vitals Last Vital Signs Temp 98.6 F 01/06/25 07:50 Pulse 75 01/06/25 07:50 Resp 16 01/06/25 07:50 BP 143/86 01/06/25 07:50 Pulse Ox 99 01/06/25 07:50 O2 Del Method Room Air 01/06/25 07:50 Discharge Plan Discharge Patient Disposition: Home Condition: Stable Prescriptions: New pregabalin 50 mg Capsule 50 mg PO BID Qty: 30 0RF Continued acetaminophen [Tylenol] 325 mg tablet 650 mg PO QID PRN (Reason: Pain) cyclobenzaprine 5 mg tablet 5 mg PO BEDTIME PRN (Reason: Muscle Spasm) divalproex 500 mg Tablet,Delayed Release (Dr/Ec) 500 mg PO BID celecoxib 400 mg Capsule 400 mg PO DAILY Discontinued pregabalin 200 mg capsule 200 mg PO BID Discharge Orders: Discharge Order (Routine); Ordered 01/06/25 Ordered By: Anabella Garg Referrals: Daniel Barnes MD [Physician, Neurology] - 1-3 days Referral Note: We have notified your physician's clinic of the need for a follow-up appointment to be scheduled. If you have not heard from them within the next 2 business days, please call them directly. Sia Aguilar [Primary Care Provider, [facility]] - 01/12/25 1:30 pm Discharge Diet: Regular Discharge Activity: Resume usual activity Patient Instructions: Pregabalin (By mouth), Epilepsy (GEN), Altered Mental Status (GEN), Opioid Safety Activity Restrictions/Additional Instructions: Seizure precautions Discharge Attestations Time Spent in Discharge Care*: greater than 30 min Quality Metrics Clinical Quality Measures [ No reported AMI, CVA or VTE this stay] Coding Level of Care Code Acute Code for Chg Fwd Diagnoses Acute alteration in mental status R41.82 Epilepsy G40.909 Hypokalemia E87.6
[2025-01-06 08:57] VITALS: BP 143/86; PULSE 75; RESP 16; TEMP 37; O2SAT 99
--- NOTE | 2025-01-06 09:46 | PC.CHAP ---
Pastoral Care Encounter/Spiritual Assessment Type of Contact [] Declined solution designer visit [] Patient/Family/Request visit [] Outpatient visit [] Follow-up visit [] Physician referral [] Code/Alert [x] Routine visit [] Staff referral [] Actively dying [] Patient sleeping [] Family support [] [] Out of room [] Palliative care [] [] Receiving care in room [] Pre-surgical visit [] Trauma [] Long length of stay [] ICU visit [] Other: Relational/Emotional Strength [x] Patient feels connected with others/family/visitors/staff [] Distress [] Loneliness/isolation [] Abandonment Spirituality of Patient [x] Person of Jaquelin [] Attends Mormon of their [place] [x] Believes in Prayer [] Reads Bible or Yarsani materials [] There are Spiritual issues to be addressed Sanitation Tank Washer Interventions [x] Prayer [x] Active listening [] Non-anxious presence [x] Spiritual/emotional support [] Crisis/trauma care [] Spiritual counseling [] Bereavement support [] Provided bereavement packet [] Provided Bible/devotional materials [] Provided toy/stuffed animal, coloring book to patient or family member [] Provided Communion [] Anointing/[place] [] Salvation [x] Completed spiritual assessment [] Other: Impact on Illness or Injury [] Angry [] Fearful [] Anxious [] Often cries [] Exhaustion [] Unable to work [] Unable to attend pentecostalism [] Unable to walk/stand [] Unable to read [] Unable to drive [] Unable to eat/drink [] Unable to sleep [] Unable to be with family [] Patient intubated [] Other: Summary Time spent with patient 5 min
[2025-01-07 21:26] LABS: Creatine Kinase BB Total None Detected (None Detected); Creatine Kinase MB Total 0 % (<5); Creatine Kinase MM Total 100 % (95-100)
== END 2025-01-06 10:15 | disposition home or self-care (01) | DRG 101 ==
LOC: ER 18:14 → MEDSURG 18:34
PROVIDERS: Student in an Organized Health Care Education/Training Program; Admitting Provider Student in an Organized Health Care Education/Training Program; Emergency Provider Emergency Medicine; PCP Nurse Practitioner Family; Visit Provider Internal Medicine
DX: G40.909 Epilepsy, unspecified, not intractable, without status epilepticus (principal); E87.0 Hyperosmolality and hypernatremia; R41.82 Altered mental status, unspecified; E87.6 Hypokalemia; E86.0 Dehydration; M79.7 Fibromyalgia; I10 Essential (primary) hypertension; Z87.891 Personal history of nicotine dependence
CPT/HCPCS: 12345; 36415; 70450; 71045; 80053; 80061; 80164; 80306; 80307; 81003; 82140; 82252; 82550; 82607; 82746; 83036; 83540; 83550; 83605; 83735; 84100; 84145; 84146; 84443; 85025; 87486; 87581; 87633; 93005; 94664; 96361; 96372; 96374; 99285; G0378; J1644; J2405; J2470; J3480; J3490; J7030; J7042; J7070; J9999

== ENCOUNTER 2025-04-07 15:03 | Emergency (ER) | payer MEDICARE, SELFPAY ==
[2025-04-07] VITALS (9 sets, daily range): BP systolic 104–162; BP diastolic 74–110; PULSE 97–107; RESP 15–18; TEMP 37; O2SAT 92–99; BMI 33.0
--- OUTSIDE RECORDS SUMMARY | 2025-04-07 15:11 | XMS_ITS | Clinical Summary ---
Author Organization [facility] Address [address] [place] [address] Care Team Providers Care Formula Maker Name Role Phone Unavailable Primary Care Provider Unavailabl e Allergies Active Allergy Reactions Criticality Noted Date Comments Acetaminophen-Codeine Other (See Comments) 11/04 Nausea, vomiting and dizziness. Thinks she passed out Amoxicillin-Pot Clavulanate Diarrhea Low 05/25/2015 Mirtazapine Other (See Comments) 04/25/2016 Caused insomnia Tramadol Seizure High 05/22/2014 Medications estradioL (ESTRACE) 1 mg tablet Take 1 Tablet (1 mg) by mouth daily. 30 Tablet 5 11/13/19 20 Active loratadine-pseudoephed rine (CLARITIN-D) 10-240 mg Extended Release 24 hour tablet Take 1 Tablet by mouth daily. 30 Tablet 3 12/03/19 20 Active valACYclovir (VALTREX) 1 gram tabletIndications:Recu rrent herpes labialis Take 2 Tablets (2,000 mg) by mouth 2 times daily. FOR 2 DOSES ONLY AT THE BEGINNING OF FEVER BLISTER OUTBREAK 20 Tablet 1 06/25/20 20 Active cyanocobalamin, vitamin B-12, (VITAMIN B-12 ORAL) Take by mouth. 10/16/19 21 Active traZODone (DESYREL) 100 mg tabletIndications:Fibr omyalgia,Sleep disturbance Take 0.5-1 Tablets (50-100 mg) by mouth daily at bedtime. For sleep and fibromyalgia. 90 Tablet 0 10/16/19 21 Active olopatadine (PATADAY) 0.2 % solutionIndications:Al lergic rhinoconjunctivitis of both eyes Administer 1 Drop in both eyes 1 time daily as needed for Allergies or Itching. 2.5 mL 5 10/16/19 21 Active calcium as carbonate (CALTRATE) 1,500 mg (600 mg elemental) Tablet Take 600 mg by mouth daily. Active pregabalin (LYRICA) 200 mg Capsule Take 1 Capsule (200 mg) by mouth every 8 hours. 90 Capsule 5 01/19/20 22 Active divalproex (DEPAKOTE ER) 500 mg Extended Release 24 hour tablet TAKE ONE TABLET TWICE A DAY 180 Tablet 1 05/29/20 22 Active calcium as carbonate (CALTRATE) 1,500 mg (600 mg elemental) Tablet Take 600 mg by mouth daily. 10/06/19 17 Active multivitamin (DAILY-YING) tablet Take 1 Tablet by mouth daily. 10/06/19 17 Active lysine 500 mg tablet Take 1,000 mg by mouth daily. 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 06/12/2015 Conversion disorder with attacks or seizures 02/2015 Overview (12/02/2020): Video eeg recorded 2010 Fibromyalgia 05/22/2014 Chronic midline low back pain with bilateral sci atica Resolved Problems Problem Noted Date Diagnosed Date Resolved Date Dry mouth 10/31/2016 11/14/2016 Possible Inflammatory arthri tis--hand / foot pain and swelling for 6 months 10/31/2016 7 Cognitive deficits 06/02/2016 6 Overview (12/01/2020): MoCa 14/30 was 21/30 on 06/2015 Head injury without concussi on or intracranial hemorrhage - Right eye ecchymoses after post seizure fall from bed 05/31/2016 10/19/2016 Closed fracture of distal en d of left radius with routine healing 08/25/2015 07/25/2016 Acute encephalopathy 07/13/2015 016 Status epilepticus 06/11/2015 5 Aphasia 06/11/2015 06/12/2015 Epilepsy 05/22/2014 06/09/2014 Sciatica 05/22/2014 06/09/2014 Encounters Date Type Department Care Team Description 03/31/2025 External Device Data [facility] ABSTRACTION Provider, Abstract 02/03/2025 External Device Data [facility] ABSTRACTION Provider, Abstract 02/03/2025 External Device Data [facility] ABSTRACTION Provider, Abstract 02/03/2025 External Device Data [facility] ABSTRACTION Provider, Abstract from Last 3 Months Immunizations Immunization Administration Dates Next Due INFLUENZA VACCINE QUADRIVALE NT 6 MOS UP PF IM 06/17/2020,05/15/2019,04/12/2017 Influenza Seasonal Unspecifi ed Formulation IM 07/02/2024,04/12/2017 Influenza Vaccine Quad Split 3+ Yrs Im 6 Family History Medical History Relation Name Comments Healthy Daughter 1 Healthy Daughter 2 Healthy Daughter 3 Healthy Father Healthy Mother Healthy Sister 1 Healthy Sister 2 Healthy Sister 3 Healthy Sister 4 Healthy Sister 5 Healthy Son Relation Name Status Comments Daughter 1 Alive Daughter 2 Alive Daughter 3 Alive Father Maternal Grandfather Maternal Grandmother Mother Alive Paternal Grandfather Paternal Grandmother Sister 1 Alive Sister 2 Alive Sister 3 Alive Sister 4 Alive Sister 5 Alive Son Alive Social History Tobacco Use Types Packs/Day Years Used Date Smoking Tobacco: Former Cigarettes Q uit: 10/14/2010 Smokeless Tobacco: Never Tobacco Cessation:Counseling Given: Yes Alcohol Use Standard Drinks/Week Comments No 0 (1 standard drink = 0.6 oz pur e alcohol) Comments Unknown Sex and Gender Information Value Date Recorded Sex Assigned at Not on file Legal Sex Female 4:44 AM SERVICE ORDER CLERK Gender Identity Not on file Sexual Orientation Not on file Last Filed Vital Signs Vital Sign Reading Time Taken Comments Blood Pressure 110/62 01/18/2022 11:56 AM CDT Pulse 63 01/18/2022 11:56 AM CDT Temperature 36.5 C (97.7 F) 10/15/2020 1:56 PM SERVICE ORDER CLERK Respiratory Rate 18 04/19/2021 12:32 PM CDT Oxygen Saturation 93% 01/18/2022 11:56 AM CDT Inhaled Oxygen Concentration - - Weight 70.3 kg (155 lb) 01/18/2022 11:56 AM CDT Height 154.9 cm (5' 1 ) 01/18/2022 11:56 AM CDT Body Mass Index 29.29 01/18/2022 11:56 AM CDT Plan of Treatment Health Maintenance Due Date Last Done Comments DTAP/TDAP/TD VACCINES (1 - Tdap) 1981 COLORECTAL SCREENING 2007 Colorectal Cancer Screening 2007 FIT-DNA Q 3 years 2007 FIT/FOBT Q 1 year 2007 Flex Sig/CT Colonography Q 5 years 2007 ZOSTER VACCINE (1 of 2) 2012 BREAST CANCER SCREENING 06/09/2023 06/09/20, 06/09/2022, 05/14/2020, Additional history exists INFLUENZA VACCINE (#1) 2025 , 07/20/2021, 06/17/2020, Additional history exists RSV VACCINE (60+ or ) (1 - 1-dose 75+ series) 2037 COVID-19 Vaccine Completed 07/02/2024, , 05/23/2022, Additional history exists Medical Devices Implanted Type Area Compliance Engineer Products Device Identifier Shelf Expiration Date Model / Serial / Lot Plate Vdr Va-Lcp Nrw 2.4mm .521 - [id number] Implanted:Qty: 1 on 08/17/2015 by Mani Zapata MD Plate Left: Arm SYNTHES STRATEC 111.5 21 [id number] / Screw St 2.4x12mm 201.762 - [id number] Implanted:Qty: 1 on 08/17/2015 by Mani Zapata MD Screw Left: Arm [employer]ATEC 201.762 / [id number] / Screw St 2.4x13mm 201.763 - [id number] Implanted:Qty: 1 on 08/17/2015 by Mani Zapata MD Screw Left: Arm [employer]ATEC 201.763 / / [id number] Screw Va Loc Strdr 2.4x18mm 118 - [id number] Implanted:Qty: 3 on 08/17/2015 by Mani Zapata MD Screw Left: Arm [employer]ATEC 210.1 18 [id number] / Screw Va Loc Strdr 2.4x20mm 120 - [id number] Implanted:Qty: 2 on 08/17/2015 by Mani Zapata MD Screw Left: Arm [employer]ATEC .1 [id number] / Procedures Procedure Name Priority Date/Time Associated Diagnosis Comments MAMMO SCREEN BILAT W OR WO CAD Routine 05/14/2020 12:00 AM CDT from Last 3 Months or Most Recently Relevant to Health Maintenance Results * MAMMO SCREEN BILAT W OR WO CAD (05/14/2020 12:00 AM CDT) Anatomical Region Laterality Modality Breast Bilateral Other Aj Vera MD MAMMO ORDERABLES Edited Result - Final from Last 3 Months or Most Recently Relevant to Health Maintenance Insurance MEDICARE PART A AND B [facility] [id number]
--- OUTSIDE RECORDS SUMMARY | 2025-04-07 15:11 | XMS_ITS | Encounter Summary ---
Author Organization [facility] Address [address] [place] [address] Care Team Providers Care Nurse Case Manager Name Role Phone Unavailable Primary Care Provider Unavailabl e Encounter Details Date Type Department Care Team (Late st Contact Info) Description 03/31/2025 External Device Data [facility] ABSTRACTION Provider, Abstract NO ADDRESS ON FILE Social History Tobacco Use Types Packs/Day Years Used Date Smoking Tobacco: Former Cigarettes Q uit: 10/14/2010 Smokeless Tobacco: Never Alcohol Use Standard Drinks/Week Comments No 0 (1 standard drink = 0.6 oz pur e alcohol) Comments Unknown Sex and Gender Information Value Date Recorded Sex Assigned at Not on file Legal Sex Female 4:44 AM BROOM MAKER Gender Identity Not on file Sexual Orientation Not on file documented as of this encounter Plan of Treatment Not on file documented as of this encounter Visit Diagnoses Not on filedocumented in this encounter
--- OUTSIDE RECORDS SUMMARY | 2025-04-07 15:11 | XMS_ITS | Encounter Summary ---
Author Organization [facility] Address [address] [place] [address] Care Team Providers Care Alarm Mechanism Adjuster Name Role Phone Aj Vera MD Primary Care Provider [phone] Encounter Details Date Type Department Care Team (Latest Contact Info) Description 06/18/2006 Outpatient Historical [facility] [address] [place] [address] AMBULANCE, [facility] Unspecified Nonpsychotic Mental Disorder (Primary Dx) Social History Tobacco Use Types Packs/Day Years Used Date Smoking Tobacco: Never Assessed Comments Unknown Sex and Gender Information Value Date Recorded Sex Assigned at Not on file Legal Sex Female 5:01 AM CANOPY STRINGER Gender Identity Not on file Sexual Orientation Not on file documented as of this encounter Plan of Treatment Not on file documented as of this encounter Visit Diagnoses Diagnosis Unspecified nonpsychotic mental disorder- Primary documented in this encounter Additional Health Concerns Infection Onset Date Last Indicated Resolved Time R/O COVID-19 01/21/2021 01/21/2021 01/22/2021 7:23 AM CDT documented as of this encounter Care Teams Alarm Mechanism Adjuster Relationship Specialty Start Date End Date Aj Vera MD [address] [place] [address] PCP - General Family Practice 12/13/16 documented as of this encounter
--- OUTSIDE RECORDS SUMMARY | 2025-04-07 15:11 | XMS_ITS | Clinical Summary ---
Author Organization [facility] Address [address] [place] [address] Care Team Providers Care Editorial Project Manager Name Role Phone Aj Vera MD Primary Care Provider [phone] Allergies Active Allergy Reactions Criticality Noted Date Comments Acetaminophen-Codeine Other (See Comments) 11/04 Nausea, vomiting and dizziness. Thinks she passed out Amoxicillin-Pot Clavulanate Diarrhea Low 05/25/2015 Mirtazapine Other (See Comments) 04/25/2016 Caused insomnia Tramadol Seizure High 05/22/2014 Medications acetaminophen (TYLENOL) 325 mg tablet Take 325 mg by mouth every 4 hours as needed. Active lysine 500 mg tablet Take 1,000 mg by mouth daily. Active calcium carbonate (CALTRATE) 600 mg (1,500 mg) Tablet Take 600 mg by mouth daily. Active multivitamin (DAILY-YING) tablet Take 1 Tablet by mouth daily. Active estradioL (ESTRACE) 1 mg tablet Take 1 Tablet (1 mg) by mouth daily. 30 Tablet 5 11/13/19 20 Active loratadine-pseudoephed rine (CLARITIN-D) 10-240 mg Extended Release 24 hour tablet Take 1 Tablet by mouth daily. 30 Tablet 3 12/03/19 20 Active divalproex (DEPAKOTE ER) 500 mg Extended Release 24 hour tabletIndications:Gene ralized idiopathic epilepsy, not intractable, without status epilepticus (CMS/HCC) Take 1 Tablet (500 mg) by mouth 2 times daily. 60 Tablet 12 04/15/20 20 Active pregabalin (LYRICA) 200 mg CapsuleIndications:Fib romyalgia 200 mg every 8 hours. 05/29/20 20 Active valACYclovir (VALTREX) 1 gram tabletIndications:Recu rrent herpes labialis Take 2 Tablets (2,000 mg) by mouth 2 times daily. FOR 2 DOSES ONLY AT THE BEGINNING OF FEVER BLISTER OUTBREAK 20 Tablet 1 06/25/20 20 Active gabapentin (NEURONTIN) 300 mg capsuleIndications:Fib romyalgia Take 2 Capsules (600 mg) by mouth 3 times daily. Use to taper as directed and discontinue. 100 Capsule 06/25/20 20 Active gabapentin (NEURONTIN) 600 mg tabletIndications:Gene ralized idiopathic epilepsy, not intractable, without status epilepticus (CMS/HCC) TAKE TWO TABLETS BY MOUTH THREE TIMES A DAY 180 Tablet 5 07/12/20 20 Active cyanocobalamin, vitamin B-12, (VITAMIN B-12 ORAL) Take by mouth. Active olopatadine (PATADAY) 0.2 % solutionIndications:Al lergic rhinoconjunctivitis of both eyes Administer 1 Drop in both eyes 1 time daily as needed for Allergies or Itching. 2.5 mL 5 10/16/19 21 Active traZODone (DESYREL) 100 mg tabletIndications:Fibr omyalgia,Sleep disturbance Take 0.5-1 Tablets (50-100 mg) by mouth daily at bedtime. For sleep and fibromyalgia. 90 Tablet 10/16/19 Active Active Problems Problem Noted Date Diagnosed Date Recurrent herpes labialis 06/26/2020 Acquired absence of both cervix and uterus 06/25 Other neutropenia 04/07/2018 Primary insomnia 11/14/2016 GIOVANNY positive 11/14/2016 Trigger middle finger of right hand 10/31/2016 Recurrent major depressive disorder, in partial remission 10/19/2016 Seizure disorder 06/03/2016 Overview (06/03/2016): May 2016 vEEG captured a rhythmic right temporal electrographic seizure. 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 06/12/2015 Conversion disorder with attacks or seizures 02/2015 Overview (06/12/2015): Video eeg recorded 2010 Fibromyalgia 05/22/2014 Chronic midline low back pain with bilateral sci atica Resolved Problems Problem Noted Date Diagnosed Date Resolved Date Possible Inflammatory arthri tis--hand / foot pain and swelling for 6 months 10/31/2016 7 Dry mouth 10/31/2016 11/14/2016 Cognitive deficits 06/02/2016 6 Overview (06/02/2016): MoCa 14 was 21/30 on 06/2015 Head injury without concussi on or intracranial hemorrhage - Right eye ecchymoses after post seizure fall from bed 05/31/2016 10/19/2016 Closed fracture of distal en d of left radius with routine healing 08/25/2015 07/25/2016 Acute encephalopathy 07/13/2015 016 Status epilepticus 06/11/2015 5 Aphasia 06/11/2015 06/12/2015 Epilepsy 05/22/2014 06/09/2014 Sciatica 05/22/2014 06/09/2014 Immunizations Immunization Administration Dates Next Due INFLUENZA VACCINE QUADRIVALE NT 6 MOS UP PF IM 06/17/2020,05/15/2019,04/12/2017 Influenza Vaccine Quad Split 3+ Yrs Im [...] Years Used Date Smoking Tobacco: Former Cigarettes 0.5 20 0 10/14/1990 - 10/14/2010 Smokeless Tobacco: Never Tobacco Cessation:Counseling Given: No Alcohol Use Standard Drinks/Week Comments No 0 (1 standard drink = 0.6 oz pur e alcohol) Comments No Sex and Gender Information Value Date Recorded Sex Assigned at Not on file Legal Sex Female 5:01 AM [employer] Gender Identity Not on file Sexual Orientation Not on file Last Filed Vital Signs Vital Sign Reading Time Taken Comments Blood Pressure 122/80 10/15/2020 1:56 PM [employer] Pulse 88 10/15/2020 1:56 PM [employer] Temperature 36.5 C (97.7 F) 10/15/2020 1:56 PM [employer] Respiratory Rate 18 10/15/2020 1:56 PM [employer] Oxygen Saturation 95% 10/15/2020 1:56 PM [employer] Room Air Inhaled Oxygen Concentration - - Weight 81.4 kg (179 lb 6.4 oz) 10/15/2020 1:56 P M [employer] Height 154.9 cm (5' 1 ) 10/15/2020 1:56 PM [employer] Body Mass Index 33.9 10/15/2020 1:56 PM [employer] Plan of Treatment Health Maintenance Due Date Last Done Comments DTAP/TDAP/TD VACCINES (1 - Tdap) 1981 Traditional Medicare (ACO) A nnual Wellness Visit 1981 COLORECTAL SCREENING 2007 FIT/FOBT Q 1 year 2007 Flex Sig/CT Colonography Q 5 years 2007 ZOSTER VACCINE (1 of 2) 2012 BREAST CANCER SCREENING 05/14/2021 05/14/20 20, 05/14/2020, 05/14/2020, Additional history exists Colorectal Cancer Screening 06/20/2021 FIT-DNA Q 3 years 06/20/2021 06/20/2018 INFLUENZA VACCINE (#1) 2025 0, 05/15/2019, 05/15/2019, Additional history exists RSV VACCINE (60+ or ) (1 - 1-dose 75+ series) 2037 Medical Devices Implanted Type Area [employer] Lathe Operator Device Identifier Shelf Expiration Date Model / Serial / Lot Plate Vdr Va-Lcp Nrw 2.4mm .521 - [id number] Implanted:Qty: 1 on 08/17/2015 by Mani Zapata MD at [facility] Plate Left: Arm SYNTHES STRATEC .5 21 / [id number] / Screw Va Loc Strdr 2.4x18mm .210.118 - [id number] Implanted:Qty: 3 on 08/17/2015 by Mani Zapata MD at [facility] Screw Left: Arm [employer]ATEC 210.1 18 / [id number] / Screw Va Loc Strdr 2.4x20mm 02.210.120 - [id number] Implanted:Qty: 2 on 08/17/2015 by Mani Zapata MD at [facility] Screw Left: Arm [employer]ATEC 210.1 20 / [id number] / Screw St 2.4x13mm 201.763 - [id number] Implanted:Qty: 1 on 08/17/2015 by Mani Zapata MD at [facility] Screw Left: Arm [employer]ATEC 201.763 / / [id number] Screw St 2.4x12mm 201.762 - [id number] Implanted:Qty: 1 on 08/17/2015 by Mani Zapata MD at [facility] Screw Left: Arm [employer]ATEC 201.762 / [id number] / Procedures Procedure Name Priority Date/Time Associated Diagnosis Comments MAMMO SCREEN BILAT W OR WO CAD Routine 05/14/2020 from Last 3 Months or Most Recently Relevant to Health Maintenance Results * MAMMO SCREEN BILAT W OR WO CAD (05/14/2020) Anatomical Region Laterality Modality Breast Bilateral Mammography Aj Vera MD MAMMO ORDERABLES Edited Result - Final from Last 3 Months or Most Recently Relevant to Health Maintenance Insurance MEDICARE PART A AND B Advance Directives For more information, please contact: [phone] * Full Code (Latest Code Status on File) Date Activated Date Inactivated Comments 05/31/2016 1:00 PM 06/03/2016 10:42 PM * Full Code Date Activated Date Inactivated Comments 08/17/2015 2:18 PM 08/17/2015 8:19 PM * Full Code Date Activated Date Inactivated Comments 07/13/2015 11:15 PM 07/15/2015 10:38 PM * Full Code Date Activated Date Inactivated Comments 06/11/2015 3:13 PM 06/14/2015 5:21 PM Care Teams Editorial Project Manager Relationship Specialty Start Date End Date Aj Vera MD [address] [place] [phone] PCP - General Family Practice 12/13/16
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
[2025-04-07] MEDS: iohexol 350 mg/mL 500 mL Btl (per mL) IV (15:33)
--- NOTE | 2025-04-07 16:51 | ECG_ITS ---
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 Measurements Intervals [place] Rate: 98 P: 40 IN: 167 QRS: -24 QRSD: 103 T: -2 QT: 361 QTc: 461 Interpretive Statements SINUS RHYTHM BORDERLINE LEFT AXIS DEVIATION [QRS AXIS < -20] VOLTAGE CRITERIA FOR LVH [MEETS CRITERIA IN ONE OF: R(aVL), S(V1), R(V5), R(V5/V6)+S(V1)] NONSPECIFIC ST & T-WAVE ABNORMALITY Compared to ECG 01/03/2025 18:20:14 T-wave abnormality now present Sinus bradycardia no longer present ST (T wave) deviation no longer present Electronically Signed On 04-07-2025 20:43:17 CDT by Adelso Petersen M.D. [email or web address]
[2025-04-07 16:55] LABS: Hematocrit 35.9 % (36-47); Hemoglobin 12.20 g/dL (11.27-16.99); Mean Corpuscular HGB Conc 34.0 g/dL (30-55); Mean Corpuscular Hemoglobin 31.9 pg (27-33); Mean Corpuscular Volume 93.7 fl (85-98); Nucleated Red Blood Cells % 0 %; Platelet Count 130 10^3/cmm (157-399); Red Blood Count 3.83 10^6/uL (3.85-5.65); White Blood Count 2.56 10^3/uL (3.29-11.43)
[2025-04-07 17:07] LABS: Alanine Aminotransferase 30 U/L (0-33); Albumin Level 4.2 g/dL (3.5-5.2); Alkaline Phosphatase 107 U/L (35-105); Anion Gap 14.8 (5-19); Aspartate Amino Transferase 51 U/L (0-32); Blood Urea Nitrogen 14 mg/dL (8-23); Calcium 9.1 mg/dL (8.5-10.5); Carbon Dioxide 24 mmol/L (22-29); Chloride 97 mmol/L (98-107); Creatinine Clr Calc Pharmacy 111.2949; Globulin 2.7 g/dL (1.3-4.6); Glucose 93 mg/dL (65-115); Lactic Sepsis W/Reflex 1.1 mmol/L (0.5-2.2); Osmolality Calculated 274 mOsm/kg (285-295); Potassium 3.8 mmol/L (3.5-5.1); Sodium 132 mmol/L (136-145); Total Protein 6.9 g/dL (6.6-8.7)
[2025-04-07 17:23] LABS: ABG PCO2 43.4 mmHg (35-45); ABG PH Result 7.38 (7.35-7.45); Alveolar-Arterial Oxygen Gradi 16.1 mmHg (5-10); Arterial Blood Gas Hematocrit 39.4 % (37-47); Blood Gas Allen Test Pos; Blood Gas LPM 5.0 %; Blood Gas Operator Identificat MONRO; Blood Gas Sample Site Radial, right; Blood Gas Sample Type Arterial; Carboxyhemoglobin 0.8 %THgb (0.4-20.1); Glucose Level-ABG 97.0 mg/dL (70-115); HCO3 ABG 25.7 mmol/L (22-26); Ionized Calcium Level - ABG 1.2 mmol/L (1.1-1.4); Methemoglobin 0.2 % (0.4-1.5); Oxygen Saturation ABG 98.6; PO2 ABG 106.0 mmHg (80.0-100.0); PO2 FiO2 Ratio Arterial Blood 265; Potassium Level - ABG 3.8 mmol/L (3.5-5.0); Sodium Level - ABG 137.0 mmol/L (131-143)
[2025-04-07 17:52] LABS: Glucose Urine UA Negative (Normal); Nitrate Urine Negative (Negative); Specific Gravity, Urine 1.025 (1.005-1.030)
[2025-04-07 17:56] LABS: Add Urine Microscopic? YES
[2025-04-07 17:59] LABS: PCP Screen Urine Negative (Negative)
--- NOTE | 2025-04-07 18:06 | DCPLANNER ---
Sent referral to Neurology for DM EEG
[2025-04-07] MEDS: valproic acid inj 1,000 MG in sodium chloride 0.9% 50 ML 60 MG IV (18:27)
[2025-04-07] MEDS: ondansetron 2 mg/ML SDV 2 mL 4 MG IVP (22:51)
[2025-04-08 01:00] VITALS: BP 136/91; PULSE 95; O2SAT 97
[2025-04-08 01:30] VITALS: BP 125/85; PULSE 94; O2SAT 98
--- NOTE | 2025-04-08 02:43 | PC.NURSE ---
THIS RN TOOK OVER CARE AT 0100.
[2025-04-08 02:45] VITALS: BP 125/85; PULSE 94; O2SAT 98
== END 2025-04-08 01:30 | disposition home or self-care (01) ==
PROVIDERS: Emergency Provider Physician Assistant; PCP Nurse Practitioner Family
DX: Z04.1 Encounter for examination and observation following transport accident (principal); G40.909 Epilepsy, unspecified, not intractable, without status epilepticus; Z87.891 Personal history of nicotine dependence; I10 Essential (primary) hypertension
CPT/HCPCS: 36415; 36600; 70450; 71260; 72125; 74177; 80051; 80053; 80164; 80306; 81001; 82330; 82550; 82805; 83605; 84146; 85025; 93005; 96365; 96366; 96375; 99285; J2310; J2405; J3490; J7030

== ENCOUNTER → 2025-04-10 09:40 | Outpatient (BNVA) | payer MEDICARE, SELFPAY | PROVIDERS: PCP Nurse Practitioner Family; Referring Provider Physician Assistant; Visit Provider Nurse Practitioner | DX: R56.9 Unspecified convulsions (principal) | CPT/HCPCS: 36415; 80076; 80164; 80203; 82140; 99204 ==